=== PATIENT | female | born 1945 | race Caucasian/White ===

== ENCOUNTER 2016-07-14 14:19 | Inpatient (IN) | END 2016-07-23 19:15 | DRG 481 | DX: S72.142A Displaced intertrochanteric fracture of left femur, initial encounter for closed fracture (principal); E87.1 Hypo-osmolality and hyponatremia; E11.9 Type 2 diabetes mellitus without complications; D64.9 Anemia, unspecified; I10 Essential (primary) hypertension; Z85.3 Personal history of malignant neoplasm of breast; Y92.018 Other place in single-family (private) house as the place of occurrence of the external cause; W18.39XA Other fall on same level, initial encounter; Z79.4 Long term (current) use of insulin ==

== ENCOUNTER 2016-07-23 14:08 | Inpatient (IN) | payer MEDICARE, OTHER ==
[~2016-07-23] VITALS: Ht 157.5 cm; Wt 47.1 kg
[~2016-07-23 14:08] MED LIST: ASPI-664 PO; HYDR-3498 PO; LISI-313 PO; METF-382 PO; URE25 PO
[2016-07-23] MEDS ORDERED: GLUCOSE GEL 15 GRAM TUBE PO PRN ×2 (20:29)
[2016-07-23] MEDS ORDERED: GLUCOSE GEL 15 GRAM TUBE BUCCAL PRN (20:29)
[2016-07-23] MEDS ORDERED: GLUCAGON 1 MG INJ IM PRN (20:29)
[2016-07-23] MEDS ORDERED: NALOXONE (0.4 MG/ML) INJ IV PRN (20:29)
[2016-07-23] MEDS ORDERED: morphine 2 MG INJ IV PRN (20:29)
[2016-07-23] MEDS ORDERED: HYDROCODONE/APAP (5/325) TAB PO PRN (20:29)
[2016-07-23] MEDS ORDERED: DEXTROSE 50% 50 ML SYRINGE IV PRN ×2 (20:29)
[2016-07-23] MEDS ORDERED: NALBUPHINE HCL (10 MG/1 ML) INJ IV PRN (20:29)
[2016-07-23] MEDS ORDERED: ACETAMINOPHEN 325 MG TAB PO PRN (20:29)
[2016-07-23] MEDS ORDERED: ONDANSETRON 4 MG INJ IV PRN (20:29)
[2016-07-23] MEDS: INSULIN ASPART [NOVOLOG] 3 ML PEN SC SCH (21:00)
[2016-07-23] MEDS ORDERED: LISINOPRIL 10 MG TAB PO SCH (21:00)
[2016-07-23] MEDS: FERROUS SULFATE (EC) 325 MG TAB PO SCH (21:48)
[2016-07-23] MEDS: METOPROLOL 25 MG TAB PO SCH (21:49)
[2016-07-23] MEDS: BETHANECHOL 25 MG TAB PO SCH (21:49)
[2016-07-23 21:50] VITALS: BP 157/78; PULSE 64; RESP 18
[2016-07-24 01:41] VITALS: Ht 157.5 cm; Wt 47.1 kg
[2016-07-24] MEDS: ACCU-CHEK XX SCH (02:00)
[2016-07-24 06:49] LABS: ADD SCAN DIFF NO
[2016-07-24 06:55] LABS: BASOPHILS % 0.7 % (0.0-2.0); EOSINOPHILS # 0.1 10^3/ul (0.0-0.5); EOSINOPHILS % 3.1 % (0.0-7.0); HEMATOCRIT 26.7 % (37.0-47.0); HEMOGLOBIN 8.9 g/dl (12.0-16.0); LYMPHOCYTES # 0.6 10^3/ul (0.8-2.9); LYMPHOCYTES % 14.7 % (15.0-51.0); MEAN CORPUSCULAR HEMOGLOBIN 31.8 pg (29.0-33.0); MEAN CORPUSCULAR HGB CONC 33.3 g/dl (32.0-37.0); MEAN CORPUSCULAR VOLUME 95.4 fl (82.0-101.0); MEAN PLATELET VOLUME 8.8 fl (7.4-10.4); MONOCYTE # 0.4 10^3/ul (0.3-0.9); NEUTROPHILS % 71.8 % (39.0-77.0); PLATELET COUNT 393 10^3/UL (140-415); RED CELL DISTRIBUTION WIDTH 13.2 % (11.5-14.5); WHITE BLOOD COUNT 4.2 10^3/ul (4.8-10.8)
[2016-07-24 07:07] LABS: ALBUMIN 2.6 g/dl (3.3-4.9)
[2016-07-24 07:08] LABS: POTASSIUM 3.9 mmol/L (3.5-5.1)
[2016-07-24 07:10] LABS: ALBUMIN/GLOBULIN RATIO 0.83; BILIRUBIN,INDIRECT 0.1 mg/dl (0-1.1); BILIRUBIN,TOTAL 0.1 mg/dl (0.2-1.3); CALCIUM 8.4 mg/dl (8.4-10.2); CREATININE 0.64 mg/dl (0.44-1.00); TOTAL PROTEIN 5.7 g/dl (6.1-8.1)
[2016-07-24] MEDS: INSULIN ASPART [NOVOLOG] 3 ML PEN SC SCH ×4 (07:35→20:43)
[2016-07-24 07:39] VITALS: BP 187/84; RESP 18
[2016-07-24] MEDS: FERROUS SULFATE (EC) 325 MG TAB PO SCH ×3 (08:51→20:42)
[2016-07-24] MEDS: FAMOTIDINE 20 MG TAB PO SCH (08:51)
[2016-07-24] MEDS: ASPIRIN (EC) 81 MG TAB PO SCH (08:51)
[2016-07-24] MEDS: METOPROLOL 25 MG TAB PO SCH (08:52)
[2016-07-24] MEDS: metFORMIN 500 MG TAB PO SCH ×3 (08:52→17:36)
[2016-07-24] MEDS: BETHANECHOL 25 MG TAB PO SCH ×3 (08:52→20:42)
[2016-07-24] MEDS ORDERED: LISINOPRIL 5 MG TAB PO SCH (09:00)
[2016-07-24 11:35] VITALS: BP 196/95; PULSE 83; RESP 16
[2016-07-24] MEDS: HYDROCODONE/APAP (5/325) TAB PO PRN (12:15)
--- NOTE | 2016-07-24 12:16 | CONS ---
DATE OF ADMISSION: 07/23/2016 DATE OF CONSULTATION: 07/24/2016 TYPE OF CONSULTATION: Rehabilitation post-admission physician evaluation REHABILITATION IMPAIRMENT CATEGORY: Left intertrochanteric hip fracture status post ORIF. ACTIVE COMORBIDITIES: 1. Acute pain syndrome. 2. Hypertension. 3. Uncontrolled diabetes. 4. Left breast carcinoma with history of mastectomy and chemotherapy. 5. Impairments in self-care and mobility. HISTORY OF PRESENT ILLNESS: The patient is a pleasant 71-year-old female with a history of hyperten sunitha, breast CA and diabetes mellitus, who was admitted after a mechanical fall with resultant left intertrochanteric hip fracture. The patient underwent left hip ORIF on 07/18/2016. [place] [facility] [place]. The patient has now been cleared to transfer to the rehabilitation unit for comprehensive interdisciplinary rehab care. FUNCTIONAL HISTORY: Prior to recent events, she was independent in self-care tasks and mobility. C urrently, she requires maximal assist for self-care and maximal assist for mobility tasks. SOCIAL HISTORY: The patient reports living at home with family and hopes to return there upon disch arge. PAST MEDICAL HISTORY: 1. Breast CA, status post mastectomy and chemotherapy. 2. Hypertension. 3. Diabetes mellitus. CURRENT MEDICATIONS: 1. Aspirin 81 mg p.o. daily. 2. Urecholine 25 mg p.o. t.i.d. 3. Insulin sliding scale. 4. Pepcid 20 mg p.o. daily. 5. Ferrous sulfate 325 p.o. t.i.d. 6. [place] p.r.n. 7. Zestril 5 mg p.o. b.i.d. 8. Glucophage 500 mg with meals. 9. Metoprolol 12.5 mg p.o. b.i.d. 10. Hydralazine 25 mg p.o. q.8h. p.r.n. ALLERGIES: THE PATIENT WITH NO KNOWN DRUG ALLERGIES. PHYSICAL EXAMINATION: VITAL SIGNS: The patient is currently afebrile, elevated blood pressure 180/90. HEENT: Extraocular motion intact. Oropharynx clear. NECK: Supple. LUNGS: Clear anteriorly. CARDIAC: S1, S2. ABDOMEN: Soft, nontender, positive bowel sounds. NEUROLOGIC: She is awake and alert and oriented x3. She will follow simple 1-step commands. Crani al nerves appear grossly intact. She has good strength in bilateral upper extremities and the right lower extremity. Dorsiflexion and plantar flexion intact on the left. PLAN: The patient has been admitted for comprehensive interdisciplinary acute rehab and is anticipa elly to tolerate 3 hours of daily therapy in divided doses for at least 5/7 days a week. The treatme nt plan will include: 1. Physical therapy to focus on bed mobility, transfers, and household ambulation with the goal of having the patient reach a standby assist level. 2. Occupational therapy to focus on hygiene, grooming, dressing, bathing, and toileting activities with goal of having patient reach standby assist level. 3. Rehabilitation nursing for carryover of therapeutic interventions, the goal of [place] and bladder, and the goal of pain adequately managed on oral medications. REHABILITATION BARRIER: Pain. INTERVENTION FOR BARRIER: Comprehensive interdisciplinary approach. ESTIMATED LENGTH OF STAY: 14 days. DISPOSITION GOAL: Home. I acknowledge that I performed a full physical examination on this patient within 24 hours of admiss ion to the rehabilitation unit. I believe the patient is a good candidate for comprehensive interdi sciplinary rehab care and is anticipated to make reasonable goals in a reasonable period of time as outlined above. Dictated By: NEENA WILDE/ALTAGRACIA Conf#: [id number] DID#: [id number]
--- NOTE | 2016-07-24 12:40 | PN ---
Date/Time of Note Date/Time of Note DATE: 07/24/16 TIME: 12:35 Assessment/Plan VTE Prophylaxis VTE Prophylaxis Intervention: SCD's Assessment/Plan Chief Complaint/Hosp Course Assessment/Plan - Intertrochanteric fracture of the left hip. S/p ORIF of the left hip 07/[address] Anderson, orthopedic surgery. Continue PT. continue pain management. - Breast cancer, status post left breast mastectomy and chemotherapy - Diabetes mellitus type 2, continue metformin and NovoLog from mild algorithm sliding scale - Hypertension, continue lisinopril and hydralazine as needed. Dr. Hunt is following in cardiology consultation. Continue to optimize blood pressure medication per cardiology. Further recommendations based on clinical course. Plan of care discussed with Dr. Hinds. Problems: Subjective 24 Hr Interval Summary Free Text/Dictation Patient's continues to have elevated blood pressure, will give extra dose of 10 mg of lisinopril, continue hydralazine IV as needed for systolic blood pressure above 170. Patient also complains of the left hip pain requiring morphine. Patient remains afebrile denies nausea vomiting. Exam/Review of Systems Vital Signs Vitals Vital Signs Date Time Temp Pulse Resp B/P Pulse Ox O2 Delivery O2 Flow Rate FiO2 07/24/16 11:35 83 16 196/95 95 Room Air 07/24/16 07:39 98.4 Intake and Output 07/23/16 07/23/16 07/24/16 15:00 23:00 07:00 Intake Total 300 ml Balance 300 ml Exam Constitutional: alert, oriented, well developed Psych: nl mood/affect, no complaints Head: atraumatic, normocephalic Eyes: nl conjunctiva ENMT: nl external ears & nose, nl lips & teeth Neck: non-tender, supple Respiratory: clear to auscultation, normal air movement Cardiovascular: nl pulses, regular rate and rhythm Gastrointestinal: non-tender, soft Musculoskeletal: nl extremities to inspection, other (Status post left hip ORIF ) Extremities: normal pulses 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10 Glucose Level 108 Hematocrit 26.7 L Hemoglobin 8.9 L Indirect Bilirubin 0.1 Lymphocytes # 0.6 L Lymphocytes % 14.7 L Mean Corpuscular Hemoglobin 31.8 Mean Corpuscular Hemoglobin Concent 33.3 Mean Corpuscular Volume 95.4 Mean Platelet Volume 8.8 Monocytes # 0.4 Monocytes % 9.0 Neutrophils # 3.0 Neutrophils % 71.8 Nucleated Red Blood Cells # 0.0 Nucleated Red Blood Cells % 0.0 Platelet Count 393 Potassium Level 3.9 Red Blood Count 2.80 L Red Cell Distribution Width 13.2 Sodium Level 136 Total Bilirubin 0.1 L Total Protein 5.7 L White Blood Count 4.2 L Medications Medications Current Medications Acetaminophen (Tylenol Tab) 650 mg Q6H PRN PO PAIN LEVEL 1-3 OR FEVER; Start at 20:29 Aspirin (Halfprin) 81 mg DAILY PO Last administered on 07/24/16t 08:51; Admin Dose 81 MG; Start 07/23/16 at 20:29 Miscellaneous Information 1 ea NOTE XX ; Start 07/23/16 at 20:29 Glucose (Glutose) 15 gm Q15M PRN PO DECREASED GLUCOSE; Start 07/23/16 at 20:29 Glucose (Glutose) 22.5 gm Q15M PRN PO DECREASED GLUCOSE; Start 07/23/16 at 20: 29 Dextrose (D50w Syringe) 25 ml Q15M PRN IV DECREASED GLUCOSE; Start 07/23/16 at 20:29 Dextrose (D50w Syringe) 50 ml Q15M PRN IV DECREASED GLUCOSE; Start 07/23/16 at 20:29 Glucagon (Glucagen) 1 mg Q15M PRN IM DECREASED GLUCOSE; Start 07/23/16 at 20:29 Glucose (Glutose) 15 gm Q15M PRN BUCCAL DECREASED GLUCOSE; Start 07/23/16 at 20 :29 Nalbuphine HCl (Nubain) 2.5 mg Q4H PRN IV PRURITUS; Start 07/23/16 at 20:29 Ondansetron HCl (Zofran Inj) 4 mg Q6H PRN IV NAUSEA AND/OR VOMITING; Start at 20:29 Naloxone HCl (Narcan) 0.2 mg Q2M PRN IV FOR RESP RATE 8 OR LESS; Start at 20:29 Morphine Sulfate (morphine) 2 mg Q3H PRN IV PAIN Last administered on 10:09; Admin Dose 2 MG; Start 07/23/16 at 20:29 Diagnostic Test (Pha) (Accucheck) 1 ea 02 XX ; Start 07/23/16 at 20:29 Famotidine (Pepcid) 20 mg DAILY PO Last administered on 07/24/16 08:51; Admin Dose 20 MG; Start 07/23/16 at 20:29 Bethanechol Chloride (Urecholine) 25 mg TID PO Last administered on 07/24/16 12:14; Admin Dose 25 MG; Start 07/23/16 at 20:29 Ferrous Sulfate (Ferrous Sulfate (Ec)) 325 mg TID PO Last administered on 12:14; Admin Dose 325 MG; Start 07/23/16 at 20:29 Acetaminophen/ Hydrocodone Bitart ([place] (5/325)) 1 tab Q4H PRN PO PAIN Last administered on 07/24/16 12:15; Admin Dose 1 TAB; Start 07/23/16 at 21:00 Lisinopril (Zestril) 10 mg BID PO ; Start 07/24/16 at 21:00; Status UNV Hydralazine HCl (Apresoline) 10 mg Q6 PRN IV SBP>170; Start 07/24/16 at 12:30; Status UNV ERICK PRICE Jul 24, 2016 12:40
[2016-07-24] MEDS ORDERED: LISINOPRIL 10 MG TAB PO ONE (13:00)
[2016-07-24] MEDS: LISINOPRIL 5 MG TAB PO SCH ×2 (13:05→20:43)
[2016-07-24] MEDS: AMLODIPINE 5 MG TAB PO SCH (15:23)
--- NOTE | 2016-07-24 15:45 | CONS ---
Date/Time of Note Date/Time of Note DATE: 07/24/16 TIME: 15:44 Assessment/Plan Assessment/Plan Additional Assessment/Plan Hip fracture status post surgical repair Preserved ejection fraction Hypertension Diabetes Breast cancer -Blood pressure trend remains elevated, will start Norvasc and low-dose hydrochlorothiazide. Pain control. Consultation Date/Type/Reason Admit Date/Time Jul 23, 2016 at 19:40 Initial Consult Date Type of Consultation: cv 24 HR Interval Summary Free Text/Dictation Denies shortness of breath, chest pain or palpitations Exam/Review of Systems Vital Signs Vitals Vital Signs Date Time Temp Pulse Resp B/P Pulse Ox O2 Delivery O2 Flow Rate FiO2 07/24/16 11:35 83 16 196/95 95 Room Air 07/24/16 07:39 98.4 Intake and Output 07/23/16 07/23/16 07/24/16 14:59 22:59 06:59 Intake Total 300 ml Balance 300 ml Exam No apparent distress Constitutional: alert, oriented Head: normocephalic Neck: supple Respiratory: clear to auscultation, normal air movement Cardiovascular: other (S1-S2 heard), regular rate and rhythm Gastrointestinal: bowel sounds, non-tender, other (No guarding), soft Extremities: other (No edema or cyanosis) Results Result Diagram: 07/24/16 0615 07/24/16 0615 Results 24 hrs Laboratory Tests Test 07/23/16 21:18 07/24/16 06:15 07/24/16 07:34 07/24/16 11:29 Bedside Glucose 126 117 113 Alanine Aminotransferase (ALT/SGPT) 35 Albumin 2.6 L Albumin/Globulin Ratio 0.83 Alkaline Phosphatase 103 Anion Gap 13 Aspartate Amino Transf (AST/SGOT) 37 Basophils # 0.0 Basophils % 0.7 Blood Urea Nitrogen 14 Calcium Level 8.4 Carbon Dioxide Level 23 Chloride Level 104 Creatinine 0.64 Direct Bilirubin 0.00 Eosinophils # 0.1 Eosinophils % 3.1 Globulin 3.10 Glucose Level 108 Hematocrit 26.7 L Hemoglobin 8.9 L Indirect Bilirubin 0.1 Lymphocytes # 0.6 L Lymphocytes % 14.7 L Mean Corpuscular Hemoglobin 31.8 Mean Corpuscular Hemoglobin Concent 33.3 Mean Corpuscular Volume 95.4 Mean Platelet Volume 8.8 Monocytes # 0.4 Monocytes % 9.0 Neutrophils # 3.0 Neutrophils % 71.8 Nucleated Red Blood Cells # 0.0 Nucleated Red Blood Cells % 0.0 Platelet Count 393 Potassium Level 3.9 Red Blood Count 2.80 L Red Cell Distribution Width 13.2 Sodium Level 136 Total Bilirubin 0.1 L Total Protein 5.7 L White Blood Count 4.2 L Medications Medications Current Medications Acetaminophen (Tylenol Tab) 650 mg Q6H PRN PO PAIN LEVEL 1-3 OR FEVER; Start at 20:29 Aspirin (Halfprin) 81 mg DAILY PO Last administered on 07/24/16 08:51; Admin Dose 81 MG; Start 07/23/16 at 20:29 Miscellaneous Information 1 ea NOTE XX ; Start 07/23/16 at 20:29 Glucose (Glutose) 15 gm Q15M PRN PO DECREASED GLUCOSE; Start 07/23/16 at 20:29 Glucose (Glutose) 22.5 gm Q15M PRN PO DECREASED GLUCOSE; Start 07/23/16 at 20: 29 Dextrose (D50w Syringe) 25 ml Q15M PRN IV DECREASED GLUCOSE; Start 07/23/16 at 20:29 Dextrose (D50w Syringe) 50 ml Q15M PRN IV DECREASED GLUCOSE; Start 07/23/16 at 20:29 Glucagon (Glucagen) 1 mg Q15M PRN IM DECREASED GLUCOSE; Start 07/23/16 at 20:29 Glucose (Glutose) 15 gm Q15M PRN BUCCAL DECREASED GLUCOSE; Start 07/23/16 at 20 :29 Nalbuphine HCl (Nubain) 2.5 mg Q4H PRN IV PRURITUS; Start 07/23/16 at 20:29 Ondansetron HCl (Zofran Inj) 4 mg Q6H PRN IV NAUSEA AND/OR VOMITING; Start at 20:29 Naloxone HCl (Narcan) 0.2 mg Q2M PRN IV FOR RESP RATE 8 OR LESS; Start at 20:29 Morphine Sulfate (morphine) 2 mg Q3H PRN IV PAIN Last administered on 10:09; Admin Dose 2 MG; Start 07/23/16 at 20:29 Diagnostic Test (Pha) (Accucheck) 1 ea 02 XX ; Start 07/23/16 at 20:29 Famotidine (Pepcid) 20 mg DAILY PO Last administered on 07/24/16 08:51; Admin Dose 20 MG; Start 07/23/16 at 20:29 Bethanechol Chloride (Urecholine) 25 mg TID PO Last administered on 07/24/16 12:14; Admin Dose 25 MG; Start 07/23/16 at 20:29 Ferrous Sulfate (Ferrous Sulfate (Ec)) 325 mg TID PO Last administered on 12:14; Admin Dose 325 MG; Start 07/23/16 at 20:29 Acetaminophen/ Hydrocodone Bitart ([place] (5/325)) 1 tab Q4H PRN PO PAIN Last administered on 07/24/16 12:15; Admin Dose 1 TAB; Start 07/23/16 at 21:00 Lisinopril (Zestril) 10 mg BID PO Last administered on 07/24/16 13:05; Admin Dose 10 MG; Start 07/24/16 at 13:00 Hydralazine HCl (Apresoline) 10 mg Q6 PRN IV SBP>170; Start 07/24/16 at 12:30 Amlodipine Besylate (Norvasc) 5 mg DAILY PO Last administered on 07/24/16 15: 23; Admin Dose 5 MG; Start 07/24/16 at 15:00 Jose Hunt DO Jul 24, 2016 15:45
[2016-07-24] MEDS ORDERED: HYDROCHLOROTHIAZIDE 12.5 MG CAP PO SCH (16:00)
[2016-07-24] MEDS ORDERED: HYDROCHLOROTHIAZIDE 25 MG TAB PO SCH (16:00)
[2016-07-24] MEDS: HYDROCHLOROTHIAZIDE 25 MG TAB PO SCH (17:37)
[2016-07-24 19:36] VITALS: BP 158/74; RESP 19
[2016-07-25 00:47] LABS: ADD UMIC YES; URINE BILIRUBIN (Dip) NEGATIVE (NEGATIVE); URINE BLOOD (Dip) TRACE (NEGATIVE); URINE COLOR LT. YELLOW (YELLOW); URINE GLUCOSE (Dip) NEGATIVE (NEGATIVE); URINE KETONES (Dip) NEGATIVE (NEGATIVE); URINE LEUKOCYTE ESTERASE (Dip) NEGATIVE (NEGATIVE); URINE NITRITE (Dip) NEGATIVE (NEGATIVE); URINE TOTAL PROTEIN (Dip) 2+ (NEGATIVE); URINE UROBILINOGEN (Dip) 0.2 E.U./dL (0.1-1.0)
[2016-07-25 00:56] LABS: MUCUS,URINE MODERATE
[2016-07-25 00:57] LABS: SQUAMOUS EPITHELIAL CELL,UR MODERATE
[2016-07-25] MEDS: ACCU-CHEK XX SCH (02:00)
[2016-07-25] MEDS: INSULIN ASPART [NOVOLOG] 3 ML PEN SC SCH ×4 (07:35→20:23)
[2016-07-25 08:08] VITALS: BP 189/88; RESP 18
[2016-07-25] MEDS: ASPIRIN (EC) 81 MG TAB PO SCH (08:49)
[2016-07-25] MEDS: metFORMIN 500 MG TAB PO SCH ×3 (08:49→17:42)
[2016-07-25] MEDS: HYDROCHLOROTHIAZIDE 25 MG TAB PO SCH (08:49)
[2016-07-25] MEDS: FERROUS SULFATE (EC) 325 MG TAB PO SCH ×3 (08:49→20:22)
[2016-07-25] MEDS: BETHANECHOL 25 MG TAB PO SCH ×3 (08:50→20:23)
[2016-07-25] MEDS: LISINOPRIL 5 MG TAB PO SCH ×2 (08:50→20:23)
[2016-07-25] MEDS: AMLODIPINE 5 MG TAB PO SCH ×2 (08:50→20:23)
[2016-07-25] MEDS: FAMOTIDINE 20 MG TAB PO SCH (08:50)
[2016-07-25] MEDS: HYDROCODONE/APAP (5/325) TAB PO PRN (09:48)
[2016-07-25 09:50] VITALS: BP 176/82; PULSE 91; RESP 20
[2016-07-25] MEDS: hydrALAzine 20 MG INJ IV PRN (10:52)
[2016-07-25 11:40] VITALS: BP 145/68; PULSE 88; RESP 20
--- NOTE | 2016-07-25 11:49 | PN ---
Date/Time of Note Date/Time of Note DATE: 07/25/16 TIME: 11:48 Assessment/Plan VTE Prophylaxis VTE Prophylaxis Intervention: SCD's Lines/Catheters IV Catheter Type (from Nrs): [place] Urinary Cath still in place: No Assessment/Plan Chief Complaint/Hosp Course Assessment/Plan - Intertrochanteric fracture of the left hip. S/p ORIF of the left hip 07/[address] Anderson, orthopedic surgery. Continue PT. continue pain management. - Breast cancer, status post left breast mastectomy and chemotherapy - Diabetes mellitus type 2, continue metformin and NovoLog from mild algorithm sliding scale - Hypertension, continue lisinopril, Norvasc, and hydralazine as needed. Dr. Hunt is following in cardiology consultation. Continue to optimize blood pressure medication per cardiology. Further recommendations based on clinical course. Plan of care discussed with Dr. Hinds. Problems: Exam/Review of Systems Vital Signs Vitals Vital Signs Date Time Temp Pulse Resp B/P Pulse Ox O2 Delivery O2 Flow Rate FiO2 07/25/16 09:50 91 20 176/82 07/25/16 08:08 98.5 97 07/24/16 11:35 Room Air Intake and Output 07/24/16 07/24/16 07/25/16 14:59 22:59 06:59 Intake Total 1370 ml 360 ml 240 ml Balance 1370 ml 360 ml 240 ml Exam Constitutional: alert, oriented, well developed Psych: nl mood/affect, no complaints Head: atraumatic, normocephalic Eyes: nl conjunctiva ENMT: nl external ears & nose, nl lips & teeth Neck: non-tender, supple Respiratory: clear to auscultation, normal air movement Cardiovascular: nl pulses, regular rate and rhythm Gastrointestinal: non-tender, soft Musculoskeletal: nl extremities to inspection, other (Status post left hip ORIF ) Extremities: normal pulses Neurological: SLURRY CONTROL OPERATOR HELPER II-XII 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 Skin: other (Status post left mastectomy) Results Result Diagram: 07/24/1615 07/24/1615 Results 24 hrs Laboratory Tests Test 07/24/16 17:11 07/24/16 20:40 07/25/16 07:51 07/25/16 11:41 Bedside Glucose 108 125 119 111 Medications Medications Current Medications Acetaminophen (Tylenol Tab) 650 mg Q6H PRN PO PAIN LEVEL 1-3 OR FEVER; Start 3 /13/17 at 20:29 Aspirin (Halfprin) 81 mg DAILY PO Last administered on 07/25/16 08:49; Admin Dose 81 MG; Start 07/23/16 at 20:29 Miscellaneous Information 1 ea NOTE XX ; Start 07/23/16 at 20:29 Glucose (Glutose) 15 gm Q15M PRN PO DECREASED GLUCOSE; Start 07/23/16 at 20:29 Glucose (Glutose) 22.5 gm Q15M PRN PO DECREASED GLUCOSE; Start 07/23/16 at 20: 29 Dextrose (D50w Syringe) 25 ml Q15M PRN IV DECREASED GLUCOSE; Start 07/23/16 at 20:29 Dextrose (D50w Syringe) 50 ml Q15M PRN IV DECREASED GLUCOSE; Start 07/23/16 at 20:29 Glucagon (Glucagen) 1 mg Q15M PRN IM DECREASED GLUCOSE; Start 07/23/16 at 20:29 Glucose (Glutose) 15 gm Q15M PRN BUCCAL DECREASED GLUCOSE; Start 07/23/16 at 20 :29 Nalbuphine HCl (Nubain) 2.5 mg Q4H PRN IV PRURITUS; Start 07/23/16 at 20:29 Ondansetron HCl (Zofran Inj) 4 mg Q6H PRN IV NAUSEA AND/OR VOMITING; Start at 20:29 Naloxone HCl (Narcan) 0.2 mg Q2M PRN IV FOR RESP RATE 8 OR LESS; Start at 20:29 Morphine Sulfate (morphine) 2 mg Q3H PRN IV PAIN Last administered on 10:09; Admin Dose 2 MG; Start 07/23/16 at 20:29 Diagnostic Test (Pha) (Accucheck) 1 ea 02 XX ; Start 07/23/16 at 20:29 Famotidine (Pepcid) 20 mg DAILY PO Last administered on 07/25/16 08:50; Admin Dose 20 MG; Start 07/23/16 at 20:29 Bethanechol Chloride (Urecholine) 25 mg TID PO Last administered on 07/25/16 08:50; Admin Dose 25 MG; Start 07/23/16 at 20:29 Ferrous Sulfate (Ferrous Sulfate (Ec)) 325 mg TID PO Last administered on 08:49; Admin Dose 325 MG; Start 07/23/16 at 20:29 Acetaminophen/ Hydrocodone Bitart ([place] (5/325)) 1 tab Q4H PRN PO PAIN Last administered on 07/25/16 09:48; Admin Dose 1 TAB; Start 07/23/16 at 21:00 Lisinopril (Zestril) 10 mg BID PO Last administered on 07/25/16 08:50; Admin Dose 10 MG; Start 07/24/16 at 13:00 Hydralazine HCl (Apresoline) 10 mg Q6 PRN IV SBP>170 Last administered on 10:52; Admin Dose 10 MG; Start 07/24/16 at 12:30 Hydrochlorothiazide (Hydrochlorothiazide) 6.25 mg DAILY PO Last administered on 07/25/16 08:49; Admin Dose 6.25 MG; Start 07/24/16 at 16:30 Amlodipine Besylate (Norvasc) 5 mg BID PO ; Start 07/25/16 at 21:00 ERICK PRICE Jul 25, 2016 11:49
--- NOTE | 2016-07-25 11:59 | CONS ---
Date/Time of Note Date/Time of Note DATE: 07/25/16 TIME: 11:57 Assessment/Plan Assessment/Plan Additional Assessment/Plan Hip fracture status post surgical repair Preserved ejection fraction Hypertension, uncontrolled Diabetes Breast cancer -Blood pressure trend remains elevated, would increase Norvasc to twice daily. Patient also has hydralazine as needed. Consultation Date/Type/Reason Admit Date/Time Jul 23, 2016 at 19:40 Type of Consultation: cv 24 HR Interval Summary Free Text/Dictation Patient complaining of dizziness during physical therapy. Blood pressure elevated. Feels better now after medication Exam/Review of Systems Vital Signs Vitals Vital Signs Date Time Temp Pulse Resp B/P Pulse Ox O2 Delivery O2 Flow Rate FiO2 07/25/16 09:50 91 20 176/82 07/25/16 08:08 98.5 97 07/24/16 11:35 Room Air Intake and Output 07/24/16 07/24/16 07/25/16 15:00 23:00 07:00 Intake Total 1370 ml 360 ml 240 ml Balance 1370 ml 360 ml 240 ml Exam No apparent distress Constitutional: alert, frail, oriented Head: normocephalic Neck: supple Respiratory: clear to auscultation, normal air movement Cardiovascular: other (S1-S2 heard), regular rate and rhythm Gastrointestinal: bowel sounds, non-tender, other (No guarding), soft Extremities: other (No edema or cyanosis) Results Result Diagram: 07/24/16 0615 07/24/16 0615 Results 24 hrs Laboratory Tests Test 07/24/16 17:11 07/24/16 20:40 07/25/16 07:51 07/25/16 11:41 Bedside Glucose 108 125 119 111 Medications Medications Current Medications Acetaminophen (Tylenol Tab) 650 mg Q6H PRN PO PAIN LEVEL 1-3 OR FEVER; Start at 20:29 Aspirin (Halfprin) 81 mg DAILY PO Last administered on 07/25/16t 08:49; Admin Dose 81 MG; Start 07/23/16 at 20:29 Miscellaneous Information 1 ea NOTE XX ; Start 07/23/16 at 20:29 Glucose (Glutose) 15 gm Q15M PRN PO DECREASED GLUCOSE; Start 07/23/16 at 20:29 Glucose (Glutose) 22.5 gm Q15M PRN PO DECREASED GLUCOSE; Start 07/23/16 at 20: 29 Dextrose (D50w Syringe) 25 ml Q15M PRN IV DECREASED GLUCOSE; Start 07/23/16 at 20:29 Dextrose (D50w Syringe) 50 ml Q15M PRN IV DECREASED GLUCOSE; Start 07/23/16 at 20:29 Glucagon (Glucagen) 1 mg Q15M PRN IM DECREASED GLUCOSE; Start 07/23/16 at 20:29 Glucose (Glutose) 15 gm Q15M PRN BUCCAL DECREASED GLUCOSE; Start 07/23/16 at 20 :29 Nalbuphine HCl (Nubain) 2.5 mg Q4H PRN IV PRURITUS; Start 07/23/16 at 20:29 Ondansetron HCl (Zofran Inj) 4 mg Q6H PRN IV NAUSEA AND/OR VOMITING; Start at 20:29 Naloxone HCl (Narcan) 0.2 mg Q2M PRN IV FOR RESP RATE 8 OR LESS; Start at 20:29 Morphine Sulfate (morphine) 2 mg Q3H PRN IV PAIN Last administered on 10:09; Admin Dose 2 MG; Start 07/23/16 at 20:29 Diagnostic Test (Pha) (Accucheck) 1 ea 02 XX ; Start 07/23/16 at 20:29 Famotidine (Pepcid) 20 mg DAILY PO Last administered on 07/25/16 08:50; Admin Dose 20 MG; Start 07/23/16 at 20:29 Bethanechol Chloride (Urecholine) 25 mg TID PO Last administered on 07/25/16 08:50; Admin Dose 25 MG; Start 07/23/16 at 20:29 Ferrous Sulfate (Ferrous Sulfate (Ec)) 325 mg TID PO Last administered on 08:49; Admin Dose 325 MG; Start 07/23/16 at 20:29 Acetaminophen/ Hydrocodone Bitart ([place] (5/325)) 1 tab Q4H PRN PO PAIN Last administered on 07/25/16 09:48; Admin Dose 1 TAB; Start 07/23/16 at 21:00 Lisinopril (Zestril) 10 mg BID PO Last administered on 07/25/16 08:50; Admin Dose 10 MG; Start 07/24/16 at 13:00 Hydralazine HCl (Apresoline) 10 mg Q6 PRN IV SBP>170 Last administered on 10:52; Admin Dose 10 MG; Start 07/24/16 at 12:30 Hydrochlorothiazide (Hydrochlorothiazide) 6.25 mg DAILY PO Last administered on 07/25/16 08:49; Admin Dose 6.25 MG; Start 07/24/16 at 16:30 Amlodipine Besylate (Norvasc) 5 mg BID PO ; Start 07/25/16 at 21:00 Jose Hunt DO Jul 25, 2016 11:58
--- NOTE | 2016-07-25 13:07 | PN ---
Date/Time of Note Date/Time of Note DATE: 07/25/16 TIME: 13:03 Assessment/Plan VTE Prophylaxis VTE Prophylaxis Intervention: LMWH Lines/Catheters IV Catheter Type (from Nrsg): Saline Lock Urinary Cath still in place: No Assessment/Plan Assessment/Plan 1. Left intertrochanteric hip fracture status post ORIF. With impaired mobility/ gait/ADLs. Continue PT/OT. Max assistance for transfers. 2. Acute postoperative pain syndrome. Continue current pain regimen including prn norco. May need to adjust further if pain contributing to increased BP. 3. Hypertension. BP elevated. Cardiology adjusting regimen. 4. Diabetes. Continue to monitor blood sugars, blood sugars controlled. Continue regimen including metformin and insulin sliding scale per internal medicine. 5. History of left breast carcinoma s/p mastectomy and chemotherapy. 6. Anemia. Monitor hemoglobin/hematocrit. Subjective 24 Hr Interval Summary Free Text/Dictation Rehab progress note Subjective: Reports moderate pain in left hip currently. ROS: Denies headache, no chills, no abdominal pain, no nausea, no chest pain, no palpitations, no shortness of breath. Exam/Review of Systems Vital Signs Vitals Vital Signs Date Time Temp Pulse Resp B/P Pulse Ox O2 Delivery O2 Flow Rate FiO2 07/25/16 11:40 88 20 145/68 07/25/16 08:08 98.5 97 07/24/16 11:35 Room Air Intake and Output 07/24/16 07/24/16 07/25/16 15:00 23:00 07:00 Intake Total 1370 ml 360 ml 240 ml Balance 1370 ml 360 ml 240 ml Exam General: Awake, alert, no acute distress CV: Regular rate, s1s2 Lungs: No wheezing, no crackles, respirations nonlabored Abdomen soft, nontender Extremities without cyanosis, calves nontender Neuro: Follows simple commands. L DF/PF intact. Results Result Diagram: 07/24/16 0615 07/24/16 0615 Results 24 hrs Laboratory Tests Test 07/24/16 17:11 07/24/16 20:40 07/25/16 07:51 07/25/16 11:41 Bedside Glucose 108 125 119 111 Medications Medications Current Medications Acetaminophen (Tylenol Tab) 650 mg Q6H PRN PO PAIN LEVEL 1-3 OR FEVER; Start at 20:29 Aspirin (Halfprin) 81 mg DAILY PO Last administered on 07/25/16 08:49; Admin Dose 81 MG; Start 07/23/16 at 20:29 Miscellaneous Information 1 ea NOTE XX ; Start 07/23/16 at 20:29 Glucose (Glutose) 15 gm Q15M PRN PO DECREASED GLUCOSE; Start 07/23/16 at 20:29 Glucose (Glutose) 22.5 gm Q15M PRN PO DECREASED GLUCOSE; Start 07/23/16 at 20: 29 Dextrose (D50w Syringe) 25 ml Q15M PRN IV DECREASED GLUCOSE; Start 07/23/16 at 20:29 Dextrose (D50w Syringe) 50 ml Q15M PRN IV DECREASED GLUCOSE; Start 07/23/16 at 20:29 Glucagon (Glucagen) 1 mg Q15M PRN IM DECREASED GLUCOSE; Start 07/23/16 at 20:29 Glucose (Glutose) 15 gm Q15M PRN BUCCAL DECREASED GLUCOSE; Start 07/23/16 at 20 :29 Nalbuphine HCl (Nubain) 2.5 mg Q4H PRN IV PRURITUS; Start 07/23/16 at 20:29 Ondansetron HCl (Zofran Inj) 4 mg Q6H PRN IV NAUSEA AND/OR VOMITING; Start at 20:29 Naloxone HCl (Narcan) 0.2 mg Q2M PRN IV FOR RESP RATE 8 OR LESS; Start at 20:29 Morphine Sulfate (morphine) 2 mg Q3H PRN IV PAIN Last administered on 10:09; Admin Dose 2 MG; Start 07/23/16 at 20:29 Diagnostic Test (Pha) (Accucheck) 1 ea 02 XX ; Start 07/23/16 at 20:29 Famotidine (Pepcid) 20 mg DAILY PO Last administered on 07/25/16 08:50; Admin Dose 20 MG; Start 07/23/16 at 20:29 Bethanechol Chloride (Urecholine) 25 mg TID PO Last administered on 07/25/16 12:19; Admin Dose 25 MG; Start 07/23/16 at 20:29 Ferrous Sulfate (Ferrous Sulfate (Ec)) 325 mg TID PO Last administered on 12:19; Admin Dose 325 MG; Start 07/23/16 at 20:29 Acetaminophen/ Hydrocodone Bitart ([place] (5/325)) 1 tab Q4H PRN PO PAIN Last administered on 07/25/16 09:48; Admin Dose 1 TAB; Start 07/23/16 at 21:00 Lisinopril (Zestril) 10 mg BID PO Last administered on 07/25/16 08:50; Admin Dose 10 MG; Start 07/24/16 at 13:00 Hydralazine HCl (Apresoline) 10 mg Q6 PRN IV SBP>170 Last administered on 10:52; Admin Dose 10 MG; Start 07/24/16 at 12:30 Hydrochlorothiazide (Hydrochlorothiazide) 6.25 mg DAILY PO Last administered on 07/25/16 08:49; Admin Dose 6.25 MG; Start 07/24/16 at 16:30 Amlodipine Besylate (Norvasc) 5 mg BID PO ; Start 07/25/16 at 21:00 NANCIE GALAN Jul 25, 2016 13:07
[2016-07-25 17:20] VITALS: BP 148/65; PULSE 91; RESP 20
[2016-07-25 20:39] VITALS: BP_SYST 153; BP_SYST 159; BP_DIAS 70; BP_DIAS 73; RESP 18
[2016-07-26] MEDS: ACCU-CHEK XX SCH (02:00)
[2016-07-26] MEDS: INSULIN ASPART [NOVOLOG] 3 ML PEN SC SCH ×4 (07:35→20:38)
[2016-07-26 08:00] VITALS: BP 155/67; PULSE 92; RESP 18
[2016-07-26] MEDS: LISINOPRIL 5 MG TAB PO SCH ×2 (08:41→20:38)
[2016-07-26] MEDS: FERROUS SULFATE (EC) 325 MG TAB PO SCH ×3 (08:41→20:37)
[2016-07-26] MEDS: BETHANECHOL 25 MG TAB PO SCH ×3 (08:41→20:37)
[2016-07-26] MEDS: metFORMIN 500 MG TAB PO SCH ×3 (08:41→17:48)
[2016-07-26] MEDS: FAMOTIDINE 20 MG TAB PO SCH (08:42)
[2016-07-26] MEDS: ASPIRIN (EC) 81 MG TAB PO SCH (08:42)
[2016-07-26] MEDS: AMLODIPINE 5 MG TAB PO SCH (08:44)
[2016-07-26] MEDS: HYDROCHLOROTHIAZIDE 25 MG TAB PO SCH (08:44)
[2016-07-26] MEDS: HYDROCODONE/APAP (5/325) TAB PO PRN (09:40)
--- NOTE | 2016-07-26 11:55 | CONS ---
Date/Time of Note Date/Time of Note DATE: 07/26/16 TIME: 11:55 Consult Date/Type/Reason Admit Date/Time Jul 23, 2016 at 19:40 Initial Consult Date Type of Consultation: cv Subjective comfortable Objective pulm-cta max assist Vital Signs Date Time Temp Pulse Resp B/P Pulse Ox O2 Delivery O2 Flow Rate FiO2 07/26/16 08:00 98.4 92 18 155/67 95 Room Air Intake and Output 07/25/16 07/25/16 07/26/16 15:00 23:00 07:00 Intake Total 720 ml 360 ml Balance 720 ml 360 ml Results/Medications Result Diagram: 07/24/16 0615 07/24/16 0615 Results 24 hrs Laboratory Tests Test 07/25/16 17:19 07/25/16 20:21 07/26/16 07:51 Bedside Glucose 116 133 110 Medications Current Medications Acetaminophen (Tylenol Tab) 650 mg Q6H PRN PO PAIN LEVEL 1-3 OR FEVER; Start at 20:29 Aspirin (Halfprin) 81 mg DAILY PO Last administered on 07/26/16t 08:42; Admin Dose 81 MG; Start 07/23/16 at 20:29 Miscellaneous Information 1 ea NOTE XX ; Start 07/23/16 at 20:29 Glucose (Glutose) 15 gm Q15M PRN PO DECREASED GLUCOSE; Start 07/23/16 at 20:29 Glucose (Glutose) 22.5 gm Q15M PRN PO DECREASED GLUCOSE; Start 07/23/16 at 20: 29 Dextrose (D50w Syringe) 25 ml Q15M PRN IV DECREASED GLUCOSE; Start 07/23/16 at 20:29 Dextrose (D50w Syringe) 50 ml Q15M PRN IV DECREASED GLUCOSE; Start 07/23/16 at 20:29 Glucagon (Glucagen) 1 mg Q15M PRN IM DECREASED GLUCOSE; Start 07/23/16 at 20:29 Glucose (Glutose) 15 gm Q15M PRN BUCCAL DECREASED GLUCOSE; Start 07/23/16 at 20 :29 Nalbuphine HCl (Nubain) 2.5 mg Q4H PRN IV PRURITUS; Start 07/23/16 at 20:29 Ondansetron HCl (Zofran Inj) 4 mg Q6H PRN IV NAUSEA AND/OR VOMITING; Start at 20:29 Naloxone HCl (Narcan) 0.2 mg Q2M PRN IV FOR RESP RATE 8 OR LESS; Start at 20:29 Morphine Sulfate (morphine) 2 mg Q3H PRN IV PAIN Last administered on 10:09; Admin Dose 2 MG; Start 07/23/16 at 20:29 Diagnostic Test (Pha) (Accucheck) 1 ea 02 XX ; Start 07/23/16 at 20:29 Famotidine (Pepcid) 20 mg DAILY PO Last administered on 07/26/16 08:42; Admin Dose 20 MG; Start 07/23/16 at 20:29 Bethanechol Chloride (Urecholine) 25 mg TID PO Last administered on 07/26/16 08:41; Admin Dose 25 MG; Start 07/23/16 at 20:29 Ferrous Sulfate (Ferrous Sulfate (Ec)) 325 mg TID PO Last administered on 08:41; Admin Dose 325 MG; Start 07/23/16 at 20:29 Acetaminophen/ Hydrocodone Bitart ([place] (5/325)) 1 tab Q4H PRN PO PAIN Last administered on 07/26/16 09:40; Admin Dose 1 TAB; Start 07/23/16 at 21:00 Lisinopril (Zestril) 10 mg BID PO Last administered on 07/26/16 08:41; Admin Dose 10 MG; Start 07/24/16 at 13:00 Hydralazine HCl (Apresoline) 10 mg Q6 PRN IV SBP>170 Last administered on 10:52; Admin Dose 10 MG; Start 07/24/16 at 12:30 Hydrochlorothiazide (Hydrochlorothiazide) 6.25 mg DAILY PO Last administered on 07/26/16 08:44; Admin Dose 6.25 MG; Start 07/24/16 at 16:30 Amlodipine Besylate (Norvasc) 5 mg BID PO Last administered on 07/26/16 08:44 ; Admin Dose 5 MG; Start 07/25/16 at 21:00 Assessment/Plan Additional Assessment/Plan Rehab- Left intertrochanteric hip fracture status post ORIF. Continue rehab therapies Acute pain syndrome. Hypertension. Uncontrolled diabetes. Left breast carcinoma with history of mastectomy and chemotherapy. NEENA BOYLE MD Jul 26, 2016 11:55
--- NOTE | 2016-07-26 14:46 | PN ---
Date/Time of Note Date/Time of Note DATE: 07/26/16 TIME: 14:44 Assessment/Plan VTE Prophylaxis VTE Prophylaxis Intervention: SCD's Lines/Catheters IV Catheter Type (from Nrs): Saline Lock Urinary Cath still in place: No Assessment/Plan Assessment/Plan Hip fracture status post surgical repair Preserved ejection fraction Hypertension, uncontrolled Diabetes Breast cancer -Blood pressure stable physcial therapy Subjective 24 Hr Interval Summary Free Text/Dictation The jazlyndorian gonzalez at this time Exam/Review of Systems Vital Signs Vitals Vital Signs Date Time Temp Pulse Resp B/P Pulse Ox O2 Delivery O2 Flow Rate FiO2 07/26/16 08:00 98.4 92 18 155/67 95 Room Air Intake and Output 07/25/16 07/25/16 07/26/16 15:00 23:00 07:00 Intake Total 720 ml 360 ml Balance 720 ml 360 ml Results Result Diagram: 07/24/16 0615 07/24/16 0615 Results 24 hrs Laboratory Tests Test 07/25/16 17:19 07/25/16 20:21 07/26/16 07:51 07/26/16 12:10 Bedside Glucose 116 133 110 109 Medications Medications Current Medications Acetaminophen (Tylenol Tab) 650 mg Q6H PRN PO PAIN LEVEL 1-3 OR FEVER; Start at 20:29 Aspirin (Halfprin) 81 mg DAILY PO Last administered on 07/26/16t 08:42; Admin Dose 81 MG; Start 07/23/16 at 20:29 Miscellaneous Information 1 ea NOTE XX ; Start 07/23/16 at 20:29 Glucose (Glutose) 15 gm Q15M PRN PO DECREASED GLUCOSE; Start 07/23/16 at 20:29 Glucose (Glutose) 22.5 gm Q15M PRN PO DECREASED GLUCOSE; Start 07/23/16 at 20: 29 Dextrose (D50w Syringe) 25 ml Q15M PRN IV DECREASED GLUCOSE; Start 07/23/16 at 20:29 Dextrose (D50w Syringe) 50 ml Q15M PRN IV DECREASED GLUCOSE; Start 07/23/16 at 20:29 Glucagon (Glucagen) 1 mg Q15M PRN IM DECREASED GLUCOSE; Start 07/23/16 at 20:29 Glucose (Glutose) 15 gm Q15M PRN BUCCAL DECREASED GLUCOSE; Start 07/23/16 at 20 :29 Nalbuphine HCl (Nubain) 2.5 mg Q4H PRN IV PRURITUS; Start 07/23/16 at 20:29 Ondansetron HCl (Zofran Inj) 4 mg Q6H PRN IV NAUSEA AND/OR VOMITING; Start at 20:29 Naloxone HCl (Narcan) 0.2 mg Q2M PRN IV FOR RESP RATE 8 OR LESS; Start at 20:29 Morphine Sulfate (morphine) 2 mg Q3H PRN IV PAIN Last administered on 10:09; Admin Dose 2 MG; Start 07/23/16 at 20:29 Diagnostic Test (Pha) (Accucheck) 1 ea 02 XX ; Start 07/23/16 at 20:29 Famotidine (Pepcid) 20 mg DAILY PO Last administered on 07/26/16 08:42; Admin Dose 20 MG; Start 07/23/16 at 20:29 Bethanechol Chloride (Urecholine) 25 mg TID PO Last administered on 07/26/16 12:44; Admin Dose 25 MG; Start 07/23/16 at 20:29 Ferrous Sulfate (Ferrous Sulfate (Ec)) 325 mg TID PO Last administered on 12:44; Admin Dose 325 MG; Start 07/23/16 at 20:29 Acetaminophen/ Hydrocodone Bitart ([place] (5/325)) 1 tab Q4H PRN PO PAIN Last administered on 07/26/16 09:40; Admin Dose 1 TAB; Start 07/23/16 at 21:00 Lisinopril (Zestril) 10 mg BID PO Last administered on 07/26/16 08:41; Admin Dose 10 MG; Start 07/24/16 at 13:00 Hydralazine HCl (Apresoline) 10 mg Q6 PRN IV SBP>170 Last administered on 10:52; Admin Dose 10 MG; Start 07/24/16 at 12:30 Hydrochlorothiazide (Hydrochlorothiazide) 6.25 mg DAILY PO Last administered on 07/26/16 08:44; Admin Dose 6.25 MG; Start 07/24/16 at 16:30 Amlodipine Besylate (Norvasc) 5 mg BID PO Last administered on 07/26/16 08:44 ; Admin Dose 5 MG; Start 07/25/16 at 21:00 JUAN C PANDYA MD Jul 26, 2016 14:45
--- NOTE | 2016-07-26 15:27 | PN ---
Date/Time of Note Date/Time of Note DATE: 07/26/16 TIME: 15:26 Assessment/Plan VTE Prophylaxis VTE Prophylaxis Intervention: heparin, other Lines/Catheters IV Catheter Type (from Nrsg): Saline Lock Urinary Cath still in place: No Assessment/Plan Assessment/Plan - Intertrochanteric fracture of the left hip. S/p ORIF of the left hip 07/[address] Anderson, orthopedic surgery. Continue PT. continue pain management. - Breast cancer, status post left breast mastectomy and chemotherapy - Diabetes mellitus type 2, continue metformin and NovoLog from mild algorithm sliding scale - Hypertension, continue lisinopril, Norvasc, and hydralazine as needed. Dr. Hunt is following in cardiology consultation. Continue to optimize blood pressure medication per cardiology. Further recommendations based on clinical course. Plan of care discussed with Dr. Hinds. Subjective 24 Hr Interval Summary Constitutional: improved Eyes: no complaints ENT: no complaints Respiratory: no complaints Cardiovascular: no complaints Gastrointestinal: no complaints Genitourinary: no complaints Musculoskeletal: bone/joint pain Skin: no complaints Neurologic: no complaints Endocrine: no complaints Lymphatic: no complaints Psychological: no complaints Immunologic: no complaints Exam/Review of Systems Vital Signs Vitals Vital Signs Date Time Temp Pulse Resp B/P Pulse Ox O2 Delivery O2 Flow Rate FiO2 07/26/16 08:00 98.4 92 18 155/67 95 Room Air Intake and Output 07/25/16 07/25/16 07/26/16 15:00 23:00 07:00 Intake Total 720 ml 360 ml Balance 720 ml 360 ml Exam Constitutional: alert, oriented, well developed Psych: nl mood/affect Head: atraumatic Eyes: EOMI ENMT: nl external ears & nose Neck: non-tender Respiratory: normal air movement Cardiovascular: nl pulses, regular rate and rhythm Gastrointestinal: nl liver, spleen, non-tender, soft Musculoskeletal: nl extremities to inspection Extremities: normal pulses Neurological: nl mental status, nl speech Skin: nl turgor Lymph: nontender Results Result Diagram: 07/24/16 0615 07/24/1615 Results 24 hrs Laboratory Tests Test 07/25/16 17:19 07/25/16 20:21 07/26/16 07:51 07/26/16 12:10 Bedside Glucose 116 133 110 109 Medications Medications Current Medications Acetaminophen (Tylenol Tab) 650 mg Q6H PRN PO PAIN LEVEL 1-3 OR FEVER; Start at 20:29 Aspirin (Halfprin) 81 mg DAILY PO Last administered on 07/26/16 08:42; Admin Dose 81 MG; Start 07/23/16 at 20:29 Miscellaneous Information 1 ea NOTE XX ; Start 07/23/16 at 20:29 Glucose (Glutose) 15 gm Q15M PRN PO DECREASED GLUCOSE; Start 07/23/16 at 20:29 Glucose (Glutose) 22.5 gm Q15M PRN PO DECREASED GLUCOSE; Start 07/23/16 at 20: 29 Dextrose (D50w Syringe) 25 ml Q15M PRN IV DECREASED GLUCOSE; Start 07/23/16 at 20:29 Dextrose (D50w Syringe) 50 ml Q15M PRN IV DECREASED GLUCOSE; Start 07/23/16 at 20:29 Glucagon (Glucagen) 1 mg Q15M PRN IM DECREASED GLUCOSE; Start 07/23/16 at 20:29 Glucose (Glutose) 15 gm Q15M PRN BUCCAL DECREASED GLUCOSE; Start 07/23/16 at 20 :29 Nalbuphine HCl (Nubain) 2.5 mg Q4H PRN IV PRURITUS; Start 07/23/16 at 20:29 Ondansetron HCl (Zofran Inj) 4 mg Q6H PRN IV NAUSEA AND/OR VOMITING; Start at 20:29 Naloxone HCl (Narcan) 0.2 mg Q2M PRN IV FOR RESP RATE 8 OR LESS; Start at 20:29 Morphine Sulfate (morphine) 2 mg Q3H PRN IV PAIN Last administered on 10:09; Admin Dose 2 MG; Start 07/23/16 at 20:29 Diagnostic Test (Pha) (Accucheck) 1 ea 02 XX ; Start 07/23/16 at 20:29 Famotidine (Pepcid) 20 mg DAILY PO Last administered on 07/26/16 08:42; Admin Dose 20 MG; Start 07/23/16 at 20:29 Bethanechol Chloride (Urecholine) 25 mg TID PO Last administered on 07/26/16 12:44; Admin Dose 25 MG; Start 07/23/16 at 20:29 Ferrous Sulfate (Ferrous Sulfate (Ec)) 325 mg TID PO Last administered on 12:44; Admin Dose 325 MG; Start 07/23/16 at 20:29 Acetaminophen/ Hydrocodone Bitart ([place] (5/325)) 1 tab Q4H PRN PO PAIN Last administered on 07/26/16 09:40; Admin Dose 1 TAB; Start 07/23/16 at 21:00 Lisinopril (Zestril) 10 mg BID PO Last administered on 07/26/16 08:41; Admin Dose 10 MG; Start 07/24/16 at 13:00 Hydralazine HCl (Apresoline) 10 mg Q6 PRN IV SBP>170 Last administered on 10:52; Admin Dose 10 MG; Start 07/24/16 at 12:30 Hydrochlorothiazide (Hydrochlorothiazide) 6.25 mg DAILY PO Last administered on 07/26/16 08:44; Admin Dose 6.25 MG; Start 07/24/16 at 16:30 Amlodipine Besylate (Norvasc) 5 mg BID PO Last administered on 07/26/16 08:44 ; Admin Dose 5 MG; Start 07/25/16 at 21:00 ARUNA ANTHONY Jul 26, 2016 15:27
[2016-07-26 19:32] VITALS: BP 144/68; RESP 18
--- NOTE | 2016-07-26 20:47 | RADRPT ---
PROCEDURE: US Lower extremity Venous. CLINICAL INDICATION: Bilateral lower extremity swelling TECHNIQUE: Multiple sonographic images of the bilateral lower extremity deep venous system was obt ained utilizing grayscale, color-flow, compressive sonography and doppler imaging with augmentation. COMPARISON: None. FINDINGS: There is normal compressibility / flow within the bilateral common femoral, femoral and popliteal ve ins. The visualized deep veins of the calf are unremarkable. RPTAT:HJJR IMPRESSION: No sonographic evidence for deep venous thrombosis of either lower extremity. Physician Soo Date Time Electronically viewed and signed by Physician Soo on 07/26/2016 20:46 /
[2016-07-26] MEDS: ENOXAPARIN 40 MG/0.4 ML SYG SC SCH (20:52)
[2016-07-27] MEDS: ACCU-CHEK XX SCH (02:00)
[2016-07-27] MEDS: INSULIN ASPART [NOVOLOG] 3 ML PEN SC SCH ×4 (07:35→20:38)
[2016-07-27 08:00] VITALS: BP 188/88; PULSE 95; RESP 18
[2016-07-27] MEDS: FERROUS SULFATE (EC) 325 MG TAB PO SCH ×3 (08:47→20:31)
[2016-07-27] MEDS: FAMOTIDINE 20 MG TAB PO SCH (08:48)
[2016-07-27] MEDS: HYDROCODONE/APAP (5/325) TAB PO PRN (08:48)
[2016-07-27] MEDS: FUROSEMIDE 40 MG TAB PO SCH (08:48)
[2016-07-27] MEDS: metFORMIN 500 MG TAB PO SCH ×4 (08:48→17:35)
[2016-07-27] MEDS: ASPIRIN (EC) 81 MG TAB PO SCH (08:48)
[2016-07-27] MEDS: LISINOPRIL 5 MG TAB PO SCH (08:48)
[2016-07-27] MEDS: BETHANECHOL 25 MG TAB PO SCH ×3 (08:49→20:31)
[2016-07-27] MEDS: ENOXAPARIN 40 MG/0.4 ML SYG SC SCH (08:52)
--- NOTE | 2016-07-27 12:31 | CONS ---
Date/Time of Note Date/Time of Note DATE: 07/27/16 TIME: 12:25 Assessment/Plan Assessment/Plan Additional Assessment/Plan Hip fracture status post surgical repair Preserved ejection fraction Hypertension, uncontrolled Diabetes Breast cancer Lower extremity edema -Patient's Norvasc has been stopped by primary team, patient with lower extremity edema. Agree with initiation of Lasix and stopping hydrochlorothiazide. Blood pressure elevated today. Would increase dose of lisinopril and add hydralazine standing order if still not well controlled Consultation Date/Type/Reason Admit Date/Time Jul 23, 2016 at 19:40 Type of Consultation: cv 24 HR Interval Summary Free Text/Dictation Patient denies headache or dizziness. Complaining of lower extremity edema Exam/Review of Systems Vital Signs Vitals Vital Signs Date Time Temp Pulse Resp B/P Pulse Ox O2 Delivery O2 Flow Rate FiO2 07/27/16 08:00 100.0 95 18 188/88 97 Room Air Intake and Output 07/26/16 07/26/16 07/27/16 14:59 22:59 06:59 Intake Total 480 ml 440 ml Balance 480 ml 440 ml Exam No apparent distress, sitting in wheelchair Constitutional: alert, oriented Head: normocephalic Neck: supple Respiratory: other (Coarse breath sounds bilaterally, no wheezing) Cardiovascular: other (S1-S2 heard), regular rate and rhythm Gastrointestinal: bowel sounds, non-tender, other (No guarding), soft Extremities: edema (+1), other (No cyanosis) Results Result Diagram: 07/24/16 0615 07/24/16 0615 Results 24 hrs Laboratory Tests Test 07/26/16 17:09 07/26/16 20:36 07/27/16 08:12 Bedside Glucose 109 125 118 Medications Medications Current Medications Acetaminophen (Tylenol Tab) 650 mg Q6H PRN PO PAIN LEVEL 1-3 OR FEVER; Start at 20:29 Aspirin (Halfprin) 81 mg DAILY PO Last administered on 07/27/16t 08:48; Admin Dose 81 MG; Start 07/23/16 at 20:29 Miscellaneous Information 1 ea NOTE XX ; Start 07/23/16 at 20:29 Glucose (Glutose) 15 gm Q15M PRN PO DECREASED GLUCOSE; Start 07/23/16 at 20:29 Glucose (Glutose) 22.5 gm Q15M PRN PO DECREASED GLUCOSE; Start 07/23/16 at 20: 29 Dextrose (D50w Syringe) 25 ml Q15M PRN IV DECREASED GLUCOSE; Start 07/23/16 at 20:29 Dextrose (D50w Syringe) 50 ml Q15M PRN IV DECREASED GLUCOSE; Start 07/23/16 at 20:29 Glucagon (Glucagen) 1 mg Q15M PRN IM DECREASED GLUCOSE; Start 07/23/16 at 20:29 Glucose (Glutose) 15 gm Q15M PRN BUCCAL DECREASED GLUCOSE; Start 07/23/16 at 20 :29 Nalbuphine HCl (Nubain) 2.5 mg Q4H PRN IV PRURITUS; Start 07/23/16 at 20:29 Ondansetron HCl (Zofran Inj) 4 mg Q6H PRN IV NAUSEA AND/OR VOMITING; Start at 20:29 Naloxone HCl (Narcan) 0.2 mg Q2M PRN IV FOR RESP RATE 8 OR LESS; Start at 20:29 Morphine Sulfate (morphine) 2 mg Q3H PRN IV PAIN Last administered on 10:09; Admin Dose 2 MG; Start 07/23/16 at 20:29 Diagnostic Test (Pha) (Accucheck) 1 ea 02 XX ; Start 07/23/16 at 20:29 Famotidine (Pepcid) 20 mg DAILY PO Last administered on 07/27/16 08:48; Admin Dose 20 MG; Start 07/23/16 at 20:29 Bethanechol Chloride (Urecholine) 25 mg TID PO Last administered on 07/27/16 08:49; Admin Dose 25 MG; Start 07/23/16 at 20:29 Ferrous Sulfate (Ferrous Sulfate (Ec)) 325 mg TID PO Last administered on 08:47; Admin Dose 325 MG; Start 07/23/16 at 20:29 Acetaminophen/ Hydrocodone Bitart ([place] (5/325)) 1 tab Q4H PRN PO PAIN Last administered on 07/27/16 08:48; Admin Dose 1 TAB; Start 07/23/16 at 21:00 Lisinopril (Zestril) 10 mg BID PO Last administered on 07/27/16 08:48; Admin Dose 10 MG; Start 07/24/16 at 13:00 Hydralazine HCl (Apresoline) 10 mg Q6 PRN IV SBP>170 Last administered on 10:52; Admin Dose 10 MG; Start 07/24/16 at 12:30 Enoxaparin Sodium (Lovenox) 40 mg DAILY SC Last administered on 07/27/16 08:52 ; Admin Dose 40 MG; Start 07/26/16 at 20:00 Furosemide (Lasix) 40 mg DAILY PO Last administered on 07/27/16 08:48; Admin Dose 40 MG; Start 07/27/16 at 09:00 Jose Hunt DO Jul 27, 2016 12:30
[2016-07-27 12:54] VITALS: BP 166/74; PULSE 90
--- NOTE | 2016-07-27 13:01 | CONS ---
Date/Time of Note Date/Time of Note DATE: 07/27/16 TIME: 13:00 Consult Date/Type/Reason Admit Date/Time Jul 23, 2016 at 19:40 Type of Consultation: cv Subjective comfortable Objective pulm-cta mod assist Vital Signs Date Time Temp Pulse Resp B/P Pulse Ox O2 Delivery O2 Flow Rate FiO2 07/27/16 12:54 90 166/74 07/27/16 08:00 100.0 18 97 Room Air Intake and Output 07/26/16 07/26/16 07/27/16 14:59 22:59 06:59 Intake Total 480 ml 440 ml Balance 480 ml 440 ml Results/Medications Result Diagram: 07/24/1615 07/24/1615 Results 24 hrs Laboratory Tests Test 07/26/16 17:09 07/26/16 20:36 07/27/16 08:12 07/27/16 12:25 Bedside Glucose 109 125 118 128 Medications Current Medications Acetaminophen (Tylenol Tab) 650 mg Q6H PRN PO PAIN LEVEL 1-3 OR FEVER; Start at 20:29 Aspirin (Halfprin) 81 mg DAILY PO Last administered on 07/27/16t 08:48; Admin Dose 81 MG; Start 07/23/16 at 20:29 Miscellaneous Information 1 ea NOTE XX ; Start 07/23/16 at 20:29 Glucose (Glutose) 15 gm Q15M PRN PO DECREASED GLUCOSE; Start 07/23/16 at 20:29 Glucose (Glutose) 22.5 gm Q15M PRN PO DECREASED GLUCOSE; Start 07/23/16 at 20: 29 Dextrose (D50w Syringe) 25 ml Q15M PRN IV DECREASED GLUCOSE; Start 07/23/16 at 20:29 Dextrose (D50w Syringe) 50 ml Q15M PRN IV DECREASED GLUCOSE; Start 07/23/16 at 20:29 Glucagon (Glucagen) 1 mg Q15M PRN IM DECREASED GLUCOSE; Start 07/23/16 at 20:29 Glucose (Glutose) 15 gm Q15M PRN BUCCAL DECREASED GLUCOSE; Start 07/23/16 at 20 :29 Nalbuphine HCl (Nubain) 2.5 mg Q4H PRN IV PRURITUS; Start 07/23/16 at 20:29 Ondansetron HCl (Zofran Inj) 4 mg Q6H PRN IV NAUSEA AND/OR VOMITING; Start at 20:29 Naloxone HCl (Narcan) 0.2 mg Q2M PRN IV FOR RESP RATE 8 OR LESS; Start at 20:29 Morphine Sulfate (morphine) 2 mg Q3H PRN IV PAIN Last administered on 10:09; Admin Dose 2 MG; Start 07/23/16 at 20:29 Diagnostic Test (Pha) (Accucheck) 1 ea 02 XX ; Start 07/23/16 at 20:29 Famotidine (Pepcid) 20 mg DAILY PO Last administered on 07/27/16 08:48; Admin Dose 20 MG; Start 07/23/16 at 20:29 Bethanechol Chloride (Urecholine) 25 mg TID PO Last administered on 07/27/16 12:36; Admin Dose 25 MG; Start 07/23/16 at 20:29 Ferrous Sulfate (Ferrous Sulfate (Ec)) 325 mg TID PO Last administered on 12:36; Admin Dose 325 MG; Start 07/23/16 at 20:29 Acetaminophen/ Hydrocodone Bitart ([place] (5/325)) 1 tab Q4H PRN PO PAIN Last administered on 07/27/16 08:48; Admin Dose 1 TAB; Start 07/23/16 at 21:00 Hydralazine HCl (Apresoline) 10 mg Q6 PRN IV SBP>170 Last administered on 10:52; Admin Dose 10 MG; Start 07/24/16 at 12:30 Enoxaparin Sodium (Lovenox) 40 mg DAILY SC Last administered on 07/27/16 08:52 ; Admin Dose 40 MG; Start 07/26/16 at 20:00 Furosemide (Lasix) 40 mg DAILY PO Last administered on 07/27/16 08:48; Admin Dose 40 MG; Start 07/27/16 at 09:00 Lisinopril (Zestril) 20 mg BID PO ; Start 07/27/16 at 21:00 Hydralazine HCl (Apresoline) 25 mg BID PO Last administered on 07/27/16 12:54 ; Admin Dose 25 MG; Start 07/27/16 at 12:30 Assessment/Plan Additional Assessment/Plan Rehab- Left intertrochanteric hip fracture status post ORIF. Continue rehab program Acute pain syndrome. Hypertension. Uncontrolled diabetes. Left breast carcinoma with history of mastectomy and chemotherapy. NEENA BOYEL MD Jul 27, 2016 13:01
[2016-07-27 17:20] VITALS: BP 188/88; PULSE 90
[2016-07-27] MEDS: hydrALAzine 20 MG INJ IV PRN (17:26)
[2016-07-27 18:30] VITALS: BP 153/70; PULSE 95
[2016-07-27 20:26] VITALS: BP 150/69; RESP 18
--- NOTE | 2016-07-27 20:26 | PN ---
Date/Time of Note Date/Time of Note DATE: 07/27/16 TIME: 20:23 Assessment/Plan VTE Prophylaxis VTE Prophylaxis Intervention: SCD's Lines/Catheters IV Catheter Type (from Nrs): Saline Lock Urinary Cath still in place: No Assessment/Plan Chief Complaint/Hosp Course Assessment/Plan - Intertrochanteric fracture of the left hip. S/p ORIF of the left hip 07/[address] Anderson, orthopedic surgery. Continue PT. continue pain management. - Breast cancer, status post left breast mastectomy and chemotherapy - Diabetes mellitus type 2, continue metformin and NovoLog from mild algorithm sliding scale - Hypertension, continue lisinopril, hydralazine as needed. Dr. Hunt is following in cardiology consultation. Continue to optimize blood pressure medication per cardiology. Further recommendations based on clinical course. Plan of care discussed with Dr. Hinds. Problems: Subjective 24 Hr Interval Summary Free Text/Dictation Patient's continues to be hypertensive, BP medication titrated by cardiology, started on Lasix, monitor electrolytes, continue to monitor blood pressure. Exam/Review of Systems Vital Signs Vitals Vital Signs Date Time Temp Pulse Resp B/P Pulse Ox O2 Delivery O2 Flow Rate FiO2 07/27/16 18:30 95 153/70 07/27/16 08:00 100.0 18 97 Room Air Intake and Output 07/26/16 07/26/16 07/27/16 15:00 23:00 07:00 Intake Total 480 ml 440 ml Balance 480 ml 440 ml Exam Constitutional: alert, oriented, well developed Psych: nl mood/affect, no complaints Head: atraumatic, normocephalic Eyes: nl conjunctiva ENMT: nl external ears & nose, nl lips & teeth Neck: non-tender, supple Respiratory: clear to auscultation, normal air movement Cardiovascular: nl pulses, regular rate and rhythm Gastrointestinal: non-tender, soft Musculoskeletal: nl extremities to inspection, other (Status post left hip ORIF ) Extremities: normal pulses Neurological: [employer] II-XII intact Skin: other (Status post left mastectomy) Results Result Diagram: 07/24/16 0615 07/24/16 0615 Results 24 hrs Laboratory Tests Test 07/26/16 20:36 07/27/16 08:12 07/27/16 12:25 07/27/16 17:18 Bedside Glucose 125 118 128 113 Medications Medications Current Medications Acetaminophen (Tylenol Tab) 650 mg Q6H PRN PO PAIN LEVEL 1-3 OR FEVER; Start at 20:29 Aspirin (Halfprin) 81 mg DAILY PO Last administered on 07/27/16 08:48; Admin Dose 81 MG; Start 07/23/16 at 20:29 Miscellaneous Information 1 ea NOTE XX ; Start 07/23/16 at 20:29 Glucose (Glutose) 15 gm Q15M PRN PO DECREASED GLUCOSE; Start 07/23/16 at 20:29 Glucose (Glutose) 22.5 gm Q15M PRN PO DECREASED GLUCOSE; Start 07/23/16 at 20: 29 Dextrose (D50w Syringe) 25 ml Q15M PRN IV DECREASED GLUCOSE; Start 07/23/16 at 20:29 Dextrose (D50w Syringe) 50 ml Q15M PRN IV DECREASED GLUCOSE; Start 07/23/16 at 20:29 Glucagon (Glucagen) 1 mg Q15M PRN IM DECREASED GLUCOSE; Start 07/23/16 at 20:29 Glucose (Glutose) 15 gm Q15M PRN BUCCAL DECREASED GLUCOSE; Start 07/23/16 at 20 :29 Nalbuphine HCl (Nubain) 2.5 mg Q4H PRN IV PRURITUS; Start 07/23/16 at 20:29 Ondansetron HCl (Zofran Inj) 4 mg Q6H PRN IV NAUSEA AND/OR VOMITING Last administered on 07/27/16 14:57; Admin Dose 4 MG; Start 07/23/16 at 20:29 Naloxone HCl (Narcan) 0.2 mg Q2M PRN IV FOR RESP RATE 8 OR LESS; Start at 20:29 Morphine Sulfate (morphine) 2 mg Q3H PRN IV PAIN Last administered on 10:09; Admin Dose 2 MG; Start 07/23/16 at 20:29 Diagnostic Test (Pha) (Accucheck) 1 ea 02 XX ; Start 07/23/16 at 20:29 Famotidine (Pepcid) 20 mg DAILY PO Last administered on 07/27/16 08:48; Admin Dose 20 MG; Start 07/23/16 at 20:29 Bethanechol Chloride (Urecholine) 25 mg TID PO Last administered on 07/27/16 12:36; Admin Dose 25 MG; Start 07/23/16 at 20:29 Ferrous Sulfate (Ferrous Sulfate (Ec)) 325 mg TID PO Last administered on 12:36; Admin Dose 325 MG; Start 07/23/16 at 20:29 Acetaminophen/ Hydrocodone Bitart ([place] (5/325)) 1 tab Q4H PRN PO PAIN Last administered on 07/27/16 08:48; Admin Dose 1 TAB; Start 07/23/16 at 21:00 Hydralazine HCl (Apresoline) 10 mg Q6 PRN IV SBP>170 Last administered on 17:26; Admin Dose 10 MG; Start 07/24/16 at 12:30 Enoxaparin Sodium (Lovenox) 40 mg DAILY SC Last administered on 07/27/16 08:52 ; Admin Dose 40 MG; Start 07/26/16 at 20:00 Furosemide (Lasix) 40 mg DAILY PO Last administered on 07/27/16 08:48; Admin Dose 40 MG; Start 07/27/16 at 09:00 Lisinopril (Zestril) 20 mg BID PO ; Start 07/27/16 at 21:00 Hydralazine HCl (Apresoline) 25 mg BID PO Last administered on 07/27/16 12:54 ; Admin Dose 25 MG; Start 07/27/16 at 12:30 ERICK PRICE Jul 27, 2016 20:26
[2016-07-27] MEDS: LISINOPRIL 20 MG TAB PO SCH (20:31)
[2016-07-28] MEDS: ACCU-CHEK XX SCH (02:00)
[2016-07-28] MEDS: INSULIN ASPART [NOVOLOG] 3 ML PEN SC SCH ×4 (07:35→20:58)
[2016-07-28 07:53] LABS: POTASSIUM 3.8 mmol/L (3.5-5.1)
[2016-07-28 07:56] LABS: CALCIUM 8.5 mg/dl (8.4-10.2); CREATININE 0.64 mg/dl (0.44-1.00)
--- NOTE | 2016-07-28 08:25 | CONS ---
Date/Time of Note Date/Time of Note DATE: 07/28/16 TIME: 08:25 Consult Date/Type/Reason Admit Date/Time Jul 23, 2016 at 19:40 Type of Consultation: cv Subjective No new complaints Objective pulm-cta max assist Vital Signs Date Time Temp Pulse Resp B/P Pulse Ox O2 Delivery O2 Flow Rate FiO2 07/27/16 20:26 98.7 92 18 150/69 94 07/27/16 08:00 Room Air Intake and Output 07/27/16 07/27/16 07/28/16 15:00 23:00 07:00 Intake Total 920 ml Balance 920 ml Results/Medications Result Diagram: 07/24/16 0615 07/28/16 0655 Results 24 hrs Laboratory Tests Test 07/27/16 12:25 07/27/16 17:18 07/27/16 20:29 07/28/16 06:55 Bedside Glucose 128 113 109 Anion Gap 12 Blood Urea Nitrogen 15 Calcium Level 8.5 Carbon Dioxide Level 31 Chloride Level 97 Creatinine 0.64 Glucose Level 100 Magnesium Level 1.6 L Potassium Level 3.8 Sodium Level 136 Test 07/28/16 07:56 Bedside Glucose 114 Medications Current Medications Acetaminophen (Tylenol Tab) 650 mg Q6H PRN PO PAIN LEVEL 1-3 OR FEVER; Start at 20:29 Aspirin (Halfprin) 81 mg DAILY PO Last administered on 07/27/16t 08:48; Admin Dose 81 MG; Start 07/23/16 at 20:29 Miscellaneous Information 1 ea NOTE XX ; Start 07/23/16 at 20:29 Glucose (Glutose) 15 gm Q15M PRN PO DECREASED GLUCOSE; Start 07/23/16 at 20:29 Glucose (Glutose) 22.5 gm Q15M PRN PO DECREASED GLUCOSE; Start 07/23/16 at 20: 29 Dextrose (D50w Syringe) 25 ml Q15M PRN IV DECREASED GLUCOSE; Start 07/23/16 at 20:29 Dextrose (D50w Syringe) 50 ml Q15M PRN IV DECREASED GLUCOSE; Start 07/23/16 at 20:29 Glucagon (Glucagen) 1 mg Q15M PRN IM DECREASED GLUCOSE; Start 07/23/16 at 20:29 Glucose (Glutose) 15 gm Q15M PRN BUCCAL DECREASED GLUCOSE; Start 07/23/16 at 20 :29 Nalbuphine HCl (Nubain) 2.5 mg Q4H PRN IV PRURITUS; Start 07/23/16 at 20:29 Ondansetron HCl (Zofran Inj) 4 mg Q6H PRN IV NAUSEA AND/OR VOMITING Last administered on 07/27/16 14:57; Admin Dose 4 MG; Start 07/23/16 at 20:29 Naloxone HCl (Narcan) 0.2 mg Q2M PRN IV FOR RESP RATE 8 OR LESS; Start at 20:29 Morphine Sulfate (morphine) 2 mg Q3H PRN IV PAIN Last administered on 10:09; Admin Dose 2 MG; Start 07/23/16 at 20:29 Diagnostic Test (Pha) (Accucheck) 1 ea 02 XX ; Start 07/23/16 at 20:29 Famotidine (Pepcid) 20 mg DAILY PO Last administered on 07/27/16 08:48; Admin Dose 20 MG; Start 07/23/16 at 20:29 Bethanechol Chloride (Urecholine) 25 mg TID PO Last administered on 07/27/16 20:31; Admin Dose 25 MG; Start 07/23/16 at 20:29 Ferrous Sulfate (Ferrous Sulfate (Ec)) 325 mg TID PO Last administered on 20:31; Admin Dose 325 MG; Start 07/23/16 at 20:29 Acetaminophen/ Hydrocodone Bitart ([place] (5/325)) 1 tab Q4H PRN PO PAIN Last administered on 07/27/16 08:48; Admin Dose 1 TAB; Start 07/23/16 at 21:00 Hydralazine HCl (Apresoline) 10 mg Q6 PRN IV SBP>170 Last administered on 17:26; Admin Dose 10 MG; Start 07/24/16 at 12:30 Enoxaparin Sodium (Lovenox) 40 mg DAILY SC Last administered on 07/27/16 08:52 ; Admin Dose 40 MG; Start 07/26/16 at 20:00 Furosemide (Lasix) 40 mg DAILY PO Last administered on 07/27/16 08:48; Admin Dose 40 MG; Start 07/27/16 at 09:00 Lisinopril (Zestril) 20 mg BID PO Last administered on 07/27/16 20:31; Admin Dose 20 MG; Start 07/27/16 at 21:00 Hydralazine HCl (Apresoline) 25 mg BID PO Last administered on 07/27/16 20:31 ; Admin Dose 25 MG; Start 07/27/16 at 12:30 Assessment/Plan Additional Assessment/Plan Rehab- Left intertrochanteric hip fracture status post ORIF. Continue rehab treatment plan Acute pain syndrome- reports patient with less pain complaints Hypertension. Uncontrolled diabetes. Left breast carcinoma with history of mastectomy and chemotherapy. NEENA BOYLE MD Jul 28, 2016 08:25
[2016-07-28 08:50] VITALS: BP 168/75; PULSE 94; RESP 18
[2016-07-28] MEDS: FUROSEMIDE 40 MG TAB PO SCH (08:52)
[2016-07-28] MEDS: metFORMIN 500 MG TAB PO SCH ×3 (08:52→17:36)
[2016-07-28] MEDS: BETHANECHOL 25 MG TAB PO SCH ×3 (08:53→20:58)
[2016-07-28] MEDS: ASPIRIN (EC) 81 MG TAB PO SCH (08:53)
[2016-07-28] MEDS: FERROUS SULFATE (EC) 325 MG TAB PO SCH ×3 (08:53→20:57)
[2016-07-28] MEDS: FAMOTIDINE 20 MG TAB PO SCH (08:53)
[2016-07-28] MEDS: LISINOPRIL 20 MG TAB PO SCH ×2 (08:53→20:58)
[2016-07-28] MEDS: ENOXAPARIN 40 MG/0.4 ML SYG SC SCH (08:55)
--- NOTE | 2016-07-28 13:09 | PN ---
Date/Time of Note Date/Time of Note DATE: 07/28/16 TIME: 13:08 Assessment/Plan VTE Prophylaxis VTE Prophylaxis Intervention: other Lines/Catheters IV Catheter Type (from Nrsg): Saline Lock Urinary Cath still in place: No Assessment/Plan Chief Complaint/Hosp Course - Intertrochanteric fracture of the left hip. S/p ORIF of the left hip 07/[address] Anderson, orthopedic surgery. Continue PT. continue pain management. - Breast cancer, status post left breast mastectomy and chemotherapy - Diabetes mellitus type 2, continue metformin and NovoLog from mild algorithm sliding scale - Hypertension, continue lisinopril, hydralazine as needed. Dr. Hunt is following in cardiology consultation. Continue to optimize blood pressure medication per cardiology. Problems: Subjective 24 Hr Interval Summary Free Text/Dictation Patient not in room, most likely having therapy Exam/Review of Systems Vital Signs Vitals Vital Signs Date Time Temp Pulse Resp B/P Pulse Ox O2 Delivery O2 Flow Rate FiO2 07/28/16 08:50 94 18 168/75 97 Room Air 07/27/16 20:26 98.7 Intake and Output 07/27/16 07/27/16 07/28/16 15:00 23:00 07:00 Intake Total 920 ml Balance 920 ml Exam Unable to examine patient as she is not in room Results Result Diagram: 07/24/16 0615 07/28/16 0655 Results 24 hrs Laboratory Tests Test 07/27/16 17:18 07/27/16 20:29 07/28/16 06:55 07/28/16 07:56 Bedside Glucose 113 109 114 Anion Gap 12 Blood Urea Nitrogen 15 Calcium Level 8.5 Carbon Dioxide Level 31 Chloride Level 97 Creatinine 0.64 Glucose Level 100 Magnesium Level 1.6 L Potassium Level 3.8 Sodium Level 136 Test 07/28/16 11:52 Bedside Glucose 119 Medications Medications Current Medications Acetaminophen (Tylenol Tab) 650 mg Q6H PRN PO PAIN LEVEL 1-3 OR FEVER; Start at 20:29 Aspirin (Halfprin) 81 mg DAILY PO Last administered on 07/28/16t 08:53; Admin Dose 81 MG; Start 07/23/16 at 20:29 Miscellaneous Information 1 ea NOTE XX ; Start 07/23/16 at 20:29 Glucose (Glutose) 15 gm Q15M PRN PO DECREASED GLUCOSE; Start 07/23/16 at 20:29 Glucose (Glutose) 22.5 gm Q15M PRN PO DECREASED GLUCOSE; Start 07/23/16 at 20: 29 Dextrose (D50w Syringe) 25 ml Q15M PRN IV DECREASED GLUCOSE; Start 07/23/16 at 20:29 Dextrose (D50w Syringe) 50 ml Q15M PRN IV DECREASED GLUCOSE; Start 07/23/16 at 20:29 Glucagon (Glucagen) 1 mg Q15M PRN IM DECREASED GLUCOSE; Start 07/23/16 at 20:29 Glucose (Glutose) 15 gm Q15M PRN BUCCAL DECREASED GLUCOSE; Start 07/23/16 at 20 :29 Nalbuphine HCl (Nubain) 2.5 mg Q4H PRN IV PRURITUS; Start 07/23/16 at 20:29 Ondansetron HCl (Zofran Inj) 4 mg Q6H PRN IV NAUSEA AND/OR VOMITING Last administered on 07/27/16 14:57; Admin Dose 4 MG; Start 07/23/16 at 20:29 Naloxone HCl (Narcan) 0.2 mg Q2M PRN IV FOR RESP RATE 8 OR LESS; Start at 20:29 Morphine Sulfate (morphine) 2 mg Q3H PRN IV PAIN Last administered on 10:09; Admin Dose 2 MG; Start 07/23/16 at 20:29 Diagnostic Test (Pha) (Accucheck) 1 ea 02 XX ; Start 07/23/16 at 20:29 Famotidine (Pepcid) 20 mg DAILY PO Last administered on 07/28/16 08:53; Admin Dose 20 MG; Start 07/23/16 at 20:29 Bethanechol Chloride (Urecholine) 25 mg TID PO Last administered on 07/28/16 13:03; Admin Dose 25 MG; Start 07/23/16 at 20:29 Ferrous Sulfate (Ferrous Sulfate (Ec)) 325 mg TID PO Last administered on 13:03; Admin Dose 325 MG; Start 07/23/16 at 20:29 Acetaminophen/ Hydrocodone Bitart ([place] (5/325)) 1 tab Q4H PRN PO PAIN Last administered on 07/27/16 08:48; Admin Dose 1 TAB; Start 07/23/16 at 21:00 Hydralazine HCl (Apresoline) 10 mg Q6 PRN IV SBP>170 Last administered on 17:26; Admin Dose 10 MG; Start 07/24/16 at 12:30 Enoxaparin Sodium (Lovenox) 40 mg DAILY SC Last administered on 07/28/16 08:55 ; Admin Dose 40 MG; Start 07/26/16 at 20:00 Furosemide (Lasix) 40 mg DAILY PO Last administered on 07/28/16 08:52; Admin Dose 40 MG; Start 07/27/16 at 09:00 Lisinopril (Zestril) 20 mg BID PO Last administered on 07/28/16 08:53; Admin Dose 20 MG; Start 07/27/16 at 21:00 Hydralazine HCl (Apresoline) 25 mg BID PO Last administered on 07/28/16 08:53 ; Admin Dose 25 MG; Start 07/27/16 at 12:30 PHUC HUNTER 18, 2017 13:08
[2016-07-28 13:15] VITALS: BP 191/86; PULSE 89; RESP 18
[2016-07-28] MEDS: HYDROCODONE/APAP (5/325) TAB PO PRN (13:18)
[2016-07-28 13:56] VITALS: BP 190/85; PULSE 75; RESP 18
[2016-07-28] MEDS: hydrALAzine 20 MG INJ IV PRN (13:59)
[2016-07-28 14:17] VITALS: BP 174/82; PULSE 89; RESP 18
[2016-07-28 14:22] VITALS: BP 153/72; PULSE 88; RESP 18
[2016-07-28 20:25] VITALS: BP 157/72; RESP 18
[2016-07-29] MEDS: ACCU-CHEK XX SCH (02:00)
[2016-07-29] MEDS: INSULIN ASPART [NOVOLOG] 3 ML PEN SC SCH ×4 (07:35→21:00)
[2016-07-29] MEDS: metFORMIN 500 MG TAB PO SCH ×3 (08:08→18:15)
[2016-07-29] MEDS: FERROUS SULFATE (EC) 325 MG TAB PO SCH ×3 (08:08→21:04)
[2016-07-29] MEDS: LISINOPRIL 20 MG TAB PO SCH ×2 (08:09→21:05)
[2016-07-29] MEDS: FAMOTIDINE 20 MG TAB PO SCH (08:09)
[2016-07-29] MEDS: FUROSEMIDE 40 MG TAB PO SCH (08:09)
[2016-07-29] MEDS: ASPIRIN (EC) 81 MG TAB PO SCH (08:09)
[2016-07-29] MEDS: BETHANECHOL 25 MG TAB PO SCH ×3 (08:09→21:04)
[2016-07-29 08:13] VITALS: BP 196/89; PULSE 89; RESP 20
[2016-07-29] MEDS: ENOXAPARIN 40 MG/0.4 ML SYG SC SCH (08:15)
[2016-07-29 10:17] VITALS: BP 188/82; PULSE 88; RESP 20
--- NOTE | 2016-07-29 12:37 | PN ---
Date/Time of Note Date/Time of Note DATE: 07/29/16 TIME: 12:36 Assessment/Plan VTE Prophylaxis VTE Prophylaxis Intervention: other Lines/Catheters IV Catheter Type (from Nrsg): Saline Lock Urinary Cath still in place: No Assessment/Plan Chief Complaint/Hosp Course - Intertrochanteric fracture of the left hip. S/p ORIF of the left hip 07/[address] Anderson, orthopedic surgery. Continue PT. continue pain management. - Breast cancer, status post left breast mastectomy and chemotherapy - Diabetes mellitus type 2, continue metformin and NovoLog from mild algorithm sliding scale - Hypertension, continue lisinopril, hydralazine as needed. Dr. Hunt is following in cardiology consultation. Continue to optimize blood pressure medication per cardiology. Problems: Subjective 24 Hr Interval Summary Free Text/Dictation Patient doing well, denies any complaints Exam/Review of Systems Vital Signs Vitals Vital Signs Date Time Temp Pulse Resp B/P Pulse Ox O2 Delivery O2 Flow Rate FiO2 07/29/16 10:17 88 20 188/82 95 Room Air 07/29/16 08:13 99.2 Exam Constitutional: well developed Head: atraumatic, normocephalic Neck: supple Respiratory: diminished breath sounds Cardiovascular: regular rate and rhythm Gastrointestinal: non-tender, soft Extremities: normal pulses Results Result Diagram: 07/28/16 0655 Results 24 hrs Laboratory Tests Test 07/28/16 16:56 07/28/16 20:35 07/29/16 07:41 07/29/16 12:12 Bedside Glucose 111 136 105 113 Medications Medications Current Medications Acetaminophen (Tylenol Tab) 650 mg Q6H PRN PO PAIN LEVEL 1-3 OR FEVER; Start at 20:29 Aspirin (Halfprin) 81 mg DAILY PO Last administered on 07/29/16t 08:09; Admin Dose 81 MG; Start 07/23/16 at 20:29 Miscellaneous Information 1 ea NOTE XX ; Start 07/23/16 at 20:29 Glucose (Glutose) 15 gm Q15M PRN PO DECREASED GLUCOSE; Start 07/23/16 at 20:29 Glucose (Glutose) 22.5 gm Q15M PRN PO DECREASED GLUCOSE; Start 07/23/16 at 20: 29 Dextrose (D50w Syringe) 25 ml Q15M PRN IV DECREASED GLUCOSE; Start 07/23/16 at 20:29 Dextrose (D50w Syringe) 50 ml Q15M PRN IV DECREASED GLUCOSE; Start 07/23/16 at 20:29 Glucagon (Glucagen) 1 mg Q15M PRN IM DECREASED GLUCOSE; Start 07/23/16 at 20:29 Glucose (Glutose) 15 gm Q15M PRN BUCCAL DECREASED GLUCOSE; Start 07/23/16 at 20 :29 Nalbuphine HCl (Nubain) 2.5 mg Q4H PRN IV PRURITUS; Start 07/23/16 at 20:29 Ondansetron HCl (Zofran Inj) 4 mg Q6H PRN IV NAUSEA AND/OR VOMITING Last administered on 07/27/16 14:57; Admin Dose 4 MG; Start 07/23/16 at 20:29 Naloxone HCl (Narcan) 0.2 mg Q2M PRN IV FOR RESP RATE 8 OR LESS; Start at 20:29 Morphine Sulfate (morphine) 2 mg Q3H PRN IV PAIN Last administered on 10:09; Admin Dose 2 MG; Start 07/23/16 at 20:29 Diagnostic Test (Pha) (Accucheck) 1 ea 02 XX ; Start 07/23/16 at 20:29 Famotidine (Pepcid) 20 mg DAILY PO Last administered on 07/29/16 08:09; Admin Dose 20 MG; Start 07/23/16 at 20:29 Bethanechol Chloride (Urecholine) 25 mg TID PO Last administered on 07/29/16 08:09; Admin Dose 25 MG; Start 07/23/16 at 20:29 Ferrous Sulfate (Ferrous Sulfate (Ec)) 325 mg TID PO Last administered on 08:08; Admin Dose 325 MG; Start 07/23/16 at 20:29 Acetaminophen/ Hydrocodone Bitart ([place] (5/325)) 1 tab Q4H PRN PO PAIN Last administered on 07/28/16 13:18; Admin Dose 1 TAB; Start 07/23/16 at 21:00 Hydralazine HCl (Apresoline) 10 mg Q6 PRN IV SBP>170 Last administered on 13:59; Admin Dose 10 MG; Start 07/24/16 at 12:30 Enoxaparin Sodium (Lovenox) 40 mg DAILY SC Last administered on 07/29/16 08:15 ; Admin Dose 40 MG; Start 07/26/16 at 20:00 Furosemide (Lasix) 40 mg DAILY PO Last administered on 07/29/16 08:09; Admin Dose 40 MG; Start 07/27/16 at 09:00 Lisinopril (Zestril) 20 mg BID PO Last administered on 07/29/16 08:09; Admin Dose 20 MG; Start 07/27/16 at 21:00 Hydralazine HCl (Apresoline) 25 mg BID PO Last administered on 07/29/16 08:09 ; Admin Dose 25 MG; Start 07/27/16 at 12:30 PHUC HUNTER Jul 29, 2016 12:36
[2016-07-29] MEDS: HYDROCODONE/APAP (5/325) TAB PO PRN (13:33)
[2016-07-29 15:29] VITALS: BP 141/72; PULSE 80; RESP 18
[2016-07-29 19:43] VITALS: BP 179/84; RESP 18
[2016-07-30] MEDS: ACCU-CHEK XX SCH (02:00)
--- NOTE | 2016-07-30 03:42 | HP ---
DATE OF ADMISSION: 07/23/2016 HISTORY OF PRESENT ILLNESS: The patient is a 71-year-old female with past medical history of breast cancer status post breast mastectomy and chemotherapy, diabetes mellitus, and hypertension . The patient sustained a mechanical fall at home and was found to have left hip fracture. The pat ient was evaluated by Dr. Anderson in orthopedic surgery consultation. The patient underwent open reduct ion internal fixation of the left hip on 07/18/2016. The patient was also evaluated by Dr. Gilbert garcia cardiology consult for cardiology clearance prior to procedure. The patient also had hypertension , and blood pressure medications were titrated. The patient's condition improved, and the patient s till had some pain and required further physical therapy and rehabilitation, and the patient was adm itted to acute rehabilitation. PAST MEDICAL HISTORY: Per HPI. PAST SURGICAL HISTORY: Status post left mastectomy, status post PermCath placement for chemotherapy , status post ORIF of the left hip on 07/18/2016. FAMILY HISTORY: Noncontributory. SOCIAL HISTORY: The patient lives at home with her . The patient denies any tobacco use, de nies any illicit drug use, and denies any alcohol use. ALLERGIES: NO KNOWN ALLERGIES. MEDICATIONS ON ADMISSION: 1. Tylenol. 2. Aspirin. 3. Hydralazine. 4. Pepcid. 5. Ferrous sulfate. 6. [place]. 7. NovoLog moderate algorithm sliding scale. 8. Lisinopril. 9. Metformin. 10. Morphine p.r.n. for severe pain. 11. Zofran 12. Metoprolol. REVIEW OF SYSTEMS: A 12-point review of systems is negative unless mentioned in the HPI. PHYSICAL ASSESSMENT: GENERAL: Well-developed, well-nourished female in no acute distress. VITAL SIGNS: Temperature 98.8, blood pressure 158/74, respiratory rate 19, pulse 86, respiratory ra te 97% on room air. HEENT: Head is atraumatic, normocephalic. Pupils equal, round, reactive to light and accommodation . Oral mucosa is pink and moist. NECK: Supple, no cervical lymphadenopathy, no thyromegaly. CHEST: Lungs clear bilaterally. There were no rhonchi, wheezes, or rales. The patient is status p ost left mastectomy. CARDIOVASCULAR: Normal S1, S2. No murmurs, gallops, clicks, or rubs noted. ABDOMEN: Flat, soft, nondistended, nontender. Bowel sounds present. No guarding, no rebound tende rness. EXTREMITIES: There is no edema, clubbing, cyanosis. Pulses equal bilaterally 2+. The patient has a left hip surgical incision that is dry, clean, and intact. SKIN: There is no rash, petechiae noted. NEUROLOGIC: The patient is awake, alert, and oriented x4. No focal deficits noted. LABORATORY DATA: On admission, CBC: White blood cells 4.2, hemoglobin 8.9, hematocrit 26.7, platel ets 393. Chemistry: Sodium is 136, potassium 3.9, chloride 104, carbon dioxide 23, anion gap 15, B UN 14, creatinine 0.62, glucose 108. ASSESSMENT AND PLAN: 1. Intertrochanteric fracture of the left hip, status post open reduction internal fixation of the left hip. Continue physical therapy, continue pain management. 2. Hypertension. Continue lisinopril and hydralazine. Dr. Hunt is asked to follow the patient i n cardiology consultation and optimize blood pressure medication. 3. Diabetes mellitus type 2. Continue metformin and NovoLog per mild algorithm sliding scale. Con tinue 1800 ADA diet. 4. Breast cancer status post left mastectomy. 5. Iron deficiency anemia. Continue iron supplement. 6. Continue Pepcid for peptic ulcer disease prophylaxis. Further recommendations based on clinical course. Plan of care discussed with Dr. Henriquez. Dictated By: ERICK PRICE NEUROPSYCHOLOGY SERVICE DIRECTOR for GENNA HENRIQUEZ MD SR/NTS Conf#: [id number] DID#: [id number]
[2016-07-30] MEDS: hydrALAzine 20 MG INJ IV PRN (06:58)
[2016-07-30 07:30] VITALS: BP 153/70; RESP 18
[2016-07-30] MEDS: INSULIN ASPART [NOVOLOG] 3 ML PEN SC SCH ×4 (07:35→21:00)
[2016-07-30] MEDS: FERROUS SULFATE (EC) 325 MG TAB PO SCH ×3 (09:04→20:58)
[2016-07-30] MEDS: metFORMIN 500 MG TAB PO SCH ×3 (09:04→17:56)
[2016-07-30] MEDS: BETHANECHOL 25 MG TAB PO SCH ×3 (09:04→20:58)
[2016-07-30] MEDS: FAMOTIDINE 20 MG TAB PO SCH (09:04)
[2016-07-30] MEDS: ASPIRIN (EC) 81 MG TAB PO SCH (09:05)
[2016-07-30] MEDS: LISINOPRIL 20 MG TAB PO SCH ×2 (09:05→20:58)
[2016-07-30] MEDS: FUROSEMIDE 40 MG TAB PO SCH (09:05)
[2016-07-30] MEDS: ENOXAPARIN 40 MG/0.4 ML SYG SC SCH (09:06)
[2016-07-30] MEDS: HYDROCODONE/APAP (5/325) TAB PO PRN ×2 (09:16→16:00)
--- NOTE | 2016-07-30 12:02 | CONS ---
Date/Time of Note Date/Time of Note DATE: 07/30/16 TIME: 12:02 Consult Date/Type/Reason Admit Date/Time Jul 23, 2016 at 19:40 Type of Consultation: cv Objective Vital Signs Date Time Temp Pulse Resp B/P Pulse Ox O2 Delivery O2 Flow Rate FiO2 07/29/16 19:43 98.4 88 18 179/84 98 07/29/16 15:29 Room Air Intake and Output 07/29/16 07/29/16 07/30/16 14:59 22:59 06:59 Intake Total 1100 ml 240 ml 240 ml Balance 1100 ml 240 ml 240 ml INTERDISCIPLINARY TEAM CONFERENCE BOWEL- Cont BLADDER-Cont SKIN- intact OT- DRESSING-mod BATHING-mod TOILETING-mod PT- BED MOBILITY-max TRANSFERS-max AMBULATION-max W.C. MOBILITY-min A/P- Interdisciplinary team conference held today. Please see interdisciplinary sheet. Working toward d.c. on 08/07 with post discharge follow up of physical therapy, occupational therapy. Results/Medications Result Diagram: 07/28/16 0655 Results 24 hrs Laboratory Tests Test 07/29/16 12:12 07/29/16 17:12 07/29/16 20:40 07/30/16 07:37 Bedside Glucose 113 149 89 122 Medications Current Medications Acetaminophen (Tylenol Tab) 650 mg Q6H PRN PO PAIN LEVEL 1-3 OR FEVER; Start at 20:29 Aspirin (Halfprin) 81 mg DAILY PO Last administered on 07/30/16t 09:05; Admin Dose 81 MG; Start 07/23/16 at 20:29 Miscellaneous Information 1 ea NOTE XX ; Start 07/23/16 at 20:29 Glucose (Glutose) 15 gm Q15M PRN PO DECREASED GLUCOSE; Start 07/23/16 at 20:29 Glucose (Glutose) 22.5 gm Q15M PRN PO DECREASED GLUCOSE; Start 07/23/16 at 20: 29 Dextrose (D50w Syringe) 25 ml Q15M PRN IV DECREASED GLUCOSE; Start 07/23/16 at 20:29 Dextrose (D50w Syringe) 50 ml Q15M PRN IV DECREASED GLUCOSE; Start 07/23/16 at 20:29 Glucagon (Glucagen) 1 mg Q15M PRN IM DECREASED GLUCOSE; Start 07/23/16 at 20:29 Glucose (Glutose) 15 gm Q15M PRN BUCCAL DECREASED GLUCOSE; Start 07/23/16 at 20 :29 Nalbuphine HCl (Nubain) 2.5 mg Q4H PRN IV PRURITUS; Start 07/23/16 at 20:29 Ondansetron HCl (Zofran Inj) 4 mg Q6H PRN IV NAUSEA AND/OR VOMITING Last administered on 07/27/16 14:57; Admin Dose 4 MG; Start 07/23/16 at 20:29 Naloxone HCl (Narcan) 0.2 mg Q2M PRN IV FOR RESP RATE 8 OR LESS; Start at 20:29 Morphine Sulfate (morphine) 2 mg Q3H PRN IV PAIN Last administered on 10:09; Admin Dose 2 MG; Start 07/23/16 at 20:29 Diagnostic Test (Pha) (Accucheck) 1 ea 02 XX ; Start 07/23/16 at 20:29 Famotidine (Pepcid) 20 mg DAILY PO Last administered on 07/30/16 09:04; Admin Dose 20 MG; Start 07/23/16 at 20:29 Bethanechol Chloride (Urecholine) 25 mg TID PO Last administered on 07/30/16 09:04; Admin Dose 25 MG; Start 07/23/16 at 20:29 Ferrous Sulfate (Ferrous Sulfate (Ec)) 325 mg TID PO Last administered on 09:04; Admin Dose 325 MG; Start 07/23/16 at 20:29 Acetaminophen/ Hydrocodone Bitart ([place] (5/325)) 1 tab Q4H PRN PO PAIN Last administered on 07/30/16 09:16; Admin Dose 1 TAB; Start 07/23/16 at 21:00 Hydralazine HCl (Apresoline) 10 mg Q6 PRN IV SBP>170 Last administered on 06:58; Admin Dose 10 MG; Start 07/24/16 at 12:30 Enoxaparin Sodium (Lovenox) 40 mg DAILY SC Last administered on 07/30/16 09:06 ; Admin Dose 40 MG; Start 07/26/16 at 20:00 Furosemide (Lasix) 40 mg DAILY PO Last administered on 07/30/16 09:05; Admin Dose 40 MG; Start 07/27/16 at 09:00 Lisinopril (Zestril) 20 mg BID PO Last administered on 07/30/16 09:05; Admin Dose 20 MG; Start 07/27/16 at 21:00 Hydralazine HCl (Apresoline) 25 mg BID PO Last administered on 07/30/16 09:04 ; Admin Dose 25 MG; Start 07/27/16 at 12:30 NEENA BOYLE MD Jul 30, 2016 12:02 NEENA BOYLE MD Jul 30, 2016 12:02
--- NOTE | 2016-07-30 13:51 | PN ---
Date/Time of Note Date/Time of Note DATE: 07/30/16 TIME: 13:49 Assessment/Plan VTE Prophylaxis VTE Prophylaxis Intervention: SCD's Lines/Catheters IV Catheter Type (from Nrsg): Saline Lock Urinary Cath still in place: No Assessment/Plan Chief Complaint/Hosp Course Assessment/Plan - Intertrochanteric fracture of the left hip. S/p ORIF of the left hip 07/[address] Anderson, orthopedic surgery. Continue PT. continue pain management. - Breast cancer, status post left breast mastectomy and chemotherapy - Diabetes mellitus type 2, continue metformin and NovoLog from mild algorithm sliding scale - Hypertension, continue lisinopril, hydralazine as needed. Dr. Hunt is following in cardiology consultation. Continue to optimize blood pressure medication per cardiology. Further recommendations based on clinical course. Plan of care discussed with Dr. Hinds. Problems: Subjective 24 Hr Interval Summary Free Text/Dictation Patient's pain is well controlled with [place], patient works with physical therapy, continue current antihypertensive medication, will check BMP and magnesium. Exam/Review of Systems Vital Signs Vitals Vital Signs Date Time Temp Pulse Resp B/P Pulse Ox O2 Delivery O2 Flow Rate FiO2 07/29/16 19:43 98.4 88 18 179/84 98 07/29/16 15:29 Room Air Intake and Output 07/29/16 07/29/16 07/30/16 15:00 23:00 07:00 Intake Total 1100 ml 240 ml 240 ml Balance 1100 ml 240 ml 240 ml Exam Constitutional: alert, oriented, well developed Psych: nl mood/affect, no complaints Head: atraumatic, normocephalic Eyes: nl conjunctiva ENMT: nl external ears & nose, nl lips & teeth Neck: non-tender, supple Respiratory: clear to auscultation, normal air movement Cardiovascular: nl pulses, regular rate and rhythm Gastrointestinal: non-tender, soft Musculoskeletal: nl extremities to inspection, other (Status post left hip ORIF ) Extremities: normal pulses 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 Skin: other (Status post left mastectomy) Results Result Diagram: 07/28/16 0655 Results 24 hrs Laboratory Tests Test 07/29/16 17:12 07/29/16 20:40 07/30/16 07:37 07/30/16 12:01 Bedside Glucose 149 89 122 159 Medications Medications Current Medications Acetaminophen (Tylenol Tab) 650 mg Q6H PRN PO PAIN LEVEL 1-3 OR FEVER; Start at 20:29 Aspirin (Halfprin) 81 mg DAILY PO Last administered on 07/30/16 09:05; Admin Dose 81 MG; Start 07/23/16 at 20:29 Miscellaneous Information 1 ea NOTE XX ; Start 07/23/16 at 20:29 Glucose (Glutose) 15 gm Q15M PRN PO DECREASED GLUCOSE; Start 07/23/16 at 20:29 Glucose (Glutose) 22.5 gm Q15M PRN PO DECREASED GLUCOSE; Start 07/23/16 at 20: 29 Dextrose (D50w Syringe) 25 ml Q15M PRN IV DECREASED GLUCOSE; Start 07/23/16 at 20:29 Dextrose (D50w Syringe) 50 ml Q15M PRN IV DECREASED GLUCOSE; Start 07/23/16 at 20:29 Glucagon (Glucagen) 1 mg Q15M PRN IM DECREASED GLUCOSE; Start 07/23/16 at 20:29 Glucose (Glutose) 15 gm Q15M PRN BUCCAL DECREASED GLUCOSE; Start 07/23/16 at 20 :29 Nalbuphine HCl (Nubain) 2.5 mg Q4H PRN IV PRURITUS; Start 07/23/16 at 20:29 Ondansetron HCl (Zofran Inj) 4 mg Q6H PRN IV NAUSEA AND/OR VOMITING Last administered on 07/27/16 14:57; Admin Dose 4 MG; Start 07/23/16 at 20:29 Naloxone HCl (Narcan) 0.2 mg Q2M PRN IV FOR RESP RATE 8 OR LESS; Start at 20:29 Morphine Sulfate (morphine) 2 mg Q3H PRN IV PAIN Last administered on 10:09; Admin Dose 2 MG; Start 07/23/16 at 20:29 Diagnostic Test (Pha) (Accucheck) 1 ea 02 XX ; Start 07/23/16 at 20:29 Famotidine (Pepcid) 20 mg DAILY PO Last administered on 07/30/16 09:04; Admin Dose 20 MG; Start 07/23/16 at 20:29 Bethanechol Chloride (Urecholine) 25 mg TID PO Last administered on 07/30/16 12:34; Admin Dose 25 MG; Start 07/23/16 at 20:29 Ferrous Sulfate (Ferrous Sulfate (Ec)) 325 mg TID PO Last administered on 12:34; Admin Dose 325 MG; Start 07/23/16 at 20:29 Acetaminophen/ Hydrocodone Bitart ([place] (5/325)) 1 tab Q4H PRN PO PAIN Last administered on 07/30/16 09:16; Admin Dose 1 TAB; Start 07/23/16 at 21:00 Hydralazine HCl (Apresoline) 10 mg Q6 PRN IV SBP>170 Last administered on 06:58; Admin Dose 10 MG; Start 07/24/16 at 12:30 Enoxaparin Sodium (Lovenox) 40 mg DAILY SC Last administered on 07/30/16 09:06 ; Admin Dose 40 MG; Start 07/26/16 at 20:00 Furosemide (Lasix) 40 mg DAILY PO Last administered on 07/30/16 09:05; Admin Dose 40 MG; Start 07/27/16 at 09:00 Lisinopril (Zestril) 20 mg BID PO Last administered on 07/30/16 09:05; Admin Dose 20 MG; Start 07/27/16 at 21:00 Hydralazine HCl (Apresoline) 25 mg BID PO Last administered on 07/30/16 09:04 ; Admin Dose 25 MG; Start 07/27/16 at 12:30 ERICK PRICE Jul 30, 2016 13:51
--- NOTE | 2016-07-30 19:30 | CONS ---
Date/Time of Note Date/Time of Note DATE: 07/30/16 TIME: 19:29 Assessment/Plan Assessment/Plan Additional Assessment/Plan Hip fracture status post surgical repair Preserved ejection fraction Hypertension, uncontrolled Diabetes Breast cancer Lower extremity edema -Blood pressure improved but still elevated, would increase dose of hydralazine. Continue diuretics as blood pressure and renal function permits. Consultation Date/Type/Reason Admit Date/Time Jul 23, 2016 at 19:40 Type of Consultation: cv 24 HR Interval Summary Free Text/Dictation Denies shortness of breath, headache, dizziness or chest pain Exam/Review of Systems Vital Signs Vitals Vital Signs Date Time Temp Pulse Resp B/P Pulse Ox O2 Delivery O2 Flow Rate FiO2 07/30/16 07:30 98.3 95 18 153/70 97 07/29/16 15:29 Room Air Intake and Output 07/29/16 07/29/16 07/30/16 15:00 23:00 07:00 Intake Total 1100 ml 240 ml 240 ml Balance 1100 ml 240 ml 240 ml Exam No apparent distress Constitutional: alert, oriented Head: normocephalic Neck: supple Respiratory: other (Coarse breath sounds bilaterally, no wheezing) Cardiovascular: other (S1-S2 heard), regular rate and rhythm Gastrointestinal: bowel sounds, non-tender, other (No guarding), soft Extremities: edema, other (No cyanosis) Results Result Diagram: 07/28/16 0655 Results 24 hrs Laboratory Tests Test 07/29/16 20:40 07/30/16 07:37 07/30/16 12:01 07/30/16 17:16 Bedside Glucose 89 122 159 137 Medications Medications Current Medications Acetaminophen (Tylenol Tab) 650 mg Q6H PRN PO PAIN LEVEL 1-3 OR FEVER; Start at 20:29 Aspirin (Halfprin) 81 mg DAILY PO Last administered on 07/30/16t 09:05; Admin Dose 81 MG; Start 07/23/16 at 20:29 Miscellaneous Information 1 ea NOTE XX ; Start 07/23/16 at 20:29 Glucose (Glutose) 15 gm Q15M PRN PO DECREASED GLUCOSE; Start 07/23/16 at 20:29 Glucose (Glutose) 22.5 gm Q15M PRN PO DECREASED GLUCOSE; Start 07/23/16 at 20: 29 Dextrose (D50w Syringe) 25 ml Q15M PRN IV DECREASED GLUCOSE; Start 07/23/16 at 20:29 Dextrose (D50w Syringe) 50 ml Q15M PRN IV DECREASED GLUCOSE; Start 07/23/16 at 20:29 Glucagon (Glucagen) 1 mg Q15M PRN IM DECREASED GLUCOSE; Start 07/23/16 at 20:29 Glucose (Glutose) 15 gm Q15M PRN BUCCAL DECREASED GLUCOSE; Start 07/23/16 at 20 :29 Nalbuphine HCl (Nubain) 2.5 mg Q4H PRN IV PRURITUS; Start 07/23/16 at 20:29 Ondansetron HCl (Zofran Inj) 4 mg Q6H PRN IV NAUSEA AND/OR VOMITING Last administered on 07/27/16 14:57; Admin Dose 4 MG; Start 07/23/16 at 20:29 Naloxone HCl (Narcan) 0.2 mg Q2M PRN IV FOR RESP RATE 8 OR LESS; Start at 20:29 Morphine Sulfate (morphine) 2 mg Q3H PRN IV PAIN Last administered on 10:09; Admin Dose 2 MG; Start 07/23/16 at 20:29 Diagnostic Test (Pha) (Accucheck) 1 ea 02 XX ; Start 07/23/16 at 20:29 Famotidine (Pepcid) 20 mg DAILY PO Last administered on 07/30/16 09:04; Admin Dose 20 MG; Start 07/23/16 at 20:29 Bethanechol Chloride (Urecholine) 25 mg TID PO Last administered on 07/30/16 12:34; Admin Dose 25 MG; Start 07/23/16 at 20:29 Ferrous Sulfate (Ferrous Sulfate (Ec)) 325 mg TID PO Last administered on 12:34; Admin Dose 325 MG; Start 07/23/16 at 20:29 Acetaminophen/ Hydrocodone Bitart ([place] (5/325)) 1 tab Q4H PRN PO PAIN Last administered on 07/30/16 16:00; Admin Dose 1 TAB; Start 07/23/16 at 21:00 Hydralazine HCl (Apresoline) 10 mg Q6 PRN IV SBP>170 Last administered on 06:58; Admin Dose 10 MG; Start 07/24/16 at 12:30 Enoxaparin Sodium (Lovenox) 40 mg DAILY SC Last administered on 07/30/16 09:06 ; Admin Dose 40 MG; Start 07/26/16 at 20:00 Furosemide (Lasix) 40 mg DAILY PO Last administered on 07/30/16 09:05; Admin Dose 40 MG; Start 07/27/16 at 09:00 Lisinopril (Zestril) 20 mg BID PO Last administered on 07/30/16 09:05; Admin Dose 20 MG; Start 07/27/16 at 21:00 Hydralazine HCl (Apresoline) 25 mg BID PO Last administered on 07/30/16 09:04 ; Admin Dose 25 MG; Start 07/27/16 at 12:30 Jose Hunt DO Jul 30, 2016 19:30
[2016-07-30 19:49] VITALS: BP 163/77; RESP 20
[2016-07-31] MEDS: ACCU-CHEK XX SCH ×2 (02:00→02:12)
[2016-07-31 07:00] VITALS: BP 198/96; RESP 18
[2016-07-31 07:14] LABS: POTASSIUM 3.7 mmol/L (3.5-5.1)
[2016-07-31 07:16] LABS: CREATININE 0.69 mg/dl (0.44-1.00)
[2016-07-31 07:17] LABS: CALCIUM 8.8 mg/dl (8.4-10.2); MAGNESIUM 1.6 mg/dl (1.7-2.5)
[2016-07-31] MEDS: INSULIN ASPART [NOVOLOG] 3 ML PEN SC SCH ×4 (07:35→21:00)
[2016-07-31] MEDS: HYDROCODONE/APAP (5/325) TAB PO PRN ×3 (08:02→20:11)
[2016-07-31] MEDS: FUROSEMIDE 40 MG TAB PO SCH (08:58)
[2016-07-31] MEDS: FAMOTIDINE 20 MG TAB PO SCH (08:59)
[2016-07-31] MEDS: metFORMIN 500 MG TAB PO SCH ×3 (08:59→17:54)
[2016-07-31] MEDS: FERROUS SULFATE (EC) 325 MG TAB PO SCH ×3 (08:59→20:07)
[2016-07-31] MEDS: ENOXAPARIN 40 MG/0.4 ML SYG SC SCH (08:59)
[2016-07-31] MEDS: BETHANECHOL 25 MG TAB PO SCH ×3 (08:59→20:07)
[2016-07-31] MEDS: ASPIRIN (EC) 81 MG TAB PO SCH (08:59)
[2016-07-31] MEDS: LISINOPRIL 20 MG TAB PO SCH ×2 (09:01→20:08)
[2016-07-31 10:07] VITALS: BP 112/54; PULSE 92
--- NOTE | 2016-07-31 12:10 | PN ---
Date/Time of Note Date/Time of Note DATE: 07/31/16 TIME: 12:08 Assessment/Plan VTE Prophylaxis VTE Prophylaxis Intervention: SCD's Lines/Catheters IV Catheter Type (from Nrs): Saline Lock Urinary Cath still in place: No Assessment/Plan Chief Complaint/Hosp Course Assessment/Plan - Intertrochanteric fracture of the left hip. S/p ORIF of the left hip 07/[address] Anderson, orthopedic surgery. Continue PT. continue pain management. - Breast cancer, status post left breast mastectomy and chemotherapy - Diabetes mellitus type 2, continue metformin and NovoLog from mild algorithm sliding scale - Hypertension, continue lisinopril, hydralazine as needed. Dr. Hunt is following in cardiology consultation. Continue to optimize blood pressure medication per cardiology. Further recommendations based on clinical course. Plan of care discussed with Dr. Hinds. Problems: Subjective 24 Hr Interval Summary Free Text/Dictation Patient works with PT, continues to have pain, premedicated for PT, remains afebrile. Mag replaced. Exam/Review of Systems Vital Signs Vitals Vital Signs Date Time Temp Pulse Resp B/P Pulse Ox O2 Delivery O2 Flow Rate FiO2 07/31/16 10:07 92 112/54 07/31/16 07:00 98.3 18 96 07/29/16 15:29 Room Air Intake and Output 07/30/16 07/30/16 07/31/16 15:00 23:00 07:00 Intake Total 420 ml Output Total 1 ml Balance 419 ml Exam Constitutional: alert, oriented, well developed Psych: nl mood/affect, no complaints Head: atraumatic, normocephalic Eyes: nl conjunctiva ENMT: nl external ears & nose, nl lips & teeth Neck: non-tender, supple Respiratory: clear to auscultation, normal air movement Cardiovascular: nl pulses, regular rate and rhythm Gastrointestinal: non-tender, soft Musculoskeletal: nl extremities to inspection, other (Status post left hip ORIF ) Extremities: normal pulses 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 Skin: other (Status post left mastectomy) Results Result Diagram: 07/31/16 0613 Results 24 hrs Laboratory Tests Test 07/30/16 17:16 07/30/16 20:46 07/31/16 06:13 07/31/16 07:32 Bedside Glucose 137 121 120 Anion Gap 14 Blood Urea Nitrogen 23 H Calcium Level 8.8 Carbon Dioxide Level 33 H Chloride Level 95 L Creatinine 0.69 Glucose Level 107 Magnesium Level 1.6 L Potassium Level 3.7 Sodium Level 138 Test 07/31/16 11:49 Bedside Glucose 96 Medications Medications Current Medications Acetaminophen (Tylenol Tab) 650 mg Q6H PRN PO PAIN LEVEL 1-3 OR FEVER Last administered on 07/31/16 09:30; Admin Dose 650 MG; Start 07/23/16 at 20:29 Aspirin (Halfprin) 81 mg DAILY PO Last administered on 07/31/16 08:59; Admin Dose 81 MG; Start 07/23/16 at 20:29 Miscellaneous Information 1 ea NOTE XX ; Start 07/23/16 at 20:29 Glucose (Glutose) 15 gm Q15M PRN PO DECREASED GLUCOSE; Start 07/23/16 at 20:29 Glucose (Glutose) 22.5 gm Q15M PRN PO DECREASED GLUCOSE; Start 07/23/16 at 20: 29 Dextrose (D50w Syringe) 25 ml Q15M PRN IV DECREASED GLUCOSE; Start 07/23/16 at 20:29 Dextrose (D50w Syringe) 50 ml Q15M PRN IV DECREASED GLUCOSE; Start 07/23/16 at 20:29 Glucagon (Glucagen) 1 mg Q15M PRN IM DECREASED GLUCOSE; Start 07/23/16 at 20:29 Glucose (Glutose) 15 gm Q15M PRN BUCCAL DECREASED GLUCOSE; Start 07/23/16 at 20 :29 Nalbuphine HCl (Nubain) 2.5 mg Q4H PRN IV PRURITUS; Start 07/23/16 at 20:29 Ondansetron HCl (Zofran Inj) 4 mg Q6H PRN IV NAUSEA AND/OR VOMITING Last administered on 07/27/16 14:57; Admin Dose 4 MG; Start 07/23/16 at 20:29 Naloxone HCl (Narcan) 0.2 mg Q2M PRN IV FOR RESP RATE 8 OR LESS; Start at 20:29 Morphine Sulfate (morphine) 2 mg Q3H PRN IV PAIN Last administered on 10:09; Admin Dose 2 MG; Start 07/23/16 at 20:29 Diagnostic Test (Pha) (Accucheck) 1 ea 02 XX ; Start 07/23/16 at 20:29 Famotidine (Pepcid) 20 mg DAILY PO Last administered on 07/31/16 08:59; Admin Dose 20 MG; Start 07/23/16 at 20:29 Bethanechol Chloride (Urecholine) 25 mg TID PO Last administered on 07/31/16 08:59; Admin Dose 25 MG; Start 07/23/16 at 20:29 Ferrous Sulfate (Ferrous Sulfate (Ec)) 325 mg TID PO Last administered on 08:59; Admin Dose 325 MG; Start 07/23/16 at 20:29 Acetaminophen/ Hydrocodone Bitart ([place] (5/325)) 1 tab Q4H PRN PO PAIN Last administered on 07/31/16 11:22; Admin Dose 1 TAB; Start 07/23/16 at 21:00 Hydralazine HCl (Apresoline) 10 mg Q6 PRN IV SBP>170 Last administered on 06:58; Admin Dose 10 MG; Start 07/24/16 at 12:30 Enoxaparin Sodium (Lovenox) 40 mg DAILY SC Last administered on 07/31/16 08:59 ; Admin Dose 40 MG; Start 07/26/16 at 20:00 Furosemide (Lasix) 40 mg DAILY PO Last administered on 07/31/16 08:58; Admin Dose 40 MG; Start 07/27/16 at 09:00 Lisinopril (Zestril) 20 mg BID PO Last administered on 07/31/16 09:01; Admin Dose 20 MG; Start 07/27/16 at 21:00 Hydralazine HCl (Apresoline) 50 mg BID PO Last administered on 07/31/16 08:02 ; Admin Dose 50 MG; Start 07/30/16 at 21:00 ERICK PRICE Jul 31, 2016 12:09
--- NOTE | 2016-07-31 12:18 | CONS ---
Date/Time of Note Date/Time of Note DATE: 07/31/16 TIME: 12:17 Consult Date/Type/Reason Admit Date/Time Jul 23, 2016 at 19:40 Type of Consultation: cv Subjective doing well Objective pulm-cta max assist transfer Vital Signs Date Time Temp Pulse Resp B/P Pulse Ox O2 Delivery O2 Flow Rate FiO2 07/31/16 10:07 92 112/54 07/31/16 07:00 98.3 18 96 07/29/16 15:29 Room Air Intake and Output 07/30/16 07/30/16 07/31/16 15:00 23:00 07:00 Intake Total 420 ml Output Total 1 ml Balance 419 ml Results/Medications Result Diagram: 07/31/16612 Results 24 hrs Laboratory Tests Test 07/30/16 17:16 07/30/16 20:46 07/31/16 06:13 07/31/16 07:32 Bedside Glucose 137 121 120 Anion Gap 14 Blood Urea Nitrogen 23 H Calcium Level 8.8 Carbon Dioxide Level 33 H Chloride Level 95 L Creatinine 0.69 Glucose Level 107 Magnesium Level 1.6 L Potassium Level 3.7 Sodium Level 138 Test 07/31/16 11:49 Bedside Glucose 96 Medications Current Medications Acetaminophen (Tylenol Tab) 650 mg Q6H PRN PO PAIN LEVEL 1-3 OR FEVER Last administered on 07/31/16 09:30; Admin Dose 650 MG; Start 07/23/16 at 20:29 Aspirin (Halfprin) 81 mg DAILY PO Last administered on 07/31/16 08:59; Admin Dose 81 MG; Start 07/23/16 at 20:29 Miscellaneous Information 1 ea NOTE XX ; Start 07/23/16 at 20:29 Glucose (Glutose) 15 gm Q15M PRN PO DECREASED GLUCOSE; Start 07/23/16 at 20:29 Glucose (Glutose) 22.5 gm Q15M PRN PO DECREASED GLUCOSE; Start 07/23/16 at 20: 29 Dextrose (D50w Syringe) 25 ml Q15M PRN IV DECREASED GLUCOSE; Start 07/23/16 at 20:29 Dextrose (D50w Syringe) 50 ml Q15M PRN IV DECREASED GLUCOSE; Start 07/23/16 at 20:29 Glucagon (Glucagen) 1 mg Q15M PRN IM DECREASED GLUCOSE; Start 07/23/16 at 20:29 Glucose (Glutose) 15 gm Q15M PRN BUCCAL DECREASED GLUCOSE; Start 07/23/16 at 20 :29 Nalbuphine HCl (Nubain) 2.5 mg Q4H PRN IV PRURITUS; Start 07/23/16 at 20:29 Ondansetron HCl (Zofran Inj) 4 mg Q6H PRN IV NAUSEA AND/OR VOMITING Last administered on 07/27/16 14:57; Admin Dose 4 MG; Start 07/23/16 at 20:29 Naloxone HCl (Narcan) 0.2 mg Q2M PRN IV FOR RESP RATE 8 OR LESS; Start at 20:29 Morphine Sulfate (morphine) 2 mg Q3H PRN IV PAIN Last administered on 10:09; Admin Dose 2 MG; Start 07/23/16 at 20:29 Diagnostic Test (Pha) (Accucheck) 1 ea 02 XX ; Start 07/23/16 at 20:29 Famotidine (Pepcid) 20 mg DAILY PO Last administered on 07/31/16 08:59; Admin Dose 20 MG; Start 07/23/16 at 20:29 Bethanechol Chloride (Urecholine) 25 mg TID PO Last administered on 07/31/16 08:59; Admin Dose 25 MG; Start 07/23/16 at 20:29 Ferrous Sulfate (Ferrous Sulfate (Ec)) 325 mg TID PO Last administered on 08:59; Admin Dose 325 MG; Start 07/23/16 at 20:29 Acetaminophen/ Hydrocodone Bitart ([place] (5/325)) 1 tab Q4H PRN PO PAIN Last administered on 07/31/16 11:22; Admin Dose 1 TAB; Start 07/23/16 at 21:00 Hydralazine HCl (Apresoline) 10 mg Q6 PRN IV SBP>170 Last administered on 06:58; Admin Dose 10 MG; Start 07/24/16 at 12:30 Enoxaparin Sodium (Lovenox) 40 mg DAILY SC Last administered on 07/31/16 08:59 ; Admin Dose 40 MG; Start 07/26/16 at 20:00 Furosemide (Lasix) 40 mg DAILY PO Last administered on 07/31/16 08:58; Admin Dose 40 MG; Start 07/27/16 at 09:00 Lisinopril (Zestril) 20 mg BID PO Last administered on 07/31/16 09:01; Admin Dose 20 MG; Start 07/27/16 at 21:00 Hydralazine HCl 50 mg 50 mg BID PO Last administered on 07/31/16 08:02; Admin Dose 50 MG; Start 07/30/16 at 21:00 Magnesium Sulfate (Magnesium Sulfate 2 Gm/50 ml) 50 ml @ 25 mls/hr ONCE ONCE IVPB ; Start 07/31/16 at 13:30; Stop 07/31/16 at 15:29 Assessment/Plan Additional Assessment/Plan Rehab- Left intertrochanteric hip fracture status post ORIF. Continue rehab program Acute pain syndrome-improving , with improving activity tolerance Hypertension. Uncontrolled diabetes. Left breast carcinoma with history of mastectomy and chemotherapy. NEENA BOYLE MD Jul 31, 2016 12:18
[2016-07-31] MEDS ORDERED: MAGNESIUM SULFATE 2 GM/50 ML 50 ML IVPB ONE (13:30)
--- NOTE | 2016-07-31 17:56 | CONS ---
Date/Time of Note Date/Time of Note DATE: 07/31/16 TIME: 17:54 Assessment/Plan Assessment/Plan Additional Assessment/Plan Hip fracture status post surgical repair Preserved ejection fraction Hypertension, improved Diabetes Breast cancer Lower extremity edema -Blood pressure trend overall improved with episode of hypertension this morning. Would continue to follow trend and continue current CV medication regimen. Magnesium supplementation has already been ordered. Consultation Date/Type/Reason Admit Date/Time Jul 23, 2016 at 19:40 Type of Consultation: cv 24 HR Interval Summary Free Text/Dictation Denies shortness of breath, chest pain, headache or palpitation Exam/Review of Systems Vital Signs Vitals Vital Signs Date Time Temp Pulse Resp B/P Pulse Ox O2 Delivery O2 Flow Rate FiO2 07/31/16 10:07 92 112/54 07/31/16 07:00 98.3 18 96 07/29/16 15:29 Room Air Intake and Output 07/30/16 07/30/16 07/31/16 15:00 23:00 07:00 Intake Total 420 ml Output Total 1 ml Balance 419 ml Exam No apparent distress Constitutional: alert, oriented Head: normocephalic Neck: supple Respiratory: other (Coarse breath sounds bilaterally, no wheezing) Cardiovascular: other (S1-S2 heard), regular rate and rhythm Gastrointestinal: bowel sounds, non-tender, other (No guarding), soft Extremities: edema (Trace), other (No cyanosis) Results Result Diagram: 07/31/16 0613 Results 24 hrs Laboratory Tests Test 07/30/16 20:46 07/31/16 06:13 07/31/16 07:32 07/31/16 11:49 Bedside Glucose 121 120 96 Anion Gap 14 Blood Urea Nitrogen 23 H Calcium Level 8.8 Carbon Dioxide Level 33 H Chloride Level 95 L Creatinine 0.69 Glucose Level 107 Magnesium Level 1.6 L Potassium Level 3.7 Sodium Level 138 Test 07/31/16 17:11 Bedside Glucose 101 Medications Medications Current Medications Acetaminophen (Tylenol Tab) 650 mg Q6H PRN PO PAIN LEVEL 1-3 OR FEVER Last administered on 07/31/16 09:30; Admin Dose 650 MG; Start 07/23/16 at 20:29 Aspirin (Halfprin) 81 mg DAILY PO Last administered on 07/31/16 08:59; Admin Dose 81 MG; Start 07/23/16 at 20:29 Miscellaneous Information 1 ea NOTE XX ; Start 07/23/16 at 20:29 Glucose (Glutose) 15 gm Q15M PRN PO DECREASED GLUCOSE; Start 07/23/16 at 20:29 Glucose (Glutose) 22.5 gm Q15M PRN PO DECREASED GLUCOSE; Start 07/23/16 at 20: 29 Dextrose (D50w Syringe) 25 ml Q15M PRN IV DECREASED GLUCOSE; Start 07/23/16 at 20:29 Dextrose (D50w Syringe) 50 ml Q15M PRN IV DECREASED GLUCOSE; Start 07/23/16 at 20:29 Glucagon (Glucagen) 1 mg Q15M PRN IM DECREASED GLUCOSE; Start 07/23/16 at 20:29 Glucose (Glutose) 15 gm Q15M PRN BUCCAL DECREASED GLUCOSE; Start 07/23/16 at 20 :29 Nalbuphine HCl (Nubain) 2.5 mg Q4H PRN IV PRURITUS; Start 07/23/16 at 20:29 Ondansetron HCl (Zofran Inj) 4 mg Q6H PRN IV NAUSEA AND/OR VOMITING Last administered on 07/27/16 14:57; Admin Dose 4 MG; Start 07/23/16 at 20:29 Naloxone HCl (Narcan) 0.2 mg Q2M PRN IV FOR RESP RATE 8 OR LESS; Start at 20:29 Morphine Sulfate (morphine) 2 mg Q3H PRN IV PAIN Last administered on 10:09; Admin Dose 2 MG; Start 07/23/16 at 20:29 Diagnostic Test (Pha) (Accucheck) 1 ea 02 XX ; Start 07/23/16 at 20:29 Famotidine (Pepcid) 20 mg DAILY PO Last administered on 07/31/16 08:59; Admin Dose 20 MG; Start 07/23/16 at 20:29 Bethanechol Chloride (Urecholine) 25 mg TID PO Last administered on 07/31/16 14:19; Admin Dose 25 MG; Start 07/23/16 at 20:29 Ferrous Sulfate (Ferrous Sulfate (Ec)) 325 mg TID PO Last administered on 14:19; Admin Dose 325 MG; Start 07/23/16 at 20:29 Acetaminophen/ Hydrocodone Bitart ([place] (5/325)) 1 tab Q4H PRN PO PAIN Last administered on 07/31/16 11:22; Admin Dose 1 TAB; Start 07/23/16 at 21:00 Hydralazine HCl (Apresoline) 10 mg Q6 PRN IV SBP>170 Last administered on 06:58; Admin Dose 10 MG; Start 07/24/16 at 12:30 Enoxaparin Sodium (Lovenox) 40 mg DAILY SC Last administered on 07/31/16 08:59 ; Admin Dose 40 MG; Start 07/26/16 at 20:00 Furosemide (Lasix) 40 mg DAILY PO Last administered on 07/31/16 08:58; Admin Dose 40 MG; Start 07/27/16 at 09:00 Lisinopril (Zestril) 20 mg BID PO Last administered on 07/31/16 09:01; Admin Dose 20 MG; Start 07/27/16 at 21:00 Hydralazine HCl (Apresoline) 50 mg BID PO Last administered on 07/31/16 08:02 ; Admin Dose 50 MG; Start 07/30/16 at 21:00 Jose Hunt DO Jul 31, 2016 17:56
[2016-07-31 20:00] VITALS: BP 172/81; RESP 18
[2016-07-31 23:50] VITALS: BP 148/67; PULSE 82
[2016-08-01] MEDS: ACCU-CHEK XX SCH (02:00)
[2016-08-01 07:30] VITALS: BP 174/74; RESP 18
[2016-08-01] MEDS: INSULIN ASPART [NOVOLOG] 3 ML PEN SC SCH ×4 (07:35→20:50)
[2016-08-01] MEDS: metFORMIN 500 MG TAB PO SCH ×3 (08:24→17:55)
[2016-08-01] MEDS: BETHANECHOL 25 MG TAB PO SCH ×3 (08:25→20:50)
[2016-08-01] MEDS: HYDROCODONE/APAP (5/325) TAB PO PRN ×2 (08:25→17:26)
[2016-08-01] MEDS: FAMOTIDINE 20 MG TAB PO SCH (08:25)
[2016-08-01] MEDS: ASPIRIN (EC) 81 MG TAB PO SCH (08:25)
[2016-08-01] MEDS: FERROUS SULFATE (EC) 325 MG TAB PO SCH ×3 (08:26→20:50)
[2016-08-01] MEDS: LISINOPRIL 20 MG TAB PO SCH ×2 (08:26→20:50)
[2016-08-01] MEDS: FUROSEMIDE 40 MG TAB PO SCH (08:26)
[2016-08-01] MEDS: ENOXAPARIN 40 MG/0.4 ML SYG SC SCH (08:27)
--- NOTE | 2016-08-01 12:20 | CONS ---
Date/Time of Note Date/Time of Note DATE: 08/01/16 TIME: 12:20 Consult Date/Type/Reason Admit Date/Time Jul 23, 2016 at 19:40 Type of Consultation: cv Subjective No new complaints Objective pulm- cta abd- soft cga wheelchair mobility Vital Signs Date Time Temp Pulse Resp B/P Pulse Ox O2 Delivery O2 Flow Rate FiO2 07/31/16 23:50 82 148/67 07/31/16 20:00 98.4 18 99 07/29/16 15:29 Room Air Intake and Output 07/31/16 07/31/16 08/01/16 15:00 23:00 07:00 Intake Total 630 ml 290 ml 200 ml Output Total 200 ml 200 ml Balance 430 ml 90 ml 200 ml Results/Medications Result Diagram: 07/31/16612 Results 24 hrs Laboratory Tests Test 07/31/16 17:11 07/31/16 20:22 08/01/16 07:37 08/01/16 11:53 Bedside Glucose 101 122 107 107 Medications Current Medications Acetaminophen (Tylenol Tab) 650 mg Q6H PRN PO PAIN LEVEL 1-3 OR FEVER Last administered on 07/31/16 09:30; Admin Dose 650 MG; Start 07/23/16 at 20:29 Aspirin (Halfprin) 81 mg DAILY PO Last administered on 08/01/16 08:25; Admin Dose 81 MG; Start 07/23/16 at 20:29 Miscellaneous Information 1 ea NOTE XX ; Start 07/23/16 at 20:29 Glucose (Glutose) 15 gm Q15M PRN PO DECREASED GLUCOSE; Start 07/23/16 at 20:29 Glucose (Glutose) 22.5 gm Q15M PRN PO DECREASED GLUCOSE; Start 07/23/16 at 20: 29 Dextrose (D50w Syringe) 25 ml Q15M PRN IV DECREASED GLUCOSE; Start 07/23/16 at 20:29 Dextrose (D50w Syringe) 50 ml Q15M PRN IV DECREASED GLUCOSE; Start 07/23/16 at 20:29 Glucagon (Glucagen) 1 mg Q15M PRN IM DECREASED GLUCOSE; Start 07/23/16 at 20:29 Glucose (Glutose) 15 gm Q15M PRN BUCCAL DECREASED GLUCOSE; Start 07/23/16 at 20 :29 Nalbuphine HCl (Nubain) 2.5 mg Q4H PRN IV PRURITUS; Start 07/23/16 at 20:29 Ondansetron HCl (Zofran Inj) 4 mg Q6H PRN IV NAUSEA AND/OR VOMITING Last administered on 07/27/16 14:57; Admin Dose 4 MG; Start 07/23/16 at 20:29 Naloxone HCl (Narcan) 0.2 mg Q2M PRN IV FOR RESP RATE 8 OR LESS; Start at 20:29 Morphine Sulfate (morphine) 2 mg Q3H PRN IV PAIN Last administered on 10:09; Admin Dose 2 MG; Start 07/23/16 at 20:29 Diagnostic Test (Pha) (Accucheck) 1 ea 02 XX ; Start 07/23/16 at 20:29 Famotidine (Pepcid) 20 mg DAILY PO Last administered on 08/01/16 08:25; Admin Dose 20 MG; Start 07/23/16 at 20:29 Bethanechol Chloride (Urecholine) 25 mg TID PO Last administered on 08/01/16 08:25; Admin Dose 25 MG; Start 07/23/16 at 20:29 Ferrous Sulfate (Ferrous Sulfate (Ec)) 325 mg TID PO Last administered on 08:26; Admin Dose 325 MG; Start 07/23/16 at 20:29 Acetaminophen/ Hydrocodone Bitart ([place] (5/325)) 1 tab Q4H PRN PO PAIN Last administered on 08/01/16 08:25; Admin Dose 1 TAB; Start 07/23/16 at 21:00 Hydralazine HCl (Apresoline) 10 mg Q6 PRN IV SBP>170 Last administered on 06:58; Admin Dose 10 MG; Start 07/24/16 at 12:30 Enoxaparin Sodium (Lovenox) 40 mg DAILY SC Last administered on 08/01/16 08:27 ; Admin Dose 40 MG; Start 07/26/16 at 20:00 Furosemide (Lasix) 40 mg DAILY PO Last administered on 08/01/16 08:26; Admin Dose 40 MG; Start 07/27/16 at 09:00 Lisinopril (Zestril) 20 mg BID PO Last administered on 08/01/16 08:26; Admin Dose 20 MG; Start 07/27/16 at 21:00 Hydralazine HCl (Apresoline) 50 mg BID PO Last administered on 08/01/16t 08:26 ; Admin Dose 50 MG; Start 07/30/16 at 21:00 Assessment/Plan Additional Assessment/Plan Rehab- Left intertrochanteric hip fracture status post ORIF. Increase activities as tolerated Acute pain syndrome-better Hypertension. diabetes. Left breast carcinoma with history of mastectomy and chemotherapy NEENA BOYLE MD Aug 01, 2016 12:20
--- NOTE | 2016-08-01 19:03 | PN ---
ERICK PRICE 08/01/16 1903: Date/Time of Note Date/Time of Note DATE: 08/01/16 TIME: 19:02 Assessment/Plan VTE Prophylaxis VTE Prophylaxis Intervention: SCD's Lines/Catheters IV C[facility]from [facility] [facility] Urinary Cath still in place: No Assessment/Plan Chief Complaint/Hosp Course Assessment/Plan - Intertrochanteric fracture of the left hip. S/p ORIF of the left hip 07/[address] Anderson, orthopedic surgery. Continue PT. continue pain management. - Breast cancer, status post left breast mastectomy and chemotherapy - Diabetes mellitus type 2, continue metformin and NovoLog from mild algorithm sliding scale - Hypertension, continue lisinopril, hydralazine as needed. Dr. Hunt is following in cardiology consultation. Continue to optimize blood pressure medication per cardiology. Further recommendations based on clinical course. Plan of care discussed with Dr. Hinds. Problems: Subjective 24 Hr Interval Summary Free Text/Dictation Patient's continues to work with physical therapy, complains of intermittent pain, controlled with medication, darlyn removed by nursing. Exam/Review of Systems Vital Signs Vitals Vital Signs Date Time Temp Pulse Resp B/P Pulse Ox O2 Delivery O2 Flow Rate FiO2 08/01/16 07:30 98.4 89 18 174/74 100 07/29/16 15:29 Room Air Intake and Output 07/31/16 07/31/16 08/01/16 15:00 23:00 07:00 Intake Total 630 ml 290 ml 200 ml Output Total 200 ml 200 ml Balance 430 ml 90 ml 200 ml Exam PHYSICAL ASSESSMENT: GENERAL: Well-developed, obese gentleman. Currently, he is awake, alert, in no acute distress. HEENT: Head is atraumatic, normocephalic. PERRLA. NECK: Supple. No cervical lymphadenopathy, no thyromegaly. CHEST: Lungs clear, both slightly diminished at the bases. There are no rhonchi, wheezes noted. CARDIOVASCULAR: Normal S1, S2. No murmurs, gallops, clicks, rubs noted. ABDOMEN: Protuberant, soft, nondistended, nontender. Bowel sounds present. EXTREMITIES: The patient has mild edema, 1+. No clubbing, no cyanosis. Pulses equal bilaterally 2+. SKIN: There is no rash, petechiae noted. NEUROLOGIC: The patient is awake, alert, and oriented x4 Results Result Diagram: 07/31/16 0613 Results 24 hrs Laboratory Tests Test 07/31/16 20:22 08/01/16 07:37 08/01/16 11:53 08/01/16 17:40 Bedside Glucose 122 107 107 116 Medications Medications Current Medications Acetaminophen (Tylenol Tab) 650 mg Q6H PRN PO PAIN LEVEL 1-3 OR FEVER Last administered on 07/31/16 09:30; Admin Dose 650 MG; Start 07/23/16 at 20:29 Aspirin (Halfprin) 81 mg DAILY PO Last administered on 08/01/16 08:25; Admin Dose 81 MG; Start 07/23/16 at 20:29 Miscellaneous Information 1 ea NOTE XX ; Start 07/23/16 at 20:29 Glucose (Glutose) 15 gm Q15M PRN PO DECREASED GLUCOSE; Start 07/23/16 at 20:29 Glucose (Glutose) 22.5 gm Q15M PRN PO DECREASED GLUCOSE; Start 07/23/16 at 20: 29 Dextrose (D50w Syringe) 25 ml Q15M PRN IV DECREASED GLUCOSE; Start 07/23/16 at 20:29 Dextrose (D50w Syringe) 50 ml Q15M PRN IV DECREASED GLUCOSE; Start 07/23/16 at 20:29 Glucagon (Glucagen) 1 mg Q15M PRN IM DECREASED GLUCOSE; Start 07/23/16 at 20:29 Glucose (Glutose) 15 gm Q15M PRN BUCCAL DECREASED GLUCOSE; Start 07/23/16 at 20 :29 Nalbuphine HCl (Nubain) 2.5 mg Q4H PRN IV PRURITUS; Start 07/23/16 at 20:29 Ondansetron HCl (Zofran Inj) 4 mg Q6H PRN IV NAUSEA AND/OR VOMITING Last administered on 07/27/16 14:57; Admin Dose 4 MG; Start 07/23/16 at 20:29 Naloxone HCl (Narcan) 0.2 mg Q2M PRN IV FOR RESP RATE 8 OR LESS; Start at 20:29 Morphine Sulfate (morphine) 2 mg Q3H PRN IV PAIN Last administered on 10:09; Admin Dose 2 MG; Start 07/23/16 at 20:29 Diagnostic Test (Pha) (Accucheck) 1 ea 02 XX ; Start 07/23/16 at 20:29 Famotidine (Pepcid) 20 mg DAILY PO Last administered on 08/01/16 08:25; Admin Dose 20 MG; Start 07/23/16 at 20:29 Bethanechol Chloride (Urecholine) 25 mg TID PO Last administered on 08/01/16 12:34; Admin Dose 25 MG; Start 07/23/16 at 20:29 Ferrous Sulfate (Ferrous Sulfate (Ec)) 325 mg TID PO Last administered on 12:34; Admin Dose 325 MG; Start 07/23/16 at 20:29 Acetaminophen/ Hydrocodone Bitart ([place] (5/325)) 1 tab Q4H PRN PO PAIN Last administered on 08/01/16 17:26; Admin Dose 1 TAB; Start 07/23/16 at 21:00 Hydralazine HCl (Apresoline) 10 mg Q6 PRN IV SBP>170 Last administered on 06:58; Admin Dose 10 MG; Start 07/24/16 at 12:30 Enoxaparin Sodium (Lovenox) 40 mg DAILY SC Last administered on 08/01/16 08:27 ; Admin Dose 40 MG; Start 07/26/16 at 20:00 Furosemide (Lasix) 40 mg DAILY PO Last administered on 08/01/16 08:26; Admin Dose 40 MG; Start 07/27/16 at 09:00 Lisinopril (Zestril) 20 mg BID PO Last administered on 08/01/16 08:26; Admin Dose 20 MG; Start 07/27/16 at 21:00 Hydralazine HCl (Apresoline) 50 mg BID PO Last administered on 08/01/16 08:26 ; Admin Dose 50 MG; Start 07/30/16 at 21:00 ARUNA ANTHONY 08/02/16 6969: Assessment/Plan VTE Prophylaxis VTE Prophylaxis Intervention: other Assessment/Plan Assessment/Plan - Intertrochanteric fracture of the left hip. S/p ORIF of the left hip 07/[address] Anderson, orthopedic surgery. Continue PT. continue pain management. - Breast cancer, status post left breast mastectomy and chemotherapy - Diabetes mellitus type 2, continue metformin and NovoLog from mild algorithm sliding scale - Hypertension, continue lisinopril, hydralazine as needed. Dr. Hunt is following in cardiology consultation. Continue to optimize blood pressure medication per cardiology. Further recommendations based on clinical course. Plan of care discussed with Dr. Hinds. Exam/Review of Systems Exam Constitutional: alert Head: atraumatic Eyes: nl sclera ENMT: nl external ears & nose Neck: non-tender Respiratory: clear to auscultation Cardiovascular: nl pulses Gastrointestinal: non-tender, soft Musculoskeletal: other Extremities: normal pulses Skin: other Lymph: nontender Results Result Diagram: 07/31/16 0613 ERICK PRICE Aug 01, 2016 19:03 ARUNA ANTHONY Aug 02, 2016 21:19
[2016-08-01 19:52] VITALS: BP 156/66; RESP 20
--- NOTE | 2016-08-01 23:21 | CONS ---
DATE OF ADMISSION: 07/23/2016 DATE OF CONSULTATION: 08/01/2016 TYPE OF CONSULTATION: Psychological. REFERRING PHYSICIAN: Akhil Garner MD CONSULTING PSYCHOLOGIST: Aruna Da Silva, PhD REASON FOR CONSULTATION: This consultation was requested by Dr. Nasir Garner, in order to evaluate the cognitive and emotional functioning of this patient related to her present medical condition. HISTORY OF PRESENT ILLNESS: The patient is a 71-year-old female. She has a history of hypertension , breast cancer, and type 2 diabetes. The patient did have a fall at home, and underwent a left hip replacement on 07/18/2016. The patient was cleared medically, and then transferred to the acute re habilitation unit for acute comprehensive rehabilitation care. The patient is motivated to get bett er and does want to return to her previous level of functioning. FAMILY/SOCIAL HISTORY: The patient reports that she lives in a home with her and wants to r eturn there after discharge. The patient reports that she fell at home trying to go to the bathroom about 3:00 in the morning. MEDICATIONS: The patient is not on any psychotropic medications at the present time. SUBSTANCE USE: The patient reports that she does not use alcohol or other drugs. The patient repor ts that she does not smoke. MENTAL STATUS EXAMINATION: APPEARANCE: The patient was seen in her wheelchair. She appeared to be of average height and weigh t. She was wearing glasses and had a net hat on. The patient is right-handed. BEHAVIOR: The patient was cooperative during the consultation. The patient did attempt to answer a ll questions presented to her by the interviewer. MOOD AND AFFECT: The patient's mood appeared to be slightly depressed. Affect did appear to be sli ghtly anxious. The patient did say that she was not anxious, but did say that she does sometimes ge t depressed. PERCEPTION: The patient reports no hallucinations or delusions. The patient was alert to person, p lace, situation, and time. MEMORY AND COGNITION: The patient's memory and cognition were basically intact. She had ability to name the hospital. The patient was able to say the month and the year. The patient was able to sa y who the presidential helicopter crew chief is. The patient could not say who the governor of the stat e is, the mayor of the city, or could not do serial 7s, subtractions from 100, or spell "world" back wards. This, however, may be related to educational issues rather than any cognitive dysfunction. INTELLIGENCE: Appears to fall in the average range when functioning well. INSIGHT: Fair. JUDGMENT: Fair. THOUGHT CONTENT: The patient is concerned about her present medical condition. The patient is brie vated to get better. The patient does want to return home after discharge. The patient is concerne d about her falling, and does want to learn how to be able to better take care of herself. DISCUSSION: The patient can likely benefit from some cognitive/behavioral psychotherapy while she i s on the unit. This psychotherapy would focus on her underlying level of depression, as well as praful ling with her medical problems. 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 Thank you very much, Dr. Nasir Garner, for referring this individual. Please do not hesitate to ca ll if you have any additional questions. Dictated By: ARUNA DA SILVA PHD LD/ALTAGRACIA Conf#: [id number] DID#: [id number]
[2016-08-02] MEDS: ACCU-CHEK XX SCH (02:00)
[2016-08-02 07:30] VITALS: BP 194/90; RESP 18
[2016-08-02] MEDS: INSULIN ASPART [NOVOLOG] 3 ML PEN SC SCH ×4 (07:35→21:00)
[2016-08-02 08:00] VITALS: BP 194/90; PULSE 91; RESP 18
[2016-08-02] MEDS: FAMOTIDINE 20 MG TAB PO SCH (08:05)
[2016-08-02] MEDS: metFORMIN 500 MG TAB PO SCH ×3 (08:05→17:12)
[2016-08-02] MEDS: FERROUS SULFATE (EC) 325 MG TAB PO SCH ×3 (08:06→20:38)
[2016-08-02] MEDS: LISINOPRIL 20 MG TAB PO SCH ×2 (08:06→20:42)
[2016-08-02] MEDS: FUROSEMIDE 40 MG TAB PO SCH (08:06)
[2016-08-02] MEDS: BETHANECHOL 25 MG TAB PO SCH ×3 (08:06→20:42)
[2016-08-02] MEDS: ASPIRIN (EC) 81 MG TAB PO SCH (08:06)
[2016-08-02] MEDS: ENOXAPARIN 40 MG/0.4 ML SYG SC SCH (08:11)
[2016-08-02 10:36] VITALS: BP 151/69; PULSE 85; RESP 18
[2016-08-02] MEDS: HYDROCODONE/APAP (5/325) TAB PO PRN ×3 (11:08→21:38)
--- NOTE | 2016-08-02 13:34 | CONS ---
Date/Time of Note Date/Time of Note DATE: 08/02/16 TIME: 13:32 Consult Date/Type/Reason Admit Date/Time Jul 23, 2016 at 19:40 Type of Consultation: cv Subjective improving activity tolerance Objective pulm-cta abd-soft sba wheelchair mobility Vital Signs Date Time Temp Pulse Resp B/P Pulse Ox O2 Delivery O2 Flow Rate FiO2 08/02/16 10:36 85 18 151/69 96 Room Air 08/02/16 08:00 98.5 Intake and Output 08/01/16 08/01/16 08/02/16 15:00 23:00 07:00 Intake Total 700 ml 820 ml 240 ml Output Total 3 ml Balance 700 ml 820 ml 237 ml Exam Rehab- Left intertrochanteric hip fracture status post ORIF. Continue rehab activities. Overall steady progress Acute pain syndrome-decreasing pain Hypertension. diabetes. Left breast carcinoma with history of mastectomy and chemotherapy Results/Medications Result Diagram: 07/31/16 0613 Results 24 hrs Laboratory Tests Test 08/01/16 17:40 08/01/16 20:20 08/02/16 07:48 08/02/16 12:05 Bedside Glucose 116 127 116 112 Medications Current Medications Acetaminophen (Tylenol Tab) 650 mg Q6H PRN PO PAIN LEVEL 1-3 OR FEVER Last administered on 07/31/16 09:30; Admin Dose 650 MG; Start 07/23/16 at 20:29 Aspirin (Halfprin) 81 mg DAILY PO Last administered on 08/02/16 08:06; Admin Dose 81 MG; Start 07/23/16 at 20:29 Miscellaneous Information 1 ea NOTE XX ; Start 07/23/16 at 20:29 Glucose (Glutose) 15 gm Q15M PRN PO DECREASED GLUCOSE; Start 07/23/16 at 20:29 Glucose (Glutose) 22.5 gm Q15M PRN PO DECREASED GLUCOSE; Start 07/23/16 at 20: 29 Dextrose (D50w Syringe) 25 ml Q15M PRN IV DECREASED GLUCOSE; Start 07/23/16 at 20:29 Dextrose (D50w Syringe) 50 ml Q15M PRN IV DECREASED GLUCOSE; Start 07/23/16 at 20:29 Glucagon (Glucagen) 1 mg Q15M PRN IM DECREASED GLUCOSE; Start 07/23/16 at 20:29 Glucose (Glutose) 15 gm Q15M PRN BUCCAL DECREASED GLUCOSE; Start 07/23/16 at 20 :29 Nalbuphine HCl (Nubain) 2.5 mg Q4H PRN IV PRURITUS; Start 07/23/16 at 20:29 Ondansetron HCl (Zofran Inj) 4 mg Q6H PRN IV NAUSEA AND/OR VOMITING Last administered on 07/27/16 14:57; Admin Dose 4 MG; Start 07/23/16 at 20:29 Naloxone HCl (Narcan) 0.2 mg Q2M PRN IV FOR RESP RATE 8 OR LESS; Start at 20:29 Morphine Sulfate (morphine) 2 mg Q3H PRN IV PAIN Last administered on 10:09; Admin Dose 2 MG; Start 07/23/16 at 20:29 Diagnostic Test (Pha) (Accucheck) 1 ea 02 XX ; Start 07/23/16 at 20:29 Famotidine (Pepcid) 20 mg DAILY PO Last administered on 08/02/16 08:05; Admin Dose 20 MG; Start 07/23/16 at 20:29 Bethanechol Chloride (Urecholine) 25 mg TID PO Last administered on 08/02/16 12:46; Admin Dose 25 MG; Start 07/23/16 at 20:29 Ferrous Sulfate (Ferrous Sulfate (Ec)) 325 mg TID PO Last administered on 12:44; Admin Dose 325 MG; Start 07/23/16 at 20:29 Acetaminophen/ Hydrocodone Bitart ([place] (5/325)) 1 tab Q4H PRN PO PAIN Last administered on 08/02/16 11:08; Admin Dose 1 TAB; Start 07/23/16 at 21:00 Hydralazine HCl (Apresoline) 10 mg Q6 PRN IV SBP>170 Last administered on 06:58; Admin Dose 10 MG; Start 07/24/16 at 12:30 Enoxaparin Sodium (Lovenox) 40 mg DAILY SC Last administered on 08/02/16 08:11 ; Admin Dose 40 MG; Start 07/26/16 at 20:00 Furosemide (Lasix) 40 mg DAILY PO Last administered on 08/02/16 08:06; Admin Dose 40 MG; Start 07/27/16 at 09:00 Lisinopril (Zestril) 20 mg BID PO Last administered on 08/02/16 08:06; Admin Dose 20 MG; Start 07/27/16 at 21:00 Hydralazine HCl (Apresoline) 50 mg BID PO Last administered on 08/02/16 08:06 ; Admin Dose 50 MG; Start 07/30/16 at 21:00 NEEAN BOYLE MD Aug 02, 2016 13:33
--- NOTE | 2016-08-02 14:34 | CONS ---
Date/Time of Note Date/Time of Note DATE: 08/02/16 TIME: 14:33 Assessment/Plan Assessment/Plan Additional Assessment/Plan Hip fracture status post surgical repair Preserved ejection fraction Hypertension, improved Diabetes Breast cancer -Patient still with uncontrolled hypertension. Would add Coreg. Lower extremity edema has improved, decreased dose of Lasix. Check labs Consultation Date/Type/Reason Admit Date/Time Jul 23, 2016 at 19:40 Type of Consultation: cv 24 HR Interval Summary Free Text/Dictation Denies shortness of breath, chest pain or palpitations Exam/Review of Systems Vital Signs Vitals Vital Signs Date Time Temp Pulse Resp B/P Pulse Ox O2 Delivery O2 Flow Rate FiO2 08/02/16 10:36 85 18 151/69 96 Room Air 08/02/16 08:00 98.5 Intake and Output 08/01/16 08/01/16 08/02/16 15:00 23:00 07:00 Intake Total 700 ml 820 ml 240 ml Output Total 3 ml Balance 700 ml 820 ml 237 ml Exam No apparent distress Constitutional: alert, frail, oriented Head: normocephalic Neck: supple Respiratory: other (Coarse breath sounds bilaterally, no wheezing) Cardiovascular: other (S1-S2 heard), regular rate and rhythm Gastrointestinal: bowel sounds, non-tender, other (No guarding), soft Extremities: edema (Trace), other (No cyanosis) Results Result Diagram: 07/31/16 0613 Results 24 hrs Laboratory Tests Test 08/01/16 17:40 08/01/16 20:20 08/02/16 07:48 08/02/16 12:05 Bedside Glucose 116 127 116 112 Medications Medications Current Medications Acetaminophen (Tylenol Tab) 650 mg Q6H PRN PO PAIN LEVEL 1-3 OR FEVER Last administered on 07/31/16 09:30; Admin Dose 650 MG; Start 07/23/16 at 20:29 Aspirin (Halfprin) 81 mg DAILY PO Last administered on 08/02/16 08:06; Admin Dose 81 MG; Start 07/23/16 at 20:29 Miscellaneous Information 1 ea NOTE XX ; Start 07/23/16 at 20:29 Glucose (Glutose) 15 gm Q15M PRN PO DECREASED GLUCOSE; Start 07/23/16 at 20:29 Glucose (Glutose) 22.5 gm Q15M PRN PO DECREASED GLUCOSE; Start 07/23/16 at 20: 29 Dextrose (D50w Syringe) 25 ml Q15M PRN IV DECREASED GLUCOSE; Start 07/23/16 at 20:29 Dextrose (D50w Syringe) 50 ml Q15M PRN IV DECREASED GLUCOSE; Start 07/23/16 at 20:29 Glucagon (Glucagen) 1 mg Q15M PRN IM DECREASED GLUCOSE; Start 07/23/16 at 20:29 Glucose (Glutose) 15 gm Q15M PRN BUCCAL DECREASED GLUCOSE; Start 07/23/16 at 20 :29 Nalbuphine HCl (Nubain) 2.5 mg Q4H PRN IV PRURITUS; Start 07/23/16 at 20:29 Ondansetron HCl (Zofran Inj) 4 mg Q6H PRN IV NAUSEA AND/OR VOMITING Last administered on 07/27/16 14:57; Admin Dose 4 MG; Start 07/23/16 at 20:29 Naloxone HCl (Narcan) 0.2 mg Q2M PRN IV FOR RESP RATE 8 OR LESS; Start at 20:29 Morphine Sulfate (morphine) 2 mg Q3H PRN IV PAIN Last administered on 10:09; Admin Dose 2 MG; Start 07/23/16 at 20:29 Diagnostic Test (Pha) (Accucheck) 1 ea 02 XX ; Start 07/23/16 at 20:29 Famotidine (Pepcid) 20 mg DAILY PO Last administered on 08/02/16 08:05; Admin Dose 20 MG; Start 07/23/16 at 20:29 Bethanechol Chloride (Urecholine) 25 mg TID PO Last administered on 08/02/16 12:46; Admin Dose 25 MG; Start 07/23/16 at 20:29 Ferrous Sulfate (Ferrous Sulfate (Ec)) 325 mg TID PO Last administered on 12:44; Admin Dose 325 MG; Start 07/23/16 at 20:29 Acetaminophen/ Hydrocodone Bitart ([place] (5/325)) 1 tab Q4H PRN PO PAIN Last administered on 08/02/16 11:08; Admin Dose 1 TAB; Start 07/23/16 at 21:00 Hydralazine HCl (Apresoline) 10 mg Q6 PRN IV SBP>170 Last administered on 06:58; Admin Dose 10 MG; Start 07/24/16 at 12:30 Enoxaparin Sodium (Lovenox) 40 mg DAILY SC Last administered on 08/02/16 08:11 ; Admin Dose 40 MG; Start 07/26/16 at 20:00 Furosemide (Lasix) 40 mg DAILY PO Last administered on 08/02/16 08:06; Admin Dose 40 MG; Start 07/27/16 at 09:00 Lisinopril (Zestril) 20 mg BID PO Last administered on 08/02/16 08:06; Admin Dose 20 MG; Start 07/27/16 at 21:00 Hydralazine HCl (Apresoline) 50 mg BID PO Last administered on 08/02/16 08:06 ; Admin Dose 50 MG; Start 07/30/16 at 21:00 Jose Hunt DO Aug 02, 2016 14:34
[2016-08-03] MEDS: ACCU-CHEK XX SCH (02:00)
[2016-08-03 07:09] LABS: ADD SCAN DIFF NO
[2016-08-03 07:14] LABS: BASOPHILS % 0.6 % (0.0-2.0); EOSINOPHILS # 0.3 10^3/ul (0.0-0.5); EOSINOPHILS % 3.7 % (0.0-7.0); HEMATOCRIT 29.3 % (37.0-47.0); HEMOGLOBIN 9.5 g/dl (12.0-16.0); LYMPHOCYTES # 1.1 10^3/ul (0.8-2.9); LYMPHOCYTES % 15.7 % (15.0-51.0); MEAN CORPUSCULAR HGB CONC 32.4 g/dl (32.0-37.0); MEAN CORPUSCULAR VOLUME 95.8 fl (82.0-101.0); MEAN PLATELET VOLUME 8.4 fl (7.4-10.4); MONOCYTE # 0.5 10^3/ul (0.3-0.9); MONOCYTES % 7.4 % (0.0-11.0); NEUTROPHIL # 5.2 10^3/ul (1.6-7.5); NEUTROPHILS % 72.2 % (39.0-77.0); PLATELET COUNT 535 10^3/UL (140-415); RED BLOOD COUNT 3.06 10^6/ul (4.20-5.40); RED CELL DISTRIBUTION WIDTH 13.6 % (11.5-14.5); WHITE BLOOD COUNT 7.3 10^3/ul (4.8-10.8)
[2016-08-03 07:35] LABS: CREATININE 0.74 mg/dl (0.44-1.00)
[2016-08-03] MEDS: INSULIN ASPART [NOVOLOG] 3 ML PEN SC SCH ×4 (07:35→21:00)
[2016-08-03 07:36] LABS: CALCIUM 9.2 mg/dl (8.4-10.2)
[2016-08-03 07:50] VITALS: BP 146/90; RESP 18
[2016-08-03 07:52] VITALS: BP 176/80; RESP 18
[2016-08-03] MEDS: FERROUS SULFATE (EC) 325 MG TAB PO SCH ×3 (08:19→21:09)
[2016-08-03] MEDS: FAMOTIDINE 20 MG TAB PO SCH (08:20)
[2016-08-03] MEDS: ASPIRIN (EC) 81 MG TAB PO SCH (08:20)
[2016-08-03] MEDS: HYDROCODONE/APAP (5/325) TAB PO PRN ×2 (08:20→19:33)
[2016-08-03] MEDS: BETHANECHOL 25 MG TAB PO SCH ×3 (08:20→21:09)
[2016-08-03] MEDS: metFORMIN 500 MG TAB PO SCH ×3 (08:20→17:20)
[2016-08-03] MEDS: FUROSEMIDE 40 MG TAB PO SCH (08:21)
[2016-08-03] MEDS: LISINOPRIL 20 MG TAB PO SCH ×2 (08:21→21:11)
[2016-08-03] MEDS: ENOXAPARIN 40 MG/0.4 ML SYG SC SCH (08:22)
--- NOTE | 2016-08-03 12:09 | CONS ---
Date/Time of Note Date/Time of Note DATE: 08/03/16 TIME: 12:08 Assessment/Plan Assessment/Plan Additional Assessment/Plan Hip fracture status post surgical repair Preserved ejection fraction Hypertension, improved Diabetes Breast cancer -Blood pressure still uncontrolled, would increase dose of Coreg, supplement magnesium, decrease Lasix to 20 mg daily. Consultation Date/Type/Reason Admit Date/Time Jul 23, 2016 at 19:40 Type of Consultation: cv 24 HR Interval Summary Free Text/Dictation Denies shortness of breath, palpitations or chest pain. Undergoing physical therapy Exam/Review of Systems Vital Signs Vitals Vital Signs Date Time Temp Pulse Resp B/P Pulse Ox O2 Delivery O2 Flow Rate FiO2 08/03/16 07:52 98.4 82 18 176/80 96 08/02/16 10:36 Room Air Intake and Output 08/02/16 08/02/16 08/03/16 15:00 23:00 07:00 Intake Total 420 ml 320 ml Output Total 2 ml Balance 418 ml 320 ml Exam Undergoing physical therapy Constitutional: alert, frail, oriented Head: normocephalic Neck: supple Respiratory: clear to auscultation, normal air movement Cardiovascular: other (S1-S2 heard), regular rate and rhythm Gastrointestinal: bowel sounds, non-tender, soft Extremities: edema (Trace), other (No cyanosis) Results Result Diagram: 08/03/16 0602 08/03/16 0602 Results 24 hrs Laboratory Tests Test 08/02/16 16:34 08/02/16 20:14 08/03/16 06:02 08/03/16 07:42 Bedside Glucose 130 121 116 White Blood Count 7.3 # Red Blood Count 3.06 L Hemoglobin 9.5 L Hematocrit 29.3 L Mean Corpuscular Volume 95.8 Mean Corpuscular Hemoglobin 31.0 Mean Corpuscular Hemoglobin Concent 32.4 Red Cell Distribution Width 13.6 Platelet Count 535 #H Mean Platelet Volume 8.4 Neutrophils % 72.2 Lymphocytes % 15.7 Monocytes % 7.4 Eosinophils % 3.7 Basophils % 0.6 Nucleated Red Blood Cells % 0.0 Neutrophils # 5.2 Lymphocytes # 1.1 Monocytes # 0.5 Eosinophils # 0.3 Basophils # 0.0 Nucleated Red Blood Cells # 0.0 Sodium Level 138 Potassium Level 4.0 Chloride Level 96 L Carbon Dioxide Level 34 H Anion Gap 12 Blood Urea Nitrogen 30 H Creatinine 0.74 Glucose Level 132 Calcium Level 9.2 Magnesium Level 1.7 Test 08/03/16 12:00 Bedside Glucose 140 Medications Medications Current Medications Acetaminophen (Tylenol Tab) 650 mg Q6H PRN PO PAIN LEVEL 1-3 OR FEVER Last administered on 07/31/16 09:30; Admin Dose 650 MG; Start 07/23/16 at 20:29 Aspirin (Halfprin) 81 mg DAILY PO Last administered on 08/03/16 08:20; Admin Dose 81 MG; Start 07/23/16 at 20:29 Miscellaneous Information 1 ea NOTE XX ; Start 07/23/16 at 20:29 Glucose (Glutose) 15 gm Q15M PRN PO DECREASED GLUCOSE; Start 07/23/16 at 20:29 Glucose (Glutose) 22.5 gm Q15M PRN PO DECREASED GLUCOSE; Start 07/23/16 at 20: 29 Dextrose (D50w Syringe) 25 ml Q15M PRN IV DECREASED GLUCOSE; Start 07/23/16 at 20:29 Dextrose (D50w Syringe) 50 ml Q15M PRN IV DECREASED GLUCOSE; Start 07/23/16 at 20:29 Glucagon (Glucagen) 1 mg Q15M PRN IM DECREASED GLUCOSE; Start 07/23/16 at 20:29 Glucose (Glutose) 15 gm Q15M PRN BUCCAL DECREASED GLUCOSE; Start 07/23/16 at 20 :29 Nalbuphine HCl (Nubain) 2.5 mg Q4H PRN IV PRURITUS; Start 07/23/16 at 20:29 Ondansetron HCl (Zofran Inj) 4 mg Q6H PRN IV NAUSEA AND/OR VOMITING Last administered on 07/27/16 14:57; Admin Dose 4 MG; Start 07/23/16 at 20:29 Naloxone HCl (Narcan) 0.2 mg Q2M PRN IV FOR RESP RATE 8 OR LESS; Start at 20:29 Morphine Sulfate (morphine) 2 mg Q3H PRN IV PAIN Last administered on 10:09; Admin Dose 2 MG; Start 07/23/16 at 20:29 Diagnostic Test (Pha) (Accucheck) 1 ea 02 XX ; Start 07/23/16 at 20:29 Famotidine (Pepcid) 20 mg DAILY PO Last administered on 08/03/16 08:20; Admin Dose 20 MG; Start 07/23/16 at 20:29 Bethanechol Chloride (Urecholine) 25 mg TID PO Last administered on 08/03/16 08:20; Admin Dose 25 MG; Start 07/23/16 at 20:29 Ferrous Sulfate (Ferrous Sulfate (Ec)) 325 mg TID PO Last administered on 08:19; Admin Dose 325 MG; Start 07/23/16 at 20:29 Acetaminophen/ Hydrocodone Bitart ([place] (5/325)) 1 tab Q4H PRN PO PAIN Last administered on 08/03/16 08:20; Admin Dose 1 TAB; Start 07/23/16 at 21:00 Hydralazine HCl (Apresoline) 10 mg Q6 PRN IV SBP>170 Last administered on 06:58; Admin Dose 10 MG; Start 07/24/16 at 12:30 Enoxaparin Sodium (Lovenox) 40 mg DAILY SC Last administered on 08/03/16 08:22 ; Admin Dose 40 MG; Start 07/26/16 at 20:00 Furosemide (Lasix) 40 mg DAILY PO Last administered on 08/03/16 08:21; Admin Dose 40 MG; Start 07/27/16 at 09:00 Lisinopril (Zestril) 20 mg BID PO Last administered on 08/03/16 08:21; Admin Dose 20 MG; Start 07/27/16 at 21:00 Hydralazine HCl (Apresoline) 50 mg BID PO Last administered on 08/03/16 08:22 ; Admin Dose 50 MG; Start 07/30/16 at 21:00 Carvedilol (Coreg) 6.25 mg BID PO Last administered on 08/03/16 08:21; Admin Dose 6.25 MG; Start 08/02/16 at 15:00 Jose Hunt DO Aug 03, 2016 12:09
--- NOTE | 2016-08-03 12:52 | CONS ---
Date/Time of Note Date/Time of Note DATE: 08/03/16 TIME: 12:51 Consult Date/Type/Reason Admit Date/Time Jul 23, 2016 at 19:40 Type of Consultation: cv Subjective Comfortable Objective pulm-cta mod/max assist Vital Signs Date Time Temp Pulse Resp B/P Pulse Ox O2 Delivery O2 Flow Rate FiO2 08/03/16 07:52 98.4 82 18 176/80 96 08/02/16 10:36 Room Air Intake and Output 08/02/16 08/02/16 08/03/16 15:00 23:00 07:00 Intake Total 420 ml 320 ml Output Total 2 ml Balance 418 ml 320 ml Results/Medications Result Diagram: 08/03/16 0602 08/03/16 0602 Results 24 hrs Laboratory Tests Test 08/02/16 16:34 08/02/16 20:14 08/03/16 06:02 08/03/16 07:42 Bedside Glucose 130 121 116 White Blood Count 7.3 # Red Blood Count 3.06 L Hemoglobin 9.5 L Hematocrit 29.3 L Mean Corpuscular Volume 95.8 Mean Corpuscular Hemoglobin 31.0 Mean Corpuscular Hemoglobin Concent 32.4 Red Cell Distribution Width 13.6 Platelet Count 535 #H Mean Platelet Volume 8.4 Neutrophils % 72.2 Lymphocytes % 15.7 Monocytes % 7.4 Eosinophils % 3.7 Basophils % 0.6 Nucleated Red Blood Cells % 0.0 Neutrophils # 5.2 Lymphocytes # 1.1 Monocytes # 0.5 Eosinophils # 0.3 Basophils # 0.0 Nucleated Red Blood Cells # 0.0 Sodium Level 138 Potassium Level 4.0 Chloride Level 96 L Carbon Dioxide Level 34 H Anion Gap 12 Blood Urea Nitrogen 30 H Creatinine 0.74 Glucose Level 132 Calcium Level 9.2 Magnesium Level 1.7 Test 08/03/16 12:00 Bedside Glucose 140 Medications Current Medications Acetaminophen (Tylenol Tab) 650 mg Q6H PRN PO PAIN LEVEL 1-3 OR FEVER Last administered on 07/31/16 09:30; Admin Dose 650 MG; Start 07/23/16 at 20:29 Aspirin (Halfprin) 81 mg DAILY PO Last administered on 08/03/16 08:20; Admin Dose 81 MG; Start 07/23/16 at 20:29 Miscellaneous Information 1 ea NOTE XX ; Start 07/23/16 at 20:29 Glucose (Glutose) 15 gm Q15M PRN PO DECREASED GLUCOSE; Start 07/23/16 at 20:29 Glucose (Glutose) 22.5 gm Q15M PRN PO DECREASED GLUCOSE; Start 07/23/16 at 20: 29 Dextrose (D50w Syringe) 25 ml Q15M PRN IV DECREASED GLUCOSE; Start 07/23/16 at 20:29 Dextrose (D50w Syringe) 50 ml Q15M PRN IV DECREASED GLUCOSE; Start 07/23/16 at 20:29 Glucagon (Glucagen) 1 mg Q15M PRN IM DECREASED GLUCOSE; Start 07/23/16 at 20:29 Glucose (Glutose) 15 gm Q15M PRN BUCCAL DECREASED GLUCOSE; Start 07/23/16 at 20 :29 Nalbuphine HCl (Nubain) 2.5 mg Q4H PRN IV PRURITUS; Start 07/23/16 at 20:29 Ondansetron HCl (Zofran Inj) 4 mg Q6H PRN IV NAUSEA AND/OR VOMITING Last administered on 07/27/16 14:57; Admin Dose 4 MG; Start 07/23/16 at 20:29 Naloxone HCl (Narcan) 0.2 mg Q2M PRN IV FOR RESP RATE 8 OR LESS; Start at 20:29 Morphine Sulfate (morphine) 2 mg Q3H PRN IV PAIN Last administered on 10:09; Admin Dose 2 MG; Start 07/23/16 at 20:29 Diagnostic Test (Pha) (Accucheck) 1 ea 02 XX ; Start 07/23/16 at 20:29 Famotidine (Pepcid) 20 mg DAILY PO Last administered on 08/03/16 08:20; Admin Dose 20 MG; Start 07/23/16 at 20:29 Bethanechol Chloride (Urecholine) 25 mg TID PO Last administered on 08/03/16 12:42; Admin Dose 25 MG; Start 07/23/16 at 20:29 Ferrous Sulfate (Ferrous Sulfate (Ec)) 325 mg TID PO Last administered on 12:42; Admin Dose 325 MG; Start 07/23/16 at 20:29 Acetaminophen/ Hydrocodone Bitart ([place] (5/325)) 1 tab Q4H PRN PO PAIN Last administered on 08/03/16 08:20; Admin Dose 1 TAB; Start 07/23/16 at 21:00 Hydralazine HCl (Apresoline) 10 mg Q6 PRN IV SBP>170 Last administered on 06:58; Admin Dose 10 MG; Start 07/24/16 at 12:30 Enoxaparin Sodium (Lovenox) 40 mg DAILY SC Last administered on 08/03/16 08:22 ; Admin Dose 40 MG; Start 07/26/16 at 20:00 Lisinopril (Zestril) 20 mg BID PO Last administered on 08/03/16 08:21; Admin Dose 20 MG; Start 07/27/16 at 21:00 Hydralazine HCl (Apresoline) 50 mg BID PO Last administered on 08/03/16 08:22 ; Admin Dose 50 MG; Start 07/30/16 at 21:00 Carvedilol (Coreg) 12.5 mg BID PO ; Start 08/03/16 at 21:00 Furosemide 20 mg 20 mg DAILY PO ; Start 08/04/16 at 09:00 Magnesium Sulfate (Magnesium Sulfate 2 Gm/50 ml) 50 ml @ 25 mls/hr ONCE ONCE IVPB ; Start 08/03/16 at 14:00; Stop 08/03/16 at 15:59 Assessment/Plan Additional Assessment/Plan Rehab- Left intertrochanteric hip fracture status post ORIF. Patient progressing with rehab Acute pain syndrome-decreasing pain Hypertension. diabetes. Left breast carcinoma with history of mastectomy and chemotherapy NEENA BOYLE MD Aug 03, 2016 12:52
[2016-08-03] MEDS ORDERED: MAGNESIUM SULFATE 2 GM/50 ML 50 ML IVPB ONE (14:00)
--- NOTE | 2016-08-03 18:51 | PN ---
Date/Time of Note Date/Time of Note DATE: 08/03/16 TIME: 18:47 Assessment/Plan VTE Prophylaxis VTE Prophylaxis Intervention: SCD's Lines/Catheters IV Catheter Type (from Nrs): Central Line Central line still needed: Yes Urinary Cath still in place: No Reason Cath still needed: urinary retention Assessment/Plan Chief Complaint/Hosp Course Assessment/Plan - Intertrochanteric fracture of the left hip. S/p ORIF of the left hip 07/[address] Anderson, orthopedic surgery. Continue PT. continue pain management. - Breast cancer, status post left breast mastectomy and chemotherapy - Diabetes mellitus type 2, continue metformin and NovoLog from mild algorithm sliding scale - Hypertension, continue lisinopril, Coreg, hydralazine. Dr. Hunt is following in cardiology consultation. Continue to optimize blood pressure medication per cardiology. Further recommendations based on clinical course. Plan of care discussed with Dr. Hinds. Problems: Subjective 24 Hr Interval Summary Free Text/Dictation Patient's continues to participate in physical and occupational therapy, pain is well controlled, patient was episode of elevated blood pressure in a.m.. Exam/Review of Systems Vital Signs Vitals Vital Signs Date Time Temp Pulse Resp B/P Pulse Ox O2 Delivery O2 Flow Rate FiO2 08/03/16 07:52 98.4 82 18 176/80 96 08/02/16 10:36 Room Air Intake and Output 08/02/16 08/02/16 08/03/16 15:00 23:00 07:00 Intake Total 420 ml 320 ml Output Total 2 ml Balance 418 ml 320 ml Exam PHYSICAL ASSESSMENT: GENERAL: Well-developed, obese gentleman. Currently, he is awake, alert, in no acute distress. HEENT: Head is atraumatic, normocephalic. PERRLA. NECK: Supple. No cervical lymphadenopathy, no thyromegaly. CHEST: Lungs clear, both slightly diminished at the bases. There are no rhonchi, wheezes noted. CARDIOVASCULAR: Normal S1, S2. No murmurs, gallops, clicks, rubs noted. ABDOMEN: Protuberant, soft, nondistended, nontender. Bowel sounds present. EXTREMITIES: The patient has mild edema, 1+. No clubbing, no cyanosis. Pulses equal bilaterally 2+. SKIN: There is no rash, petechiae noted. NEUROLOGIC: The patient is awake, alert, and oriented x4 Results Result Diagram: 08/03/16 0602 08/03/16 0602 Results 24 hrs Laboratory Tests Test 08/02/16 20:14 08/03/16 06:02 08/03/16 07:42 08/03/16 12:00 Bedside Glucose 121 116 140 White Blood Count 7.3 # Red Blood Count 3.06 L Hemoglobin 9.5 L Hematocrit 29.3 L Mean Corpuscular Volume 95.8 Mean Corpuscular Hemoglobin 31.0 Mean Corpuscular Hemoglobin Concent 32.4 Red Cell Distribution Width 13.6 Platelet Count 535 #H Mean Platelet Volume 8.4 Neutrophils % 72.2 Lymphocytes % 15.7 Monocytes % 7.4 Eosinophils % 3.7 Basophils % 0.6 Nucleated Red Blood Cells % 0.0 Neutrophils # 5.2 Lymphocytes # 1.1 Monocytes # 0.5 Eosinophils # 0.3 Basophils # 0.0 Nucleated Red Blood Cells # 0.0 Sodium Level 138 Potassium Level 4.0 Chloride Level 96 L Carbon Dioxide Level 34 H Anion Gap 12 Blood Urea Nitrogen 30 H Creatinine 0.74 Glucose Level 132 Calcium Level 9.2 Magnesium Level 1.7 Test 08/03/16 17:08 Bedside Glucose 135 Medications Medications Current Medications Acetaminophen (Tylenol Tab) 650 mg Q6H PRN PO PAIN LEVEL 1-3 OR FEVER Last administered on 07/31/16 09:30; Admin Dose 650 MG; Start 07/23/16 at 20:29 Aspirin (Halfprin) 81 mg DAILY PO Last administered on 08/03/16 08:20; Admin Dose 81 MG; Start 07/23/16 at 20:29 Miscellaneous Information 1 ea NOTE XX ; Start 07/23/16 at 20:29 Glucose (Glutose) 15 gm Q15M PRN PO DECREASED GLUCOSE; Start 07/23/16 at 20:29 Glucose (Glutose) 22.5 gm Q15M PRN PO DECREASED GLUCOSE; Start 07/23/16 at 20: 29 Dextrose (D50w Syringe) 25 ml Q15M PRN IV DECREASED GLUCOSE; Start 07/23/16 at 20:29 Dextrose (D50w Syringe) 50 ml Q15M PRN IV DECREASED GLUCOSE; Start 07/23/16 at 20:29 Glucagon (Glucagen) 1 mg Q15M PRN IM DECREASED GLUCOSE; Start 07/23/16 at 20:29 Glucose (Glutose) 15 gm Q15M PRN BUCCAL DECREASED GLUCOSE; Start 07/23/16 at 20 :29 Nalbuphine HCl (Nubain) 2.5 mg Q4H PRN IV PRURITUS; Start 07/23/16 at 20:29 Ondansetron HCl (Zofran Inj) 4 mg Q6H PRN IV NAUSEA AND/OR VOMITING Last administered on 07/27/16 14:57; Admin Dose 4 MG; Start 07/23/16 at 20:29 Naloxone HCl (Narcan) 0.2 mg Q2M PRN IV FOR RESP RATE 8 OR LESS; Start at 20:29 Morphine Sulfate (morphine) 2 mg Q3H PRN IV PAIN Last administered on 10:09; Admin Dose 2 MG; Start 07/23/16 at 20:29 Diagnostic Test (Pha) (Accucheck) 1 ea 02 XX ; Start 07/23/16 at 20:29 Famotidine (Pepcid) 20 mg DAILY PO Last administered on 08/03/16 08:20; Admin Dose 20 MG; Start 07/23/16 at 20:29 Bethanechol Chloride (Urecholine) 25 mg TID PO Last administered on 08/03/16 12:42; Admin Dose 25 MG; Start 07/23/16 at 20:29 Ferrous Sulfate (Ferrous Sulfate (Ec)) 325 mg TID PO Last administered on 12:42; Admin Dose 325 MG; Start 07/23/16 at 20:29 Acetaminophen/ Hydrocodone Bitart ([place] (5/325)) 1 tab Q4H PRN PO PAIN Last administered on 08/03/16 08:20; Admin Dose 1 TAB; Start 07/23/16 at 21:00 Hydralazine HCl (Apresoline) 10 mg Q6 PRN IV SBP>170 Last administered on 06:58; Admin Dose 10 MG; Start 07/24/16 at 12:30 Enoxaparin Sodium (Lovenox) 40 mg DAILY SC Last administered on 08/03/16 08:22 ; Admin Dose 40 MG; Start 07/26/16 at 20:00 Lisinopril (Zestril) 20 mg BID PO Last administered on 08/03/16 08:21; Admin Dose 20 MG; Start 07/27/16 at 21:00 Hydralazine HCl (Apresoline) 50 mg BID PO Last administered on 08/03/16 08:22 ; Admin Dose 50 MG; Start 07/30/16 at 21:00 Carvedilol (Coreg) 12.5 mg BID PO ; Start 08/03/16 at 21:00 Furosemide (Lasix) 20 mg DAILY PO ; Start 08/04/16 at 09:00 ERICK PRICE Aug 03, 2016 18:51
[2016-08-03 19:59] VITALS: BP 174/79; RESP 21
[2016-08-04] MEDS: ACCU-CHEK XX SCH (02:00)
[2016-08-04] MEDS: INSULIN ASPART [NOVOLOG] 3 ML PEN SC SCH ×4 (07:35→20:36)
[2016-08-04] MEDS: BETHANECHOL 25 MG TAB PO SCH ×3 (08:41→20:25)
[2016-08-04] MEDS: FUROSEMIDE 20 MG TAB PO SCH (08:43)
[2016-08-04] MEDS: metFORMIN 500 MG TAB PO SCH ×3 (08:43→17:26)
[2016-08-04] MEDS: FERROUS SULFATE (EC) 325 MG TAB PO SCH ×3 (08:43→20:25)
[2016-08-04] MEDS: ASPIRIN (EC) 81 MG TAB PO SCH (08:43)
[2016-08-04] MEDS: LISINOPRIL 20 MG TAB PO SCH ×2 (08:44→20:25)
[2016-08-04] MEDS: ENOXAPARIN 40 MG/0.4 ML SYG SC SCH (08:47)
[2016-08-04] MEDS: FAMOTIDINE 20 MG TAB PO SCH (08:48)
[2016-08-04] MEDS: HYDROCODONE/APAP (5/325) TAB PO PRN ×2 (08:51→20:27)
--- NOTE | 2016-08-04 14:03 | PN ---
Date/Time of Note Date/Time of Note DATE: 08/04/16 TIME: 14:01 Assessment/Plan VTE Prophylaxis VTE Prophylaxis Intervention: LMWH Lines/Catheters IV Catheter Type (from Nrs): Saline Lock Urinary Cath still in place: No Assessment/Plan Assessment/Plan 1. Left intertrochanteric hip fracture status post ORIF. With impaired mobility/ gait/ADLs. Continue PT/OT. Mod assist for gait 15ft with FWW. 2. Acute postoperative pain syndrome. Continue to monitor pain levels, continue current pain regimen including prn norco. 3. Hypertension. BP intermittently elevated. Cardiology/internal medicine adjusting medications. 4. Diabetes mellitus. On metformin and insulin sliding scale per internal medicine. Blood sugars controlled. 5. History of left breast carcinoma s/p mastectomy and chemotherapy. 6. Anemia. On iron supplementation. Monitor hemoglobin/hematocrit, improving on last labs. Subjective 24 Hr Interval Summary Free Text/Dictation Rehab progress note Subjective: No acute complaints. No current pain in left hip. ROS: Denies headache, no dizziness, no chills, no chest pain, no shortness of breath, no abdominal pain. Exam/Review of Systems Vital Signs Vitals Vital Signs Date Time Temp Pulse Resp B/P Pulse Ox O2 Delivery O2 Flow Rate FiO2 08/03/16 19:59 98.6 21 174/79 99 08/03/16 07:52 82 08/02/16 10:36 Room Air Intake and Output 08/03/16 08/03/16 08/04/16 15:00 23:00 07:00 Intake Total 480 ml 290 ml 550 ml Output Total 153 ml Balance 327 ml 290 ml 550 ml Exam General: Awake, alert, no acute distress CV: Regular rate, s1s2 Lungs: Respirations nonlabored, No wheezing, no crackles Abdomen soft, nontender Extremities without cyanosis, calves nontender Neuro: No new focal changes. Follows simple commands. Results Result Diagram: 08/03/16 0602 08/03/16 0602 Results 24 hrs Laboratory Tests Test 08/03/16 17:08 08/03/16 21:05 08/04/16 07:47 08/04/16 12:17 Bedside Glucose 135 105 116 101 Medications Medications Current Medications Acetaminophen (Tylenol Tab) 650 mg Q6H PRN PO PAIN LEVEL 1-3 OR FEVER Last administered on 07/31/16t 09:30; Admin Dose 650 MG; Start 07/23/16 at 20:29 Aspirin (Halfprin) 81 mg DAILY PO Last administered on 08/04/16 08:43; Admin Dose 81 MG; Start 07/23/16 at 20:29 Miscellaneous Information 1 ea NOTE XX ; Start 07/23/16 at 20:29 Glucose (Glutose) 15 gm Q15M PRN PO DECREASED GLUCOSE; Start 07/23/16 at 20:29 Glucose (Glutose) 22.5 gm Q15M PRN PO DECREASED GLUCOSE; Start 07/23/16 at 20: 29 Dextrose (D50w Syringe) 25 ml Q15M PRN IV DECREASED GLUCOSE; Start 07/23/16 at 20:29 Dextrose (D50w Syringe) 50 ml Q15M PRN IV DECREASED GLUCOSE; Start 07/23/16 at 20:29 Glucagon (Glucagen) 1 mg Q15M PRN IM DECREASED GLUCOSE; Start 07/23/16 at 20:29 Glucose (Glutose) 15 gm Q15M PRN BUCCAL DECREASED GLUCOSE; Start 07/23/16 at 20 :29 Nalbuphine HCl (Nubain) 2.5 mg Q4H PRN IV PRURITUS; Start 07/23/16 at 20:29 Ondansetron HCl (Zofran Inj) 4 mg Q6H PRN IV NAUSEA AND/OR VOMITING Last administered on 07/27/16 14:57; Admin Dose 4 MG; Start 07/23/16 at 20:29 Naloxone HCl (Narcan) 0.2 mg Q2M PRN IV FOR RESP RATE 8 OR LESS; Start at 20:29 Morphine Sulfate (morphine) 2 mg Q3H PRN IV PAIN Last administered on 10:09; Admin Dose 2 MG; Start 07/23/16 at 20:29 Diagnostic Test (Pha) (Accucheck) 1 ea 02 XX ; Start 07/23/16 at 20:29 Famotidine (Pepcid) 20 mg DAILY PO Last administered on 08/04/16 08:48; Admin Dose 20 MG; Start 07/23/16 at 20:29 Bethanechol Chloride (Urecholine) 25 mg TID PO Last administered on 08/04/16 12:29; Admin Dose 25 MG; Start 07/23/16 at 20:29 Ferrous Sulfate (Ferrous Sulfate (Ec)) 325 mg TID PO Last administered on 12:29; Admin Dose 325 MG; Start 07/23/16 at 20:29 Acetaminophen/ Hydrocodone Bitart ([place] (5/325)) 1 tab Q4H PRN PO PAIN Last administered on 08/04/16 08:51; Admin Dose 1 TAB; Start 07/23/16 at 21:00 Hydralazine HCl (Apresoline) 10 mg Q6 PRN IV SBP>170 Last administered on 06:58; Admin Dose 10 MG; Start 07/24/16 at 12:30 Enoxaparin Sodium (Lovenox) 40 mg DAILY SC Last administered on 08/04/16 08:47 ; Admin Dose 40 MG; Start 07/26/16 at 20:00 Lisinopril (Zestril) 20 mg BID PO Last administered on 08/04/16 08:44; Admin Dose 20 MG; Start 07/27/16 at 21:00 Hydralazine HCl (Apresoline) 50 mg BID PO Last administered on 08/04/16 08:44 ; Admin Dose 50 MG; Start 07/30/16 at 21:00 Carvedilol (Coreg) 12.5 mg BID PO Last administered on 08/04/16 08:44; Admin Dose 12.5 MG; Start 08/03/16 at 21:00 Furosemide (Lasix) 20 mg DAILY PO Last administered on 08/04/16 08:43; Admin Dose 20 MG; Start 08/04/16 at 09:00 NANCIE GALAN Aug 04, 2016 14:03
--- NOTE | 2016-08-04 17:04 | PN ---
Date/Time of Note Date/Time of Note DATE: 08/04/16 TIME: 17:03 Assessment/Plan Lines/Catheters IV Catheter Type (from Nrs): Saline Lock Urinary Cath still in place: No Subjective 24 Hr Interval Summary Eyes: no complaints ENT: no complaints Respiratory: no complaints Cardiovascular: no complaints Gastrointestinal: no complaints Genitourinary: no complaints Musculoskeletal: no complaints Skin: no complaints Neurologic: no complaints Endocrine: no complaints Lymphatic: no complaints Psychological: no complaints Immunologic: no complaints Exam/Review of Systems Vital Signs Vitals Vital Signs Date Time Temp Pulse Resp B/P Pulse Ox O2 Delivery O2 Flow Rate FiO2 08/03/16 19:59 98.6 21 174/79 99 08/03/16 07:52 82 08/02/16 10:36 Room Air Intake and Output 08/03/16 08/03/16 08/04/16 15:00 23:00 07:00 Intake Total 480 ml 290 ml 550 ml Output Total 153 ml Balance 327 ml 290 ml 550 ml Exam NAD. Tolerates PT. no acute issues. DW Constitutional: alert, oriented, well developed Psych: nl mood/affect Head: atraumatic Eyes: EOMI, PERRL, nl sclera ENMT: nl external ears & nose Respiratory: clear to auscultation Cardiovascular: nl pulses Gastrointestinal: non-tender, soft Musculoskeletal: nl extremities to inspection, other Extremities: normal pulses Neurological: nl mental status, nl speech Skin: other Lymph: nontender Results Result Diagram: 08/03/16 0602 08/03/16 0602 Results 24 hrs Laboratory Tests Test 08/03/16 17:08 08/03/16 21:05 08/04/16 07:47 08/04/16 12:17 Bedside Glucose 135 105 116 101 Medications Medications Current Medications Acetaminophen (Tylenol Tab) 650 mg Q6H PRN PO PAIN LEVEL 1-3 OR FEVER Last administered on 07/31/16 09:30; Admin Dose 650 MG; Start 07/23/16 at 20:29 Aspirin (Halfprin) 81 mg DAILY PO Last administered on 08/04/16 08:43; Admin Dose 81 MG; Start 07/23/16 at 20:29 Miscellaneous Information 1 ea NOTE XX ; Start 07/23/16 at 20:29 Glucose (Glutose) 15 gm Q15M PRN PO DECREASED GLUCOSE; Start 07/23/16 at 20:29 Glucose (Glutose) 22.5 gm Q15M PRN PO DECREASED GLUCOSE; Start 07/23/16 at 20: 29 Dextrose (D50w Syringe) 25 ml Q15M PRN IV DECREASED GLUCOSE; Start 07/23/16 at 20:29 Dextrose (D50w Syringe) 50 ml Q15M PRN IV DECREASED GLUCOSE; Start 07/23/16 at 20:29 Glucagon (Glucagen) 1 mg Q15M PRN IM DECREASED GLUCOSE; Start 07/23/16 at 20:29 Glucose (Glutose) 15 gm Q15M PRN BUCCAL DECREASED GLUCOSE; Start 07/23/16 at 20 :29 Nalbuphine HCl (Nubain) 2.5 mg Q4H PRN IV PRURITUS; Start 07/23/16 at 20:29 Ondansetron HCl (Zofran Inj) 4 mg Q6H PRN IV NAUSEA AND/OR VOMITING Last administered on 07/27/16 14:57; Admin Dose 4 MG; Start 07/23/16 at 20:29 Naloxone HCl (Narcan) 0.2 mg Q2M PRN IV FOR RESP RATE 8 OR LESS; Start at 20:29 Morphine Sulfate (morphine) 2 mg Q3H PRN IV PAIN Last administered on 10:09; Admin Dose 2 MG; Start 07/23/16 at 20:29 Diagnostic Test (Pha) (Accucheck) 1 ea 02 XX ; Start 07/23/16 at 20:29 Famotidine (Pepcid) 20 mg DAILY PO Last administered on 08/04/16 08:48; Admin Dose 20 MG; Start 07/23/16 at 20:29 Bethanechol Chloride (Urecholine) 25 mg TID PO Last administered on 08/04/16 12:29; Admin Dose 25 MG; Start 07/23/16 at 20:29 Ferrous Sulfate (Ferrous Sulfate (Ec)) 325 mg TID PO Last administered on 12:29; Admin Dose 325 MG; Start 07/23/16 at 20:29 Acetaminophen/ Hydrocodone Bitart ([place] (5/325)) 1 tab Q4H PRN PO PAIN Last administered on 08/04/16 08:51; Admin Dose 1 TAB; Start 07/23/16 at 21:00 Hydralazine HCl (Apresoline) 10 mg Q6 PRN IV SBP>170 Last administered on 06:58; Admin Dose 10 MG; Start 07/24/16 at 12:30 Enoxaparin Sodium (Lovenox) 40 mg DAILY SC Last administered on 08/04/16 08:47 ; Admin Dose 40 MG; Start 07/26/16 at 20:00 Lisinopril (Zestril) 20 mg BID PO Last administered on 08/04/16 08:44; Admin Dose 20 MG; Start 07/27/16 at 21:00 Hydralazine HCl (Apresoline) 50 mg BID PO Last administered on 08/04/16 08:44 ; Admin Dose 50 MG; Start 07/30/16 at 21:00 Carvedilol (Coreg) 12.5 mg BID PO Last administered on 08/04/16 08:44; Admin Dose 12.5 MG; Start 08/03/16 at 21:00 Furosemide (Lasix) 20 mg DAILY PO Last administered on 08/04/16 08:43; Admin Dose 20 MG; Start 08/04/16 at 09:00 ARUNA ANTHONY Aug 04, 2016 17:04
[2016-08-05] MEDS: ACCU-CHEK XX SCH (02:00)
[2016-08-05] MEDS: HYDROCODONE/APAP (5/325) TAB PO PRN ×4 (07:05→21:05)
[2016-08-05] MEDS: INSULIN ASPART [NOVOLOG] 3 ML PEN SC SCH ×4 (07:35→20:04)
[2016-08-05 07:41] VITALS: BP 197/86; RESP 18
[2016-08-05] MEDS: metFORMIN 500 MG TAB PO SCH ×3 (08:19→16:54)
[2016-08-05] MEDS: ASPIRIN (EC) 81 MG TAB PO SCH (08:20)
[2016-08-05] MEDS: FERROUS SULFATE (EC) 325 MG TAB PO SCH ×3 (08:20→20:02)
[2016-08-05] MEDS: FAMOTIDINE 20 MG TAB PO SCH (08:21)
[2016-08-05] MEDS: BETHANECHOL 25 MG TAB PO SCH ×3 (08:21→20:03)
[2016-08-05] MEDS: FUROSEMIDE 20 MG TAB PO SCH (08:21)
[2016-08-05] MEDS: LISINOPRIL 20 MG TAB PO SCH ×2 (08:22→20:03)
[2016-08-05] MEDS: ENOXAPARIN 40 MG/0.4 ML SYG SC SCH (08:25)
[2016-08-05 09:30] VITALS: BP 159/77; PULSE 80; RESP 18
--- NOTE | 2016-08-05 11:08 | PN ---
Date/Time of Note Date/Time of Note DATE: 08/05/16 TIME: 11:06 Assessment/Plan VTE Prophylaxis VTE Prophylaxis Intervention: LMWH Lines/Catheters IV Catheter Type (from Nrs): [facility] Urinary Cath still in place: No Assessment/Plan Assessment/Plan 1. Left intertrochanteric hip fracture status post ORIF. With impaired mobility/ gait/ADLs. Continue PT/OT. Min assist for bed mobility, mod assist for transfers. 2. Acute postoperative pain syndrome. Continue current pain regimen including prn norco. 3. Hypertension. BP intermittently elevated. Cardiology/internal medicine medically managing. 4. Diabetes. Blood sugars controlled. On metformin and insulin sliding scale per internal medicine. 5. History of left breast carcinoma s/p mastectomy and chemotherapy. 6. Anemia. On iron supplementation. Continue to monitor hemoglobin/hematocrit Subjective 24 Hr Interval Summary Free Text/Dictation Rehab progress note Subjective: No new complaints. Reports some pain in left hip, alleviated with pain medications. ROS: Denies headache, no chest pain, no shortness of breath, no abdominal pain, no vomiting, no chills. Exam/Review of Systems Vital Signs Vitals Vital Signs Date Time Temp Pulse Resp B/P Pulse Ox O2 Delivery O2 Flow Rate FiO2 08/05/16 09:30 80 18 159/77 08/05/16 07:41 98.2 98 08/02/16 10:36 Room Air Intake and Output 08/04/16 08/04/16 08/05/16 15:00 23:00 07:00 Intake Total 600 ml Balance 600 ml Exam General: Awake, alert, no acute distress CV: Regular rate, s1s2 Lungs: Symmetrical air entry bilaterally, no wheezing Abdomen soft, nontender Extremities without cyanosis, no new swelling, left hip surgical site c/d/i with steristrips, no drainage. Neuro: No new focal changes. Wiggles toes on the left. Results Result Diagram: 08/03/16 0602 08/03/16 0602 Results 24 hrs Laboratory Tests Test 08/04/16 12:17 08/04/16 17:21 08/04/16 20:18 08/05/16 07:31 Bedside Glucose 101 100 146 114 Medications Medications Current Medications Acetaminophen (Tylenol Tab) 650 mg Q6H PRN PO PAIN LEVEL 1-3 OR FEVER Last administered on 07/31/16 09:30; Admin Dose 650 MG; Start 07/23/16 at 20:29 Aspirin (Halfprin) 81 mg DAILY PO Last administered on 08/05/16 08:20; Admin Dose 81 MG; Start 07/23/16 at 20:29 Miscellaneous Information 1 ea NOTE XX ; Start 07/23/16 at 20:29 Glucose (Glutose) 15 gm Q15M PRN PO DECREASED GLUCOSE; Start 07/23/16 at 20:29 Glucose (Glutose) 22.5 gm Q15M PRN PO DECREASED GLUCOSE; Start 07/23/16 at 20: 29 Dextrose (D50w Syringe) 25 ml Q15M PRN IV DECREASED GLUCOSE; Start 07/23/16 at 20:29 Dextrose (D50w Syringe) 50 ml Q15M PRN IV DECREASED GLUCOSE; Start 07/23/16 at 20:29 Glucagon (Glucagen) 1 mg Q15M PRN IM DECREASED GLUCOSE; Start 07/23/16 at 20:29 Glucose (Glutose) 15 gm Q15M PRN BUCCAL DECREASED GLUCOSE; Start 07/23/16 at 20 :29 Nalbuphine HCl (Nubain) 2.5 mg Q4H PRN IV PRURITUS; Start 07/23/16 at 20:29 Ondansetron HCl (Zofran Inj) 4 mg Q6H PRN IV NAUSEA AND/OR VOMITING Last administered on 07/27/16 14:57; Admin Dose 4 MG; Start 07/23/16 at 20:29 Naloxone HCl (Narcan) 0.2 mg Q2M PRN IV FOR RESP RATE 8 OR LESS; Start at 20:29 Morphine Sulfate (morphine) 2 mg Q3H PRN IV PAIN Last administered on 10:09; Admin Dose 2 MG; Start 07/23/16 at 20:29 Diagnostic Test (Pha) (Accucheck) 1 ea 02 XX ; Start 07/23/16 at 20:29 Famotidine (Pepcid) 20 mg DAILY PO Last administered on 08/05/16 08:21; Admin Dose 20 MG; Start 07/23/16 at 20:29 Bethanechol Chloride (Urecholine) 25 mg TID PO Last administered on 08/05/16 08:21; Admin Dose 25 MG; Start 07/23/16 at 20:29 Ferrous Sulfate (Ferrous Sulfate (Ec)) 325 mg TID PO Last administered on 08:20; Admin Dose 325 MG; Start 07/23/16 at 20:29 Acetaminophen/ Hydrocodone Bitart ([place] (5/325)) 1 tab Q4H PRN PO PAIN Last administered on 08/05/16 07:05; Admin Dose 1 TAB; Start 07/23/16 at 21:00 Hydralazine HCl (Apresoline) 10 mg Q6 PRN IV SBP>170 Last administered on 06:58; Admin Dose 10 MG; Start 07/24/16 at 12:30 Enoxaparin Sodium (Lovenox) 40 mg DAILY SC Last administered on 08/05/16 08:25 ; Admin Dose 40 MG; Start 07/26/16 at 20:00 Lisinopril (Zestril) 20 mg BID PO Last administered on 08/05/16 08:22; Admin Dose 20 MG; Start 07/27/16 at 21:00 Hydralazine HCl (Apresoline) 50 mg BID PO Last administered on 08/05/16 08:19 ; Admin Dose 50 MG; Start 07/30/16 at 21:00 Carvedilol (Coreg) 12.5 mg BID PO Last administered on 08/05/16 08:20; Admin Dose 12.5 MG; Start 08/03/16 at 21:00 Furosemide (Lasix) 20 mg DAILY PO Last administered on 08/05/16 08:21; Admin Dose 20 MG; Start 08/04/16 at 09:00 NANCIE GALAN Aug 05, 2016 11:08
--- NOTE | 2016-08-05 11:33 | PN ---
Date/Time of Note Date/Time of Note DATE: 08/05/16 TIME: 11:19 Assessment/Plan Lines/Catheters IV Catheter Type (from Nrsg): [facility] Urinary Cath still in place: No Subjective 24 Hr Interval Summary Free Text/Dictation nad, resting in bed, feels better . dw staff Constitutional: improved Eyes: no complaints ENT: no complaints Respiratory: no complaints Cardiovascular: no complaints Gastrointestinal: no complaints Genitourinary: no complaints Musculoskeletal: bone/joint pain Skin: no complaints Neurologic: no complaints Endocrine: no complaints Psychological: no complaints Immunologic: no complaints Exam/Review of Systems Vital Signs Vitals Vital Signs Date Time Temp Pulse Resp B/P Pulse Ox O2 Delivery O2 Flow Rate FiO2 08/05/16 09:30 80 18 159/77 08/05/16 07:41 98.2 98 08/02/16 10:36 Room Air Intake and Output 08/04/16 08/04/16 08/05/16 15:00 23:00 07:00 Intake Total 600 ml Balance 600 ml Exam Constitutional: alert, oriented, well developed Psych: nl mood/affect ENMT: nl external ears & nose Neck: non-tender Respiratory: clear to auscultation Cardiovascular: nl pulses Gastrointestinal: non-tender, soft Musculoskeletal: other Extremities: normal pulses Neurological: nl mental status Lymph: nontender Results Result Diagram: 08/03/16 0602 08/03/16 0602 Results 24 hrs Laboratory Tests Test 08/04/16 12:17 08/04/16 17:21 08/04/16 20:18 08/05/16 07:31 Bedside Glucose 101 100 146 114 Medications Medications Current Medications Acetaminophen (Tylenol Tab) 650 mg Q6H PRN PO PAIN LEVEL 1-3 OR FEVER Last administered on 07/31/16 09:30; Admin Dose 650 MG; Start 07/23/16 at 20:29 Aspirin (Halfprin) 81 mg DAILY PO Last administered on 08/05/16 08:20; Admin Dose 81 MG; Start 07/23/16 at 20:29 Miscellaneous Information 1 ea NOTE XX ; Start 07/23/16 at 20:29 Glucose (Glutose) 15 gm Q15M PRN PO DECREASED GLUCOSE; Start 07/23/16 at 20:29 Glucose (Glutose) 22.5 gm Q15M PRN PO DECREASED GLUCOSE; Start 07/23/16 at 20: 29 Dextrose (D50w Syringe) 25 ml Q15M PRN IV DECREASED GLUCOSE; Start 07/23/16 at 20:29 Dextrose (D50w Syringe) 50 ml Q15M PRN IV DECREASED GLUCOSE; Start 07/23/16 at 20:29 Glucagon (Glucagen) 1 mg Q15M PRN IM DECREASED GLUCOSE; Start 07/23/16 at 20:29 Glucose (Glutose) 15 gm Q15M PRN BUCCAL DECREASED GLUCOSE; Start 07/23/16 at 20 :29 Nalbuphine HCl (Nubain) 2.5 mg Q4H PRN IV PRURITUS; Start 07/23/16 at 20:29 Ondansetron HCl (Zofran Inj) 4 mg Q6H PRN IV NAUSEA AND/OR VOMITING Last administered on 07/27/16 14:57; Admin Dose 4 MG; Start 07/23/16 at 20:29 Naloxone HCl (Narcan) 0.2 mg Q2M PRN IV FOR RESP RATE 8 OR LESS; Start at 20:29 Morphine Sulfate (morphine) 2 mg Q3H PRN IV PAIN Last administered on 10:09; Admin Dose 2 MG; Start 07/23/16 at 20:29 Diagnostic Test (Pha) (Accucheck) 1 ea 02 XX ; Start 07/23/16 at 20:29 Famotidine (Pepcid) 20 mg DAILY PO Last administered on 08/05/16 08:21; Admin Dose 20 MG; Start 07/23/16 at 20:29 Bethanechol Chloride (Urecholine) 25 mg TID PO Last administered on 08/05/16 08:21; Admin Dose 25 MG; Start 07/23/16 at 20:29 Ferrous Sulfate (Ferrous Sulfate (Ec)) 325 mg TID PO Last administered on 08:20; Admin Dose 325 MG; Start 07/23/16 at 20:29 Acetaminophen/ Hydrocodone Bitart ([place] (5/325)) 1 tab Q4H PRN PO PAIN Last administered on 08/05/16 07:05; Admin Dose 1 TAB; Start 07/23/16 at 21:00 Hydralazine HCl (Apresoline) 10 mg Q6 PRN IV SBP>170 Last administered on 06:58; Admin Dose 10 MG; Start 07/24/16 at 12:30 Enoxaparin Sodium (Lovenox) 40 mg DAILY SC Last administered on 08/05/16 08:25 ; Admin Dose 40 MG; Start 07/26/16 at 20:00 Lisinopril (Zestril) 20 mg BID PO Last administered on 08/05/16 08:22; Admin Dose 20 MG; Start 07/27/16 at 21:00 Hydralazine HCl (Apresoline) 50 mg BID PO Last administered on 08/05/16 08:19 ; Admin Dose 50 MG; Start 07/30/16 at 21:00 Carvedilol (Coreg) 12.5 mg BID PO Last administered on 08/05/16 08:20; Admin Dose 12.5 MG; Start 08/03/16 at 21:00 Furosemide (Lasix) 20 mg DAILY PO Last administered on 08/05/16 08:21; Admin Dose 20 MG; Start 08/04/16 at 09:00 ARUNA ANTHONY Aug 05, 2016 11:33
[2016-08-05 20:54] VITALS: BP 192/88; RESP 18
[2016-08-05 21:00] VITALS: BP 189/86; PULSE 82
[2016-08-05 22:00] VITALS: BP 185/82; PULSE 79
[2016-08-05] MEDS: hydrALAzine 20 MG INJ IV PRN (22:02)
[2016-08-05 23:47] VITALS: BP 122/58; PULSE 75
[2016-08-06] MEDS: ACCU-CHEK XX SCH (01:28)
[2016-08-06 07:30] VITALS: BP 178/83; RESP 18
[2016-08-06] MEDS: INSULIN ASPART [NOVOLOG] 3 ML PEN SC SCH ×4 (07:35→20:50)
[2016-08-06] MEDS: metFORMIN 500 MG TAB PO SCH ×4 (08:17→17:36)
[2016-08-06] MEDS: LISINOPRIL 20 MG TAB PO SCH ×2 (08:19→20:49)
[2016-08-06] MEDS: FERROUS SULFATE (EC) 325 MG TAB PO SCH ×3 (08:19→20:49)
[2016-08-06] MEDS: FUROSEMIDE 20 MG TAB PO SCH (08:20)
[2016-08-06] MEDS: BETHANECHOL 25 MG TAB PO SCH ×3 (08:20→20:48)
[2016-08-06 08:21] VITALS: BP 178/83; PULSE 78
[2016-08-06] MEDS: ASPIRIN (EC) 81 MG TAB PO SCH (08:21)
[2016-08-06] MEDS: FAMOTIDINE 20 MG TAB PO SCH (08:26)
[2016-08-06] MEDS: HYDROCODONE/APAP (5/325) TAB PO PRN ×2 (08:27→16:02)
[2016-08-06] MEDS: ENOXAPARIN 40 MG/0.4 ML SYG SC SCH (08:29)
[2016-08-06 09:30] VITALS: BP 140/78; PULSE 79
--- NOTE | 2016-08-06 11:41 | CONS ---
Date/Time of Note Date/Time of Note DATE: 08/06/16 TIME: 11:39 Assessment/Plan Assessment/Plan Additional Assessment/Plan Hip fracture status post surgical repair Preserved ejection fraction Hypertension, improved Diabetes Breast cancer -Blood pressure still uncontrolled even with increased dosing of medications. Would start Procardia. Watch closely for lower extremity edema (patient had edema with Norvasc). Check labs Consultation Date/Type/Reason Admit Date/Time Jul 23, 2016 at 19:40 Type of Consultation: cv 24 HR Interval Summary Free Text/Dictation Denies chest pain, shortness of breath. Complains of fatigue with ambulation Exam/Review of Systems Vital Signs Vitals Vital Signs Date Time Temp Pulse Resp B/P Pulse Ox O2 Delivery O2 Flow Rate FiO2 08/05/16 23:47 75 122/58 08/05/16 20:54 98.5 18 97 08/02/16 10:36 Room Air Intake and Output 08/05/16 08/05/16 08/06/16 15:00 23:00 07:00 Intake Total 480 ml 240 ml 280 ml Output Total 200 ml Balance 280 ml 240 ml 280 ml Exam Sitting in wheelchair Constitutional: alert, frail, oriented Head: normocephalic Neck: supple Respiratory: other (Coarse breath sounds bilaterally, no wheezing) Cardiovascular: other (S1-S2 heard), regular rate and rhythm Gastrointestinal: bowel sounds, non-tender, other (No guarding), soft Extremities: edema (Trace), other (No cyanosis) Results Result Diagram: 08/03/16 0602 08/03/16 0602 Results 24 hrs Laboratory Tests Test 08/05/16 11:55 08/05/16 16:39 08/05/16 19:58 08/06/16 07:48 Bedside Glucose 92 100 113 105 Medications Medications Current Medications Acetaminophen (Tylenol Tab) 650 mg Q6H PRN PO PAIN LEVEL 1-3 OR FEVER Last administered on 07/31/16 09:30; Admin Dose 650 MG; Start 07/23/16 at 20:29 Aspirin (Halfprin) 81 mg DAILY PO Last administered on 08/06/16 08:21; Admin Dose 81 MG; Start 07/23/16 at 20:29 Miscellaneous Information 1 ea NOTE XX ; Start 07/23/16 at 20:29 Glucose (Glutose) 15 gm Q15M PRN PO DECREASED GLUCOSE; Start 07/23/16 at 20:29 Glucose (Glutose) 22.5 gm Q15M PRN PO DECREASED GLUCOSE; Start 07/23/16 at 20: 29 Dextrose (D50w Syringe) 25 ml Q15M PRN IV DECREASED GLUCOSE; Start 07/23/16 at 20:29 Dextrose (D50w Syringe) 50 ml Q15M PRN IV DECREASED GLUCOSE; Start 07/23/16 at 20:29 Glucagon (Glucagen) 1 mg Q15M PRN IM DECREASED GLUCOSE; Start 07/23/16 at 20:29 Glucose (Glutose) 15 gm Q15M PRN BUCCAL DECREASED GLUCOSE; Start 07/23/16 at 20 :29 Nalbuphine HCl (Nubain) 2.5 mg Q4H PRN IV PRURITUS; Start 07/23/16 at 20:29 Ondansetron HCl (Zofran Inj) 4 mg Q6H PRN IV NAUSEA AND/OR VOMITING Last administered on 07/27/16 14:57; Admin Dose 4 MG; Start 07/23/16 at 20:29 Naloxone HCl (Narcan) 0.2 mg Q2M PRN IV FOR RESP RATE 8 OR LESS; Start at 20:29 Morphine Sulfate (morphine) 2 mg Q3H PRN IV PAIN Last administered on 10:09; Admin Dose 2 MG; Start 07/23/16 at 20:29 Diagnostic Test (Pha) (Accucheck) 1 ea 02 XX ; Start 07/23/16 at 20:29 Famotidine (Pepcid) 20 mg DAILY PO Last administered on 08/06/16 08:26; Admin Dose 20 MG; Start 07/23/16 at 20:29 Bethanechol Chloride (Urecholine) 25 mg TID PO Last administered on 08/06/16 08:20; Admin Dose 25 MG; Start 07/23/16 at 20:29 Ferrous Sulfate (Ferrous Sulfate (Ec)) 325 mg TID PO Last administered on 08:19; Admin Dose 325 MG; Start 07/23/16 at 20:29 Acetaminophen/ Hydrocodone Bitart ([place] (5/325)) 1 tab Q4H PRN PO PAIN Last administered on 08/06/16 08:27; Admin Dose 1 TAB; Start 07/23/16 at 21:00 Hydralazine HCl (Apresoline) 10 mg Q6 PRN IV SBP>170 Last administered on 22:02; Admin Dose 10 MG; Start 07/24/16 at 12:30 Enoxaparin Sodium (Lovenox) 40 mg DAILY SC Last administered on 08/06/16 08:29 ; Admin Dose 40 MG; Start 07/26/16 at 20:00 Lisinopril (Zestril) 20 mg BID PO Last administered on 08/06/16 08:19; Admin Dose 20 MG; Start 07/27/16 at 21:00 Hydralazine HCl (Apresoline) 50 mg BID PO Last administered on 08/06/16 08:21 ; Admin Dose 50 MG; Start 07/30/16 at 21:00 Carvedilol (Coreg) 12.5 mg BID PO Last administered on 08/06/16 08:21; Admin Dose 12.5 MG; Start 08/03/16 at 21:00 Furosemide (Lasix) 20 mg DAILY PO Last administered on 08/06/16 08:20; Admin Dose 20 MG; Start 08/04/16 at 09:00 Jose Hunt DO Aug 06, 2016 11:41
[2016-08-06] MEDS: NIFEdipine (XL) 30 MG TAB PO SCH (12:32)
--- NOTE | 2016-08-06 13:31 | CONS ---
Date/Time of Note Date/Time of Note DATE: 08/06/16 TIME: Consult Date/Type/Reason Admit Date/Time Jul 23, 2016 at 19:40 Type of Consultation: cv Subjective Improving Objective Vital Signs Date Time Temp Pulse Resp B/P Pulse Ox O2 Delivery O2 Flow Rate FiO2 08/05/16 23:47 75 122/58 08/05/16 20:54 98.5 18 97 08/02/16 10:36 Room Air Intake and Output 08/05/16 08/05/16 08/06/16 14:59 22:59 06:59 Intake Total 480 ml 240 ml 280 ml Output Total 200 ml Balance 280 ml 240 ml 280 ml INTERDISCIPLINARY TEAM CONFERENCE BOWEL- Cont BLADDER-Cont SKIN- intact OT- DRESSING-min BATHING-min TOILETING-min PT- BED MOBILITY-min TRANSFERS-min AMBULATION-mod W.C. MOBILITY-sba A/P- Interdisciplinary team conference held today. Please see interdisciplinary sheet. Working toward d.c. on 08/10 with post discharge follow up of physical therapy, occupational therapy. Results/Medications Result Diagram: 08/03/16 0602 08/03/16 0602 Results 24 hrs Laboratory Tests Test 08/05/16 16:39 08/05/16 19:58 08/06/16 07:48 08/06/16 11:52 Bedside Glucose 100 113 105 95 Medications Current Medications Acetaminophen (Tylenol Tab) 650 mg Q6H PRN PO PAIN LEVEL 1-3 OR FEVER Last administered on 07/31/16 09:30; Admin Dose 650 MG; Start 07/23/16 at 20:29 Aspirin (Halfprin) 81 mg DAILY PO Last administered on 08/06/16 08:21; Admin Dose 81 MG; Start 07/23/16 at 20:29 Miscellaneous Information 1 ea NOTE XX ; Start 07/23/16 at 20:29 Glucose (Glutose) 15 gm Q15M PRN PO DECREASED GLUCOSE; Start 07/23/16 at 20:29 Glucose (Glutose) 22.5 gm Q15M PRN PO DECREASED GLUCOSE; Start 07/23/16 at 20: 29 Dextrose (D50w Syringe) 25 ml Q15M PRN IV DECREASED GLUCOSE; Start 07/23/16 at 20:29 Dextrose (D50w Syringe) 50 ml Q15M PRN IV DECREASED GLUCOSE; Start 07/23/16 at 20:29 Glucagon (Glucagen) 1 mg Q15M PRN IM DECREASED GLUCOSE; Start 07/23/16 at 20:29 Glucose (Glutose) 15 gm Q15M PRN BUCCAL DECREASED GLUCOSE; Start 07/23/16 at 20 :29 Nalbuphine HCl (Nubain) 2.5 mg Q4H PRN IV PRURITUS; Start 07/23/16 at 20:29 Ondansetron HCl (Zofran Inj) 4 mg Q6H PRN IV NAUSEA AND/OR VOMITING Last administered on 07/27/16 14:57; Admin Dose 4 MG; Start 07/23/16 at 20:29 Naloxone HCl (Narcan) 0.2 mg Q2M PRN IV FOR RESP RATE 8 OR LESS; Start at 20:29 Morphine Sulfate (morphine) 2 mg Q3H PRN IV PAIN Last administered on 10:09; Admin Dose 2 MG; Start 07/23/16 at 20:29 Diagnostic Test (Pha) (Accucheck) 1 ea 02 XX ; Start 07/23/16 at 20:29 Famotidine (Pepcid) 20 mg DAILY PO Last administered on 08/06/16 08:26; Admin Dose 20 MG; Start 07/23/16 at 20:29 Bethanechol Chloride (Urecholine) 25 mg TID PO Last administered on 08/06/16 08:20; Admin Dose 25 MG; Start 07/23/16 at 20:29 Ferrous Sulfate (Ferrous Sulfate (Ec)) 325 mg TID PO Last administered on 08:19; Admin Dose 325 MG; Start 07/23/16 at 20:29 Acetaminophen/ Hydrocodone Bitart ([place] (5/325)) 1 tab Q4H PRN PO PAIN Last administered on 08/06/16 08:27; Admin Dose 1 TAB; Start 07/23/16 at 21:00 Hydralazine HCl (Apresoline) 10 mg Q6 PRN IV SBP>170 Last administered on 22:02; Admin Dose 10 MG; Start 07/24/16 at 12:30 Enoxaparin Sodium (Lovenox) 40 mg DAILY SC Last administered on 08/06/16 08:29 ; Admin Dose 40 MG; Start 07/26/16 at 20:00 Lisinopril (Zestril) 20 mg BID PO Last administered on 08/06/16 08:19; Admin Dose 20 MG; Start 07/27/16 at 21:00 Hydralazine HCl (Apresoline) 50 mg BID PO Last administered on 08/06/16 08:21 ; Admin Dose 50 MG; Start 07/30/16 at 21:00 Carvedilol (Coreg) 12.5 mg BID PO Last administered on 08/06/16 08:21; Admin Dose 12.5 MG; Start 08/03/16 at 21:00 Furosemide (Lasix) 20 mg DAILY PO Last administered on 08/06/16 08:20; Admin Dose 20 MG; Start 08/04/16 at 09:00 Nifedipine (Procardia Xl) 30 mg DAILY PO Last administered on 08/06/16 12:32; Admin Dose 30 MG; Start 08/06/16 at 12:00 NEENA BOYLE MD Aug 06, 2016 13:31
--- NOTE | 2016-08-06 19:27 | PN ---
Date/Time of Note Date/Time of Note DATE: 08/06/16 TIME: 19:25 Assessment/Plan VTE Prophylaxis VTE Prophylaxis Intervention: SCD's Lines/Catheters [facility] Urinary Cath still in place: No Assessment/Plan Chief Complaint/Hosp Course Assessment/Plan - Intertrochanteric fracture of the left hip. S/p ORIF of the left hip 07/[address] Anderson, orthopedic surgery. Continue PT. continue pain management. - Breast cancer, status post left breast mastectomy and chemotherapy - Diabetes mellitus type 2, continue metformin and NovoLog from mild algorithm sliding scale - Hypertension, continue lisinopril, Coreg, hydralazine, Procardia. Dr. Hunt is following in cardiology consultation. Continue to optimize blood pressure medication per cardiology. Further recommendations based on clinical course. Plan of care discussed with Dr. Hinds. Problems: Subjective 24 Hr Interval Summary Free Text/Dictation Patient looks comfortable, continues to work with physical therapy, still has episodes of elevated blood pressure, which is currently stable, pain is well controlled with [place]. Exam/Review of Systems Vital Signs Vitals Vital Signs Date Time Temp Pulse Resp B/P Pulse Ox O2 Delivery O2 Flow Rate FiO2 08/06/16 09:30 79 140/78 08/06/16 07:30 98.4 18 99 08/02/16 10:36 Room Air Intake and Output 08/05/16 08/05/16 08/06/16 14:59 22:59 06:59 Intake Total 480 ml 240 ml 280 ml Output Total 200 ml Balance 280 ml 240 ml 280 ml Exam PHYSICAL ASSESSMENT: GENERAL: Well-developed, obese gentleman. Currently, he is awake, alert, in no acute distress. HEENT: Head is atraumatic, normocephalic. PERRLA. NECK: Supple. No cervical lymphadenopathy, no thyromegaly. CHEST: Lungs clear, both slightly diminished at the bases. There are no rhonchi, wheezes noted. CARDIOVASCULAR: Normal S1, S2. No murmurs, gallops, clicks, rubs noted. ABDOMEN: Protuberant, soft, nondistended, nontender. Bowel sounds present. EXTREMITIES: The patient has mild edema, 1+. No clubbing, no cyanosis. Pulses equal bilaterally 2+. SKIN: There is no rash, petechiae noted. NEUROLOGIC: The patient is awake, alert, and oriented x4 Results Result Diagram: 08/03/16 0602 08/03/16 0602 Results 24 hrs Laboratory Tests Test 08/05/16 19:58 08/06/16 07:48 08/06/16 11:52 08/06/16 17:34 Bedside Glucose 113 105 95 119 Medications Medications Current Medications Acetaminophen (Tylenol Tab) 650 mg Q6H PRN PO PAIN LEVEL 1-3 OR FEVER Last administered on 07/31/16 09:30; Admin Dose 650 MG; Start 07/23/16 at 20:29 Aspirin (Halfprin) 81 mg DAILY PO Last administered on 08/06/16 08:21; Admin Dose 81 MG; Start 07/23/16 at 20:29 Miscellaneous Information 1 ea NOTE XX ; Start 07/23/16 at 20:29 Glucose (Glutose) 15 gm Q15M PRN PO DECREASED GLUCOSE; Start 07/23/16 at 20:29 Glucose (Glutose) 22.5 gm Q15M PRN PO DECREASED GLUCOSE; Start 07/23/16 at 20: 29 Dextrose (D50w Syringe) 25 ml Q15M PRN IV DECREASED GLUCOSE; Start 07/23/16 at 20:29 Dextrose (D50w Syringe) 50 ml Q15M PRN IV DECREASED GLUCOSE; Start 07/23/16 at 20:29 Glucagon (Glucagen) 1 mg Q15M PRN IM DECREASED GLUCOSE; Start 07/23/16 at 20:29 Glucose (Glutose) 15 gm Q15M PRN BUCCAL DECREASED GLUCOSE; Start 07/23/16 at 20 :29 Nalbuphine HCl (Nubain) 2.5 mg Q4H PRN IV PRURITUS; Start 07/23/16 at 20:29 Ondansetron HCl (Zofran Inj) 4 mg Q6H PRN IV NAUSEA AND/OR VOMITING Last administered on 07/27/16 14:57; Admin Dose 4 MG; Start 07/23/16 at 20:29 Naloxone HCl (Narcan) 0.2 mg Q2M PRN IV FOR RESP RATE 8 OR LESS; Start at 20:29 Morphine Sulfate (morphine) 2 mg Q3H PRN IV PAIN Last administered on 10:09; Admin Dose 2 MG; Start 07/23/16 at 20:29 Diagnostic Test (Pha) (Accucheck) 1 ea 02 XX ; Start 07/23/16 at 20:29 Famotidine (Pepcid) 20 mg DAILY PO Last administered on 08/06/16 08:26; Admin Dose 20 MG; Start 07/23/16 at 20:29 Bethanechol Chloride (Urecholine) 25 mg TID PO Last administered on 08/06/16 15:45; Admin Dose 25 MG; Start 07/23/16 at 20:29 Ferrous Sulfate (Ferrous Sulfate (Ec)) 325 mg TID PO Last administered on 15:46; Admin Dose 325 MG; Start 07/23/16 at 20:29 Acetaminophen/ Hydrocodone Bitart ([place] (5/325)) 1 tab Q4H PRN PO PAIN Last administered on 08/06/16 16:02; Admin Dose 1 TAB; Start 07/23/16 at 21:00 Hydralazine HCl (Apresoline) 10 mg Q6 PRN IV SBP>170 Last administered on 22:02; Admin Dose 10 MG; Start 07/24/16 at 12:30 Enoxaparin Sodium (Lovenox) 40 mg DAILY SC Last administered on 08/06/16 08:29 ; Admin Dose 40 MG; Start 07/26/16 at 20:00 Lisinopril (Zestril) 20 mg BID PO Last administered on 08/06/16 08:19; Admin Dose 20 MG; Start 07/27/16 at 21:00 Hydralazine HCl (Apresoline) 50 mg BID PO Last administered on 08/06/16 08:21 ; Admin Dose 50 MG; Start 07/30/16 at 21:00 Carvedilol (Coreg) 12.5 mg BID PO Last administered on 08/06/16 08:21; Admin Dose 12.5 MG; Start 08/03/16 at 21:00 Furosemide (Lasix) 20 mg DAILY PO Last administered on 08/06/16 08:20; Admin Dose 20 MG; Start 08/04/16 at 09:00 Nifedipine (Procardia Xl) 30 mg DAILY PO Last administered on 08/06/16 12:32; Admin Dose 30 MG; Start 08/06/16 at 12:00 ERICK PRICE Aug 06, 2016 19:27
[2016-08-06 20:00] VITALS: BP 183/86; RESP 18
[2016-08-06 23:00] VITALS: BP 121/57
[2016-08-07] MEDS: ACCU-CHEK XX SCH (02:00)
[2016-08-07 06:41] LABS: ADD SCAN DIFF NO
[2016-08-07 06:57] LABS: BASOPHILS % 0.5 % (0.0-2.0); EOSINOPHILS # 0.3 10^3/ul (0.0-0.5); EOSINOPHILS % 6.6 % (0.0-7.0); HEMATOCRIT 29.7 % (37.0-47.0); HEMOGLOBIN 9.6 g/dl (12.0-16.0); LYMPHOCYTES # 1.3 10^3/ul (0.8-2.9); LYMPHOCYTES % 31.7 % (15.0-51.0); MEAN CORPUSCULAR HEMOGLOBIN 30.7 pg (29.0-33.0); MEAN CORPUSCULAR HGB CONC 32.3 g/dl (32.0-37.0); MEAN CORPUSCULAR VOLUME 94.9 fl (82.0-101.0); MEAN PLATELET VOLUME 8.6 fl (7.4-10.4); MONOCYTE # 0.3 10^3/ul (0.3-0.9); MONOCYTES % 8.3 % (0.0-11.0); NEUTROPHIL # 2.2 10^3/ul (1.6-7.5); NEUTROPHILS % 52.7 % (39.0-77.0); PLATELET COUNT 381 10^3/UL (140-415); RED BLOOD COUNT 3.13 10^6/ul (4.20-5.40); RED CELL DISTRIBUTION WIDTH 13.5 % (11.5-14.5); WHITE BLOOD COUNT 4.1 10^3/ul (4.8-10.8)
[2016-08-07] MEDS: INSULIN ASPART [NOVOLOG] 3 ML PEN SC SCH ×4 (07:35→21:00)
[2016-08-07 07:59] LABS: POTASSIUM 4.2 mmol/L (3.5-5.1)
[2016-08-07 08:01] LABS: CREATININE 0.81 mg/dl (0.44-1.00)
[2016-08-07 08:02] LABS: CALCIUM 9.2 mg/dl (8.4-10.2)
[2016-08-07 08:12] VITALS: BP 165/78; RESP 18
[2016-08-07] MEDS: ASPIRIN (EC) 81 MG TAB PO SCH (08:41)
[2016-08-07] MEDS: LISINOPRIL 20 MG TAB PO SCH ×2 (08:42→20:19)
[2016-08-07] MEDS: FUROSEMIDE 20 MG TAB PO SCH (08:42)
[2016-08-07] MEDS: FAMOTIDINE 20 MG TAB PO SCH (08:42)
[2016-08-07] MEDS: BETHANECHOL 25 MG TAB PO SCH ×3 (08:43→20:18)
[2016-08-07] MEDS: FERROUS SULFATE (EC) 325 MG TAB PO SCH ×3 (08:43→20:18)
[2016-08-07] MEDS: NIFEdipine (XL) 30 MG TAB PO SCH (08:43)
[2016-08-07] MEDS: HYDROCODONE/APAP (5/325) TAB PO PRN ×3 (08:43→20:18)
[2016-08-07] MEDS: ENOXAPARIN 40 MG/0.4 ML SYG SC SCH (08:50)
--- NOTE | 2016-08-07 10:54 | CONS ---
Date/Time of Note Date/Time of Note DATE: 08/07/16 TIME: 10:54 Consult Date/Type/Reason Admit Date/Time Jul 23, 2016 at 19:40 Type of Consultation: cv Subjective Motivated Objective pulm-cta abd-soft min transfer Vital Signs Date Time Temp Pulse Resp B/P Pulse Ox O2 Delivery O2 Flow Rate FiO2 08/07/16 08:12 98.8 79 18 165/78 99 Intake and Output 08/06/16 08/06/16 08/07/16 14:59 22:59 06:59 Intake Total 500 ml 860 ml 150 ml Output Total 1 ml Balance 500 ml 859 ml 150 ml Results/Medications Result Diagram: 08/07/16 0605 08/07/16 0605 Results 24 hrs Laboratory Tests Test 08/06/16 11:52 08/06/16 17:34 08/06/16 20:02 08/07/16 06:05 Bedside Glucose 95 119 111 White Blood Count 4.1 #L Red Blood Count 3.13 L Hemoglobin 9.6 L Hematocrit 29.7 L Mean Corpuscular Volume 94.9 Mean Corpuscular Hemoglobin 30.7 Mean Corpuscular Hemoglobin Concent 32.3 Red Cell Distribution Width 13.5 Platelet Count 381 # Mean Platelet Volume 8.6 Neutrophils % 52.7 Lymphocytes % 31.7 Monocytes % 8.3 Eosinophils % 6.6 Basophils % 0.5 Nucleated Red Blood Cells % 0.0 Neutrophils # 2.2 Lymphocytes # 1.3 Monocytes # 0.3 Eosinophils # 0.3 Basophils # 0.0 Nucleated Red Blood Cells # 0.0 Sodium Level 133 L Potassium Level 4.2 Chloride Level 95 L Carbon Dioxide Level 32 H Anion Gap 10 Blood Urea Nitrogen 35 H Creatinine 0.81 Glucose Level 102 Calcium Level 9.2 Magnesium Level 1.8 Test 08/07/16 07:43 Bedside Glucose 110 Medications Current Medications Acetaminophen (Tylenol Tab) 650 mg Q6H PRN PO PAIN LEVEL 1-3 OR FEVER Last administered on 07/31/16 09:30; Admin Dose 650 MG; Start 07/23/16 at 20:29 Aspirin (Halfprin) 81 mg DAILY PO Last administered on 08/07/16 08:41; Admin Dose 81 MG; Start 07/23/16 at 20:29 Miscellaneous Information 1 ea NOTE XX ; Start 07/23/16 at 20:29 Glucose (Glutose) 15 gm Q15M PRN PO DECREASED GLUCOSE; Start 07/23/16 at 20:29 Glucose (Glutose) 22.5 gm Q15M PRN PO DECREASED GLUCOSE; Start 07/23/16 at 20: 29 Dextrose (D50w Syringe) 25 ml Q15M PRN IV DECREASED GLUCOSE; Start 07/23/16 at 20:29 Dextrose (D50w Syringe) 50 ml Q15M PRN IV DECREASED GLUCOSE; Start 07/23/16 at 20:29 Glucagon (Glucagen) 1 mg Q15M PRN IM DECREASED GLUCOSE; Start 07/23/16 at 20:29 Glucose (Glutose) 15 gm Q15M PRN BUCCAL DECREASED GLUCOSE; Start 07/23/16 at 20 :29 Nalbuphine HCl (Nubain) 2.5 mg Q4H PRN IV PRURITUS; Start 07/23/16 at 20:29 Ondansetron HCl (Zofran Inj) 4 mg Q6H PRN IV NAUSEA AND/OR VOMITING Last administered on 07/27/16 14:57; Admin Dose 4 MG; Start 07/23/16 at 20:29 Naloxone HCl (Narcan) 0.2 mg Q2M PRN IV FOR RESP RATE 8 OR LESS; Start at 20:29 Morphine Sulfate (morphine) 2 mg Q3H PRN IV PAIN Last administered on 10:09; Admin Dose 2 MG; Start 07/23/16 at 20:29 Diagnostic Test (Pha) (Accucheck) 1 ea 02 XX ; Start 07/23/16 at 20:29 Famotidine (Pepcid) 20 mg DAILY PO Last administered on 08/07/16 08:42; Admin Dose 20 MG; Start 07/23/16 at 20:29 Bethanechol Chloride (Urecholine) 25 mg TID PO Last administered on 08/07/16 08:43; Admin Dose 25 MG; Start 07/23/16 at 20:29 Ferrous Sulfate (Ferrous Sulfate (Ec)) 325 mg TID PO Last administered on 08:43; Admin Dose 325 MG; Start 07/23/16 at 20:29 Acetaminophen/ Hydrocodone Bitart ([place] (5/325)) 1 tab Q4H PRN PO PAIN Last administered on 08/07/16 08:43; Admin Dose 1 TAB; Start 07/23/16 at 21:00 Hydralazine HCl (Apresoline) 10 mg Q6 PRN IV SBP>170 Last administered on 22:02; Admin Dose 10 MG; Start 07/24/16 at 12:30 Enoxaparin Sodium (Lovenox) 40 mg DAILY SC Last administered on 08/07/16 08:50 ; Admin Dose 40 MG; Start 07/26/16 at 20:00 Lisinopril (Zestril) 20 mg BID PO Last administered on 08/07/16 08:42; Admin Dose 20 MG; Start 07/27/16 at 21:00 Hydralazine HCl (Apresoline) 50 mg BID PO Last administered on 08/07/16 08:43 ; Admin Dose 50 MG; Start 07/30/16 at 21:00 Carvedilol (Coreg) 12.5 mg BID PO Last administered on 08/07/16 08:43; Admin Dose 12.5 MG; Start 08/03/16 at 21:00 Furosemide (Lasix) 20 mg DAILY PO Last administered on 08/07/16 08:42; Admin Dose 20 MG; Start 08/04/16 at 09:00 Nifedipine (Procardia Xl) 30 mg DAILY PO Last administered on 08/07/16 08:43; Admin Dose 30 MG; Start 08/06/16 at 12:00 Assessment/Plan Additional Assessment/Plan Rehab- Left intertrochanteric hip fracture status post ORIF. Continue rehab activities and family training Acute pain syndrome-improving Hypertension. diabetes. Left breast carcinoma with history of mastectomy and chemotherapy NEENA BOYLE MD Aug 07, 2016 10:54
[2016-08-07] MEDS: metFORMIN 500 MG TAB PO SCH ×2 (12:00→17:36)
[2016-08-07 13:00] VITALS: BP 140/80; PULSE 88
--- NOTE | 2016-08-07 18:39 | PN ---
Date/Time of Note Date/Time of Note DATE: 08/07/16 TIME: 18:37 Assessment/Plan VTE Prophylaxis VTE Prophylaxis Intervention: SCD's Lines/Catheters [facility] Sal[facility] Urinary Cath still in place: No Assessment/Plan Chief Complaint/Hosp Course Assessment/Plan - Intertrochanteric fracture of the left hip. S/p ORIF of the left hip 07/[address] Anderson, orthopedic surgery. Continue PT. continue pain management. - Breast cancer, status post left breast mastectomy and chemotherapy - Diabetes mellitus type 2, continue metformin and NovoLog from mild algorithm sliding scale - Hypertension, continue lisinopril, Coreg, hydralazine, Procardia. Dr. Hunt is following in cardiology consultation. Continue to optimize blood pressure medication per cardiology. Further recommendations based on clinical course. Plan of care discussed with Dr. Hinds. Problems: Subjective 24 Hr Interval Summary Free Text/Dictation Blood pressure is better controlled today, patient continues to work with physical therapy, pain is well controlled. Exam/Review of Systems Vital Signs Vitals Vital Signs Date Time Temp Pulse Resp B/P Pulse Ox O2 Delivery O2 Flow Rate FiO2 08/07/16 13:00 88 140/80 08/07/16 08:12 98.8 18 99 Intake and Output 08/06/16 08/06/16 08/07/16 15:00 23:00 07:00 Intake Total 500 ml 860 ml 150 ml Output Total 1 ml Balance 500 ml 859 ml 150 ml Exam PHYSICAL ASSESSMENT: GENERAL: Well-developed, obese gentleman. Currently, he is awake, alert, in no acute distress. HEENT: Head is atraumatic, normocephalic. PERRLA. NECK: Supple. No cervical lymphadenopathy, no thyromegaly. CHEST: Lungs clear, both slightly diminished at the bases. There are no rhonchi, wheezes noted. CARDIOVASCULAR: Normal S1, S2. No murmurs, gallops, clicks, rubs noted. ABDOMEN: Protuberant, soft, nondistended, nontender. Bowel sounds present. EXTREMITIES: The patient has mild edema, 1+. No clubbing, no cyanosis. Pulses equal bilaterally 2+. SKIN: There is no rash, petechiae noted. NEUROLOGIC: The patient is awake, alert, and oriented x4 Results Result Diagram: 08/07/16 0605 08/07/16 0605 Results 24 hrs Laboratory Tests Test 08/06/16 20:02 08/07/16 06:05 08/07/16 07:43 08/07/16 11:55 Bedside Glucose 111 110 115 White Blood Count 4.1 #L Red Blood Count 3.13 L Hemoglobin 9.6 L Hematocrit 29.7 L Mean Corpuscular Volume 94.9 Mean Corpuscular Hemoglobin 30.7 Mean Corpuscular Hemoglobin Concent 32.3 Red Cell Distribution Width 13.5 Platelet Count 381 # Mean Platelet Volume 8.6 Neutrophils % 52.7 Lymphocytes % 31.7 Monocytes % 8.3 Eosinophils % 6.6 Basophils % 0.5 Nucleated Red Blood Cells % 0.0 Neutrophils # 2.2 Lymphocytes # 1.3 Monocytes # 0.3 Eosinophils # 0.3 Basophils # 0.0 Nucleated Red Blood Cells # 0.0 Sodium Level 133 L Potassium Level 4.2 Chloride Level 95 L Carbon Dioxide Level 32 H Anion Gap 10 Blood Urea Nitrogen 35 H Creatinine 0.81 Glucose Level 102 Calcium Level 9.2 Magnesium Level 1.8 Medications Medications Current Medications Acetaminophen (Tylenol Tab) 650 mg Q6H PRN PO PAIN LEVEL 1-3 OR FEVER Last administered on 07/31/16 09:30; Admin Dose 650 MG; Start 07/23/16 at 20:29 Aspirin (Halfprin) 81 mg DAILY PO Last administered on 08/07/16 08:41; Admin Dose 81 MG; Start 07/23/16 at 20:29 Miscellaneous Information 1 ea NOTE XX ; Start 07/23/16 at 20:29 Glucose (Glutose) 15 gm Q15M PRN PO DECREASED GLUCOSE; Start 07/23/16 at 20:29 Glucose (Glutose) 22.5 gm Q15M PRN PO DECREASED GLUCOSE; Start 07/23/16 at 20: 29 Dextrose (D50w Syringe) 25 ml Q15M PRN IV DECREASED GLUCOSE; Start 07/23/16 at 20:29 Dextrose (D50w Syringe) 50 ml Q15M PRN IV DECREASED GLUCOSE; Start 07/23/16 at 20:29 Glucagon (Glucagen) 1 mg Q15M PRN IM DECREASED GLUCOSE; Start 07/23/16 at 20:29 Glucose (Glutose) 15 gm Q15M PRN BUCCAL DECREASED GLUCOSE; Start 07/23/16 at 20 :29 Nalbuphine HCl (Nubain) 2.5 mg Q4H PRN IV PRURITUS; Start 07/23/16 at 20:29 Ondansetron HCl (Zofran Inj) 4 mg Q6H PRN IV NAUSEA AND/OR VOMITING Last administered on 07/27/16 14:57; Admin Dose 4 MG; Start 07/23/16 at 20:29 Naloxone HCl (Narcan) 0.2 mg Q2M PRN IV FOR RESP RATE 8 OR LESS; Start at 20:29 Morphine Sulfate (morphine) 2 mg Q3H PRN IV PAIN Last administered on 10:09; Admin Dose 2 MG; Start 07/23/16 at 20:29 Diagnostic Test (Pha) (Accucheck) 1 ea 02 XX ; Start 07/23/16 at 20:29 Famotidine (Pepcid) 20 mg DAILY PO Last administered on 08/07/16 08:42; Admin Dose 20 MG; Start 07/23/16 at 20:29 Bethanechol Chloride (Urecholine) 25 mg TID PO Last administered on 08/07/16 14:26; Admin Dose 25 MG; Start 07/23/16 at 20:29 Ferrous Sulfate (Ferrous Sulfate (Ec)) 325 mg TID PO Last administered on 14:26; Admin Dose 325 MG; Start 07/23/16 at 20:29 Acetaminophen/ Hydrocodone Bitart ([place] (5/325)) 1 tab Q4H PRN PO PAIN Last administered on 08/07/16 14:29; Admin Dose 1 TAB; Start 07/23/16 at 21:00 Hydralazine HCl (Apresoline) 10 mg Q6 PRN IV SBP>170 Last administered on 22:02; Admin Dose 10 MG; Start 07/24/16 at 12:30 Enoxaparin Sodium (Lovenox) 40 mg DAILY SC Last administered on 08/07/16 08:50 ; Admin Dose 40 MG; Start 07/26/16 at 20:00 Lisinopril (Zestril) 20 mg BID PO Last administered on 08/07/16 08:42; Admin Dose 20 MG; Start 07/27/16 at 21:00 Hydralazine HCl (Apresoline) 50 mg BID PO Last administered on 08/07/16 08:43 ; Admin Dose 50 MG; Start 07/30/16 at 21:00 Carvedilol (Coreg) 12.5 mg BID PO Last administered on 08/07/16 08:43; Admin Dose 12.5 MG; Start 08/03/16 at 21:00 Furosemide (Lasix) 20 mg DAILY PO Last administered on 08/07/16 08:42; Admin Dose 20 MG; Start 08/04/16 at 09:00 Nifedipine (Procardia Xl) 30 mg DAILY PO Last administered on 08/07/16 08:43; Admin Dose 30 MG; Start 08/06/16 at 12:00 ERICK PRICE Aug 07, 2016 18:38
[2016-08-08] MEDS: ACCU-CHEK XX SCH (02:00)
[2016-08-08] MEDS: INSULIN ASPART [NOVOLOG] 3 ML PEN SC SCH ×4 (07:35→21:00)
[2016-08-08] MEDS: metFORMIN 500 MG TAB PO SCH ×3 (07:57→17:24)
[2016-08-08] MEDS: FERROUS SULFATE (EC) 325 MG TAB PO SCH ×3 (09:08→20:27)
[2016-08-08] MEDS: ASPIRIN (EC) 81 MG TAB PO SCH (09:09)
[2016-08-08] MEDS: FAMOTIDINE 20 MG TAB PO SCH (09:09)
[2016-08-08] MEDS: NIFEdipine (XL) 30 MG TAB PO SCH (09:09)
[2016-08-08] MEDS: LISINOPRIL 20 MG TAB PO SCH ×2 (09:10→20:27)
[2016-08-08] MEDS: FUROSEMIDE 20 MG TAB PO SCH (09:10)
[2016-08-08] MEDS: BETHANECHOL 25 MG TAB PO SCH ×3 (09:10→20:27)
[2016-08-08] MEDS: HYDROCODONE/APAP (5/325) TAB PO PRN ×2 (09:11→17:23)
[2016-08-08] MEDS: ENOXAPARIN 40 MG/0.4 ML SYG SC SCH (09:11)
[2016-08-08 10:00] VITALS: BP 164/70; RESP 18
--- NOTE | 2016-08-08 12:40 | CONS ---
Date/Time of Note Date/Time of Note DATE: 08/08/16 TIME: 12:40 Consult Date/Type/Reason Admit Date/Time Jul 23, 2016 at 19:40 Type of Consultation: cv Subjective Up for activities Objective pulm-cta abd-soft min transfers sba wc mobility Vital Signs Date Time Temp Pulse Resp B/P Pulse Ox O2 Delivery O2 Flow Rate FiO2 08/08/16 10:00 98.7 78 18 164/70 97 Intake and Output 08/07/16 08/07/16 08/08/16 14:59 22:59 06:59 Intake Total 480 ml 600 ml 300 ml Output Total 200 ml Balance 280 ml 600 ml 300 ml Results/Medications Result Diagram: 08/07/16 0605 08/07/16 0605 Results 24 hrs Laboratory Tests Test 08/07/16 20:25 08/08/16 07:36 08/08/16 12:16 Bedside Glucose 120 121 110 Medications Current Medications Acetaminophen (Tylenol Tab) 650 mg Q6H PRN PO PAIN LEVEL 1-3 OR FEVER Last administered on 07/31/16 09:30; Admin Dose 650 MG; Start 07/23/16 at 20:29 Aspirin (Halfprin) 81 mg DAILY PO Last administered on 08/08/16 09:09; Admin Dose 81 MG; Start 07/23/16 at 20:29 Miscellaneous Information 1 ea NOTE XX ; Start 07/23/16 at 20:29 Glucose (Glutose) 15 gm Q15M PRN PO DECREASED GLUCOSE; Start 07/23/16 at 20:29 Glucose (Glutose) 22.5 gm Q15M PRN PO DECREASED GLUCOSE; Start 07/23/16 at 20: 29 Dextrose (D50w Syringe) 25 ml Q15M PRN IV DECREASED GLUCOSE; Start 07/23/16 at 20:29 Dextrose (D50w Syringe) 50 ml Q15M PRN IV DECREASED GLUCOSE; Start 07/23/16 at 20:29 Glucagon (Glucagen) 1 mg Q15M PRN IM DECREASED GLUCOSE; Start 07/23/16 at 20:29 Glucose (Glutose) 15 gm Q15M PRN BUCCAL DECREASED GLUCOSE; Start 07/23/16 at 20 :29 Nalbuphine HCl (Nubain) 2.5 mg Q4H PRN IV PRURITUS; Start 07/23/16 at 20:29 Ondansetron HCl (Zofran Inj) 4 mg Q6H PRN IV NAUSEA AND/OR VOMITING Last administered on 07/27/16 14:57; Admin Dose 4 MG; Start 07/23/16 at 20:29 Naloxone HCl (Narcan) 0.2 mg Q2M PRN IV FOR RESP RATE 8 OR LESS; Start at 20:29 Morphine Sulfate (morphine) 2 mg Q3H PRN IV PAIN Last administered on 10:09; Admin Dose 2 MG; Start 07/23/16 at 20:29 Diagnostic Test (Pha) (Accucheck) 1 ea 02 XX ; Start 07/23/16 at 20:29 Famotidine (Pepcid) 20 mg DAILY PO Last administered on 08/08/16 09:09; Admin Dose 20 MG; Start 07/23/16 at 20:29 Bethanechol Chloride (Urecholine) 25 mg TID PO Last administered on 08/08/16 09:10; Admin Dose 25 MG; Start 07/23/16 at 20:29 Ferrous Sulfate (Ferrous Sulfate (Ec)) 325 mg TID PO Last administered on 09:08; Admin Dose 325 MG; Start 07/23/16 at 20:29 Acetaminophen/ Hydrocodone Bitart ([place] (5/325)) 1 tab Q4H PRN PO PAIN Last administered on 08/08/16 09:11; Admin Dose 1 TAB; Start 07/23/16 at 21:00 Hydralazine HCl (Apresoline) 10 mg Q6 PRN IV SBP>170 Last administered on 22:02; Admin Dose 10 MG; Start 07/24/16 at 12:30 Enoxaparin Sodium (Lovenox) 40 mg DAILY SC Last administered on 08/08/16 09:11 ; Admin Dose 40 MG; Start 07/26/16 at 20:00 Lisinopril (Zestril) 20 mg BID PO Last administered on 08/08/16 09:10; Admin Dose 20 MG; Start 07/27/16 at 21:00 Hydralazine HCl (Apresoline) 50 mg BID PO Last administered on 08/08/16 09:10 ; Admin Dose 50 MG; Start 07/30/16 at 21:00 Carvedilol (Coreg) 12.5 mg BID PO Last administered on 08/08/16 09:09; Admin Dose 12.5 MG; Start 08/03/16 at 21:00 Furosemide (Lasix) 20 mg DAILY PO Last administered on 08/08/16 09:10; Admin Dose 20 MG; Start 08/04/16 at 09:00 Nifedipine (Procardia Xl) 30 mg DAILY PO Last administered on 08/08/16 09:09; Admin Dose 30 MG; Start 08/06/16 at 12:00 Assessment/Plan Additional Assessment/Plan Rehab- Left intertrochanteric hip fracture status post ORIF. Continue rehab treatment program Acute pain syndrome-better Hypertension. diabetes. Left breast carcinoma with history of mastectomy and chemotherapy NEENA BOYLE MD Aug 08, 2016 12:40
--- NOTE | 2016-08-08 16:23 | CONS ---
Date/Time of Note Date/Time of Note DATE: 08/08/16 TIME: 16:21 Assessment/Plan Assessment/Plan Additional Assessment/Plan Hip fracture status post surgical repair Preserved ejection fraction Hypertension, improved Diabetes Breast cancer -Blood pressure trend is improving. Would continue current medication regimen and if needed, could increase frequency of Procardia to twice daily if blood pressure still not well controlled. Consultation Date/Type/Reason Admit Date/Time Jul 23, 2016 at 19:40 Type of Consultation: cv 24 HR Interval Summary Free Text/Dictation Denies chest pain, shortness of breath or palpitations. Complains of fatigue Exam/Review of Systems Vital Signs Vitals Vital Signs Date Time Temp Pulse Resp B/P Pulse Ox O2 Delivery O2 Flow Rate FiO2 08/08/16 10:00 98.7 78 18 164/70 97 Intake and Output 08/07/16 08/07/16 08/08/16 15:00 23:00 07:00 Intake Total 480 ml 600 ml 300 ml Output Total 200 ml Balance 280 ml 600 ml 300 ml Exam Sitting in wheelchair, no apparent distress Constitutional: alert, frail, oriented Head: normocephalic Neck: supple Respiratory: other (Coarse breath sounds bilaterally, no wheezing) Cardiovascular: other (S1-S2 heard), regular rate and rhythm Gastrointestinal: bowel sounds, non-tender, other (No guarding), soft Extremities: edema (Trace), other (No cyanosis) Results Result Diagram: 08/07/1660408/07/16604 Results 24 hrs Laboratory Tests Test 08/07/16 20:25 08/08/16 07:36 08/08/16 12:16 Bedside Glucose 120 121 110 Medications Medications Current Medications Acetaminophen (Tylenol Tab) 650 mg Q6H PRN PO PAIN LEVEL 1-3 OR FEVER Last administered on 07/31/16 09:30; Admin Dose 650 MG; Start 07/23/16 at 20:29 Aspirin (Halfprin) 81 mg DAILY PO Last administered on 08/08/16 09:09; Admin Dose 81 MG; Start 07/23/16 at 20:29 Miscellaneous Information 1 ea NOTE XX ; Start 07/23/16 at 20:29 Glucose (Glutose) 15 gm Q15M PRN PO DECREASED GLUCOSE; Start 07/23/16 at 20:29 Glucose (Glutose) 22.5 gm Q15M PRN PO DECREASED GLUCOSE; Start 07/23/16 at 20: 29 Dextrose (D50w Syringe) 25 ml Q15M PRN IV DECREASED GLUCOSE; Start 07/23/16 at 20:29 Dextrose (D50w Syringe) 50 ml Q15M PRN IV DECREASED GLUCOSE; Start 07/23/16 at 20:29 Glucagon (Glucagen) 1 mg Q15M PRN IM DECREASED GLUCOSE; Start 07/23/16 at 20:29 Glucose (Glutose) 15 gm Q15M PRN BUCCAL DECREASED GLUCOSE; Start 07/23/16 at 20 :29 Nalbuphine HCl (Nubain) 2.5 mg Q4H PRN IV PRURITUS; Start 07/23/16 at 20:29 Ondansetron HCl (Zofran Inj) 4 mg Q6H PRN IV NAUSEA AND/OR VOMITING Last administered on 07/27/16 14:57; Admin Dose 4 MG; Start 07/23/16 at 20:29 Naloxone HCl (Narcan) 0.2 mg Q2M PRN IV FOR RESP RATE 8 OR LESS; Start at 20:29 Morphine Sulfate (morphine) 2 mg Q3H PRN IV PAIN Last administered on 10:09; Admin Dose 2 MG; Start 07/23/16 at 20:29 Diagnostic Test (Pha) (Accucheck) 1 ea 02 XX ; Start 07/23/16 at 20:29 Famotidine (Pepcid) 20 mg DAILY PO Last administered on 08/08/16 09:09; Admin Dose 20 MG; Start 07/23/16 at 20:29 Bethanechol Chloride (Urecholine) 25 mg TID PO Last administered on 08/08/16 12:42; Admin Dose 25 MG; Start 07/23/16 at 20:29 Ferrous Sulfate (Ferrous Sulfate (Ec)) 325 mg TID PO Last administered on 12:42; Admin Dose 325 MG; Start 07/23/16 at 20:29 Acetaminophen/ Hydrocodone Bitart ([place] (5/325)) 1 tab Q4H PRN PO PAIN Last administered on 08/08/16 09:11; Admin Dose 1 TAB; Start 07/23/16 at 21:00 Hydralazine HCl (Apresoline) 10 mg Q6 PRN IV SBP>170 Last administered on 22:02; Admin Dose 10 MG; Start 07/24/16 at 12:30 Enoxaparin Sodium (Lovenox) 40 mg DAILY SC Last administered on 08/08/16 09:11 ; Admin Dose 40 MG; Start 07/26/16 at 20:00 Lisinopril (Zestril) 20 mg BID PO Last administered on 08/08/16 09:10; Admin Dose 20 MG; Start 07/27/16 at 21:00 Hydralazine HCl (Apresoline) 50 mg BID PO Last administered on 08/08/16 09:10 ; Admin Dose 50 MG; Start 07/30/16 at 21:00 Carvedilol (Coreg) 12.5 mg BID PO Last administered on 08/08/16 09:09; Admin Dose 12.5 MG; Start 08/03/16 at 21:00 Furosemide (Lasix) 20 mg DAILY PO Last administered on 08/08/16 09:10; Admin Dose 20 MG; Start 08/04/16 at 09:00 Nifedipine (Procardia Xl) 30 mg DAILY PO Last administered on 08/08/16 09:09; Admin Dose 30 MG; Start 08/06/16 at 12:00 Jose Hunt DO Aug 08, 2016 16:23
--- NOTE | 2016-08-08 17:25 | PN ---
DATE: 08/08/2016 TYPE OF PROGRESS NOTE: Psychological, individual session 06076. This is a followup on a patient who was seen last week. The patient was seen in her wheelchair. Th e patient has just finished her physical therapy. The patient reports that she does feel weak and s till feels depressed. The patient is motivated to try and get stronger and better so she can return home. The patient does say that she is trying her best. I worked with the patient to try to encou rage her to continue to work on her emotions as well as her physical stamina. Dictated By: ARUNA SCHWARTZ PHD RK/ALTAGRACIA Conf#: [id number] DID#: [id number]
--- NOTE | 2016-08-08 18:10 | PN ---
Date/Time of Note Date/Time of Note DATE: 08/08/16 TIME: 18:08 Assessment/Plan VTE Prophylaxis VTE Prophylaxis Intervention: SCD's Lines/Catheters IV [facility] Saline Lock Urinary Cath still in place: No Assessment/Plan Chief Complaint/Hosp Course Assessment/Plan - Intertrochanteric fracture of the left hip. S/p ORIF of the left hip 07/[address] Anderson, orthopedic surgery. Continue PT. continue pain management. - Breast cancer, status post left breast mastectomy and chemotherapy - Diabetes mellitus type 2, continue metformin and NovoLog from mild algorithm sliding scale - Hypertension, continue lisinopril, Coreg, hydralazine, Procardia. Dr. Hunt is following in cardiology consultation. Continue to optimize blood pressure medication per cardiology. Further recommendations based on clinical course. Plan of care discussed with Dr. Hinds. Problems: Subjective 24 Hr Interval Summary Free Text/Dictation Patient looks comfortable sitting in chair, left hip surgical incision is intact with Steri-Strips, dry and intact, patient pain pain is well controlled, continues to participate and work with physical therapy, hypertension improved Exam/Review of Systems Vital Signs Vitals Vital Signs Date Time Temp Pulse Resp B/P Pulse Ox O2 Delivery O2 Flow Rate FiO2 08/08/16 10:00 98.7 78 18 164/70 97 Intake and Output 08/07/16 08/07/16 08/08/16 14:59 22:59 06:59 Intake Total 480 ml 600 ml 300 ml Output Total 200 ml Balance 280 ml 600 ml 300 ml Exam PHYSICAL ASSESSMENT: GENERAL: Well-developed, obese gentleman. Currently, he is awake, alert, in no acute distress. HEENT: Head is atraumatic, normocephalic. PERRLA. NECK: Supple. No cervical lymphadenopathy, no thyromegaly. CHEST: Lungs clear, both slightly diminished at the bases. There are no rhonchi, wheezes noted. CARDIOVASCULAR: Normal S1, S2. No murmurs, gallops, clicks, rubs noted. ABDOMEN: Protuberant, soft, nondistended, nontender. Bowel sounds present. EXTREMITIES: The patient has mild edema, 1+. No clubbing, no cyanosis. Pulses equal bilaterally 2+. SKIN: There is no rash, petechiae noted. NEUROLOGIC: The patient is awake, alert, and oriented x4 Results Result Diagram: 08/07/16 0605 08/07/16 0605 Results 24 hrs Laboratory Tests Test 08/07/16 20:25 08/08/16 07:36 08/08/16 12:16 08/08/16 17:13 Bedside Glucose 120 121 110 106 Medications Medications Current Medications Acetaminophen (Tylenol Tab) 650 mg Q6H PRN PO PAIN LEVEL 1-3 OR FEVER Last administered on 07/31/16 09:30; Admin Dose 650 MG; Start 07/23/16 at 20:29 Aspirin (Halfprin) 81 mg DAILY PO Last administered on 08/08/16 09:09; Admin Dose 81 MG; Start 07/23/16 at 20:29 Miscellaneous Information 1 ea NOTE XX ; Start 07/23/16 at 20:29 Glucose (Glutose) 15 gm Q15M PRN PO DECREASED GLUCOSE; Start 07/23/16 at 20:29 Glucose (Glutose) 22.5 gm Q15M PRN PO DECREASED GLUCOSE; Start 07/23/16 at 20: 29 Dextrose (D50w Syringe) 25 ml Q15M PRN IV DECREASED GLUCOSE; Start 07/23/16 at 20:29 Dextrose (D50w Syringe) 50 ml Q15M PRN IV DECREASED GLUCOSE; Start 07/23/16 at 20:29 Glucagon (Glucagen) 1 mg Q15M PRN IM DECREASED GLUCOSE; Start 07/23/16 at 20:29 Glucose (Glutose) 15 gm Q15M PRN BUCCAL DECREASED GLUCOSE; Start 07/23/16 at 20 :29 Nalbuphine HCl (Nubain) 2.5 mg Q4H PRN IV PRURITUS; Start 07/23/16 at 20:29 Ondansetron HCl (Zofran Inj) 4 mg Q6H PRN IV NAUSEA AND/OR VOMITING Last administered on 07/27/16 14:57; Admin Dose 4 MG; Start 07/23/16 at 20:29 Naloxone HCl (Narcan) 0.2 mg Q2M PRN IV FOR RESP RATE 8 OR LESS; Start at 20:29 Morphine Sulfate (morphine) 2 mg Q3H PRN IV PAIN Last administered on 10:09; Admin Dose 2 MG; Start 07/23/16 at 20:29 Diagnostic Test (Pha) (Accucheck) 1 ea 02 XX ; Start 07/23/16 at 20:29 Famotidine (Pepcid) 20 mg DAILY PO Last administered on 08/08/16 09:09; Admin Dose 20 MG; Start 07/23/16 at 20:29 Bethanechol Chloride (Urecholine) 25 mg TID PO Last administered on 08/08/16 12:42; Admin Dose 25 MG; Start 07/23/16 at 20:29 Ferrous Sulfate (Ferrous Sulfate (Ec)) 325 mg TID PO Last administered on 12:42; Admin Dose 325 MG; Start 07/23/16 at 20:29 Acetaminophen/ Hydrocodone Bitart ([place] (5/325)) 1 tab Q4H PRN PO PAIN Last administered on 08/08/16 17:23; Admin Dose 1 TAB; Start 07/23/16 at 21:00 Hydralazine HCl (Apresoline) 10 mg Q6 PRN IV SBP>170 Last administered on 22:02; Admin Dose 10 MG; Start 07/24/16 at 12:30 Enoxaparin Sodium (Lovenox) 40 mg DAILY SC Last administered on 08/08/16 09:11 ; Admin Dose 40 MG; Start 07/26/16 at 20:00 Lisinopril (Zestril) 20 mg BID PO Last administered on 08/08/16 09:10; Admin Dose 20 MG; Start 07/27/16 at 21:00 Hydralazine HCl (Apresoline) 50 mg BID PO Last administered on 08/08/16 09:10 ; Admin Dose 50 MG; Start 07/30/16 at 21:00 Carvedilol (Coreg) 12.5 mg BID PO Last administered on 08/08/16 09:09; Admin Dose 12.5 MG; Start 08/03/16 at 21:00 Furosemide (Lasix) 20 mg DAILY PO Last administered on 08/08/16 09:10; Admin Dose 20 MG; Start 08/04/16 at 09:00 Nifedipine (Procardia Xl) 30 mg DAILY PO Last administered on 08/08/16 09:09; Admin Dose 30 MG; Start 08/06/16 at 12:00 ERICK PRICE Aug 08, 2016 18:10
[2016-08-08 19:50] VITALS: BP 118/56; RESP 20
[2016-08-08 20:28] VITALS: BP 132/61; PULSE 74
[2016-08-09] MEDS: ACCU-CHEK XX SCH (02:00)
[2016-08-09] MEDS: HYDROCODONE/APAP (5/325) TAB PO PRN ×3 (02:39→17:23)
[2016-08-09 06:25] VITALS: BP 157/74; PULSE 73
[2016-08-09 07:30] VITALS: BP 181/84; RESP 18
[2016-08-09] MEDS: INSULIN ASPART [NOVOLOG] 3 ML PEN SC SCH ×4 (07:35→21:00)
[2016-08-09] MEDS: metFORMIN 500 MG TAB PO SCH ×3 (08:00→17:24)
[2016-08-09] MEDS: ENOXAPARIN 40 MG/0.4 ML SYG SC SCH (09:21)
[2016-08-09] MEDS: FUROSEMIDE 20 MG TAB PO SCH (09:25)
[2016-08-09] MEDS: FAMOTIDINE 20 MG TAB PO SCH (09:26)
[2016-08-09] MEDS: BETHANECHOL 25 MG TAB PO SCH ×3 (09:26→21:02)
[2016-08-09] MEDS: ASPIRIN (EC) 81 MG TAB PO SCH (09:26)
[2016-08-09] MEDS: NIFEdipine (XL) 30 MG TAB PO SCH ×2 (09:26→21:04)
[2016-08-09] MEDS: FERROUS SULFATE (EC) 325 MG TAB PO SCH ×3 (09:27→21:02)
[2016-08-09] MEDS: LISINOPRIL 20 MG TAB PO SCH ×2 (09:27→21:03)
--- NOTE | 2016-08-09 12:06 | CONS ---
Date/Time of Note Date/Time of Note DATE: 08/09/16 TIME: 12:05 Consult Date/Type/Reason Admit Date/Time Jul 23, 2016 at 19:40 Type of Consultation: cv Subjective Patient doing well, up to wheelchair Objective pulm-cta abd-soft min assist transfer; sba wheelchair mobility Vital Signs Date Time Temp Pulse Resp B/P Pulse Ox O2 Delivery O2 Flow Rate FiO2 08/09/16 06:25 73 157/74 08/08/16 19:50 98.0 20 97 Intake and Output 08/08/16 08/08/16 08/09/16 15:00 23:00 07:00 Intake Total 480 ml 960 ml 200 ml Balance 480 ml 960 ml 200 ml Results/Medications Result Diagram: 08/07/16 0605 08/07/16 0605 Results 24 hrs Laboratory Tests Test 08/08/16 12:16 08/08/16 17:13 08/08/16 20:26 08/09/16 07:45 Bedside Glucose 110 106 104 108 Test 08/09/16 12:02 Bedside Glucose 108 Medications Current Medications Acetaminophen (Tylenol Tab) 650 mg Q6H PRN PO PAIN LEVEL 1-3 OR FEVER Last administered on 07/31/16 09:30; Admin Dose 650 MG; Start 07/23/16 at 20:29 Aspirin (Halfprin) 81 mg DAILY PO Last administered on 08/09/16 09:26; Admin Dose 81 MG; Start 07/23/16 at 20:29 Miscellaneous Information 1 ea NOTE XX ; Start 07/23/16 at 20:29 Glucose (Glutose) 15 gm Q15M PRN PO DECREASED GLUCOSE; Start 07/23/16 at 20:29 Glucose (Glutose) 22.5 gm Q15M PRN PO DECREASED GLUCOSE; Start 07/23/16 at 20: 29 Dextrose (D50w Syringe) 25 ml Q15M PRN IV DECREASED GLUCOSE; Start 07/23/16 at 20:29 Dextrose (D50w Syringe) 50 ml Q15M PRN IV DECREASED GLUCOSE; Start 07/23/16 at 20:29 Glucagon (Glucagen) 1 mg Q15M PRN IM DECREASED GLUCOSE; Start 07/23/16 at 20:29 Glucose (Glutose) 15 gm Q15M PRN BUCCAL DECREASED GLUCOSE; Start 07/23/16 at 20 :29 Nalbuphine HCl (Nubain) 2.5 mg Q4H PRN IV PRURITUS; Start 07/23/16 at 20:29 Ondansetron HCl (Zofran Inj) 4 mg Q6H PRN IV NAUSEA AND/OR VOMITING Last administered on 07/27/16 14:57; Admin Dose 4 MG; Start 07/23/16 at 20:29 Naloxone HCl (Narcan) 0.2 mg Q2M PRN IV FOR RESP RATE 8 OR LESS; Start at 20:29 Morphine Sulfate (morphine) 2 mg Q3H PRN IV PAIN Last administered on 10:09; Admin Dose 2 MG; Start 07/23/16 at 20:29 Diagnostic Test (Pha) (Accucheck) 1 ea 02 XX ; Start 07/23/16 at 20:29 Famotidine (Pepcid) 20 mg DAILY PO Last administered on 08/09/16 09:26; Admin Dose 20 MG; Start 07/23/16 at 20:29 Bethanechol Chloride (Urecholine) 25 mg TID PO Last administered on 08/09/16 09:26; Admin Dose 25 MG; Start 07/23/16 at 20:29 Ferrous Sulfate (Ferrous Sulfate (Ec)) 325 mg TID PO Last administered on 09:27; Admin Dose 325 MG; Start 07/23/16 at 20:29 Acetaminophen/ Hydrocodone Bitart ([place] (5/325)) 1 tab Q4H PRN PO PAIN Last administered on 08/09/16 08:00; Admin Dose 1 TAB; Start 07/23/16 at 21:00 Hydralazine HCl (Apresoline) 10 mg Q6 PRN IV SBP>170 Last administered on 22:02; Admin Dose 10 MG; Start 07/24/16 at 12:30 Enoxaparin Sodium (Lovenox) 40 mg DAILY SC Last administered on 08/09/16 09:21 ; Admin Dose 40 MG; Start 07/26/16 at 20:00 Lisinopril (Zestril) 20 mg BID PO Last administered on 08/09/16 09:27; Admin Dose 20 MG; Start 07/27/16 at 21:00 Hydralazine HCl (Apresoline) 50 mg BID PO Last administered on 08/09/16 09:26 ; Admin Dose 50 MG; Start 07/30/16 at 21:00 Carvedilol (Coreg) 12.5 mg BID PO Last administered on 08/09/16 09:27; Admin Dose 12.5 MG; Start 08/03/16 at 21:00 Furosemide (Lasix) 20 mg DAILY PO Last administered on 08/09/16 09:25; Admin Dose 20 MG; Start 08/04/16 at 09:00 Nifedipine (Procardia Xl) 30 mg DAILY PO Last administered on 08/09/16 09:26; Admin Dose 30 MG; Start 08/06/16 at 12:00 Assessment/Plan Additional Assessment/Plan Rehab- Left intertrochanteric hip fracture status post ORIF. Continue rehab activities, and caregiver training Acute pain syndrome-better Hypertension. diabetes. Left breast carcinoma with history of mastectomy and chemotherapy NEENA BOYLE MD Aug 09, 2016 12:06
[2016-08-09 14:19] VITALS: BP 148/69; PULSE 74
--- NOTE | 2016-08-09 15:21 | CONS ---
Date/Time of Note Date/Time of Note DATE: 08/09/16 TIME: 15:18 Assessment/Plan Assessment/Plan Additional Assessment/Plan Hip fracture status post surgical repair Preserved ejection fraction Hypertension, improved Diabetes Breast cancer -Blood pressure trend is improving but remains elevated, increase Procardia to bid. Consultation Date/Type/Reason Admit Date/Time Jul 23, 2016 at 19:40 Type of Consultation: cv 24 HR Interval Summary Free Text/Dictation no cp, sob, palpitations Exam/Review of Systems Vital Signs Vitals Vital Signs Date Time Temp Pulse Resp B/P Pulse Ox O2 Delivery O2 Flow Rate FiO2 08/09/16 14:19 74 148/69 08/09/16 07:30 98.9 18 99 Intake and Output 08/08/16 08/08/16 08/09/16 15:00 23:00 07:00 Intake Total 480 ml 960 ml 200 ml Balance 480 ml 960 ml 200 ml Exam sitting in chair Constitutional: alert, oriented Head: normocephalic Neck: supple Respiratory: other (course bs, no wheeze) Cardiovascular: other (s1s2), regular rate and rhythm Gastrointestinal: bowel sounds, non-tender, other (no guarding), soft Extremities: other (no edema or cyanosis) Results Result Diagram: 08/07/16 0608/07/16 0605 Results 24 hrs Laboratory Tests Test 08/08/16 17:13 08/08/16 20:26 08/09/16 07:45 08/09/16 12:02 Bedside Glucose 106 104 108 108 Medications Medications Current Medications Acetaminophen (Tylenol Tab) 650 mg Q6H PRN PO PAIN LEVEL 1-3 OR FEVER Last administered on 07/31/16 09:30; Admin Dose 650 MG; Start 07/23/16 at 20:29 Aspirin (Halfprin) 81 mg DAILY PO Last administered on 08/09/16 09:26; Admin Dose 81 MG; Start 07/23/16 at 20:29 Miscellaneous Information 1 ea NOTE XX ; Start 07/23/16 at 20:29 Glucose (Glutose) 15 gm Q15M PRN PO DECREASED GLUCOSE; Start 07/23/16 at 20:29 Glucose (Glutose) 22.5 gm Q15M PRN PO DECREASED GLUCOSE; Start 07/23/16 at 20: 29 Dextrose (D50w Syringe) 25 ml Q15M PRN IV DECREASED GLUCOSE; Start 07/23/16 at 20:29 Dextrose (D50w Syringe) 50 ml Q15M PRN IV DECREASED GLUCOSE; Start 07/23/16 at 20:29 Glucagon (Glucagen) 1 mg Q15M PRN IM DECREASED GLUCOSE; Start 07/23/16 at 20:29 Glucose (Glutose) 15 gm Q15M PRN BUCCAL DECREASED GLUCOSE; Start 07/23/16 at 20 :29 Nalbuphine HCl (Nubain) 2.5 mg Q4H PRN IV PRURITUS; Start 07/23/16 at 20:29 Ondansetron HCl (Zofran Inj) 4 mg Q6H PRN IV NAUSEA AND/OR VOMITING Last administered on 07/27/16 14:57; Admin Dose 4 MG; Start 07/23/16 at 20:29 Naloxone HCl (Narcan) 0.2 mg Q2M PRN IV FOR RESP RATE 8 OR LESS; Start at 20:29 Morphine Sulfate (morphine) 2 mg Q3H PRN IV PAIN Last administered on 10:09; Admin Dose 2 MG; Start 07/23/16 at 20:29 Diagnostic Test (Pha) (Accucheck) 1 ea 02 XX ; Start 07/23/16 at 20:29 Famotidine (Pepcid) 20 mg DAILY PO Last administered on 08/09/16 09:26; Admin Dose 20 MG; Start 07/23/16 at 20:29 Bethanechol Chloride (Urecholine) 25 mg TID PO Last administered on 08/09/16 12:23; Admin Dose 25 MG; Start 07/23/16 at 20:29 Ferrous Sulfate (Ferrous Sulfate (Ec)) 325 mg TID PO Last administered on 12:23; Admin Dose 325 MG; Start 07/23/16 at 20:29 Acetaminophen/ Hydrocodone Bitart ([place] (5/325)) 1 tab Q4H PRN PO PAIN Last administered on 08/09/16 08:00; Admin Dose 1 TAB; Start 07/23/16 at 21:00 Hydralazine HCl (Apresoline) 10 mg Q6 PRN IV SBP>170 Last administered on 22:02; Admin Dose 10 MG; Start 07/24/16 at 12:30 Enoxaparin Sodium (Lovenox) 40 mg DAILY SC Last administered on 08/09/16 09:21 ; Admin Dose 40 MG; Start 07/26/16 at 20:00 Lisinopril (Zestril) 20 mg BID PO Last administered on 08/09/16 09:27; Admin Dose 20 MG; Start 07/27/16 at 21:00 Hydralazine HCl (Apresoline) 50 mg BID PO Last administered on 08/09/16 09:26 ; Admin Dose 50 MG; Start 07/30/16 at 21:00 Carvedilol (Coreg) 12.5 mg BID PO Last administered on 08/09/16 09:27; Admin Dose 12.5 MG; Start 08/03/16 at 21:00 Furosemide (Lasix) 20 mg DAILY PO Last administered on 08/09/16 09:25; Admin Dose 20 MG; Start 08/04/16 at 09:00 Nifedipine (Procardia Xl) 30 mg DAILY PO Last administered on 08/09/16 09:26; Admin Dose 30 MG; Start 08/06/16 at 12:00 Jose Hunt DO Aug 09, 2016 15:21
--- NOTE | 2016-08-09 17:31 | PN ---
Date/Time of Note Date/Time of Note DATE: 08/09/16 TIME: 17:31 Assessment/Plan Lines/Catheters IV Catheter Type (from Nrsg): Saline Lock Urinary Cath still in place: No Assessment/Plan Assessment/Plan - Intertrochanteric fracture of the left hip. S/p ORIF of the left hip 07/[address] Anderson, orthopedic surgery. Continue PT. continue pain management. - Breast cancer, status post left breast mastectomy and chemotherapy - Diabetes mellitus type 2, continue metformin and NovoLog from mild algorithm sliding scale - Hypertension, continue lisinopril, Coreg, hydralazine, Procardia. Dr. Hunt is following in cardiology consultation. Continue to optimize blood pressure medication per cardiology. Further recommendations based on clinical course. Plan of care discussed with Dr. Hinds. Exam/Review of Systems Vital Signs Vitals Vital Signs Date Time Temp Pulse Resp B/P Pulse Ox O2 Delivery O2 Flow Rate FiO2 08/09/16 14:19 74 148/69 08/09/16 07:30 98.9 18 99 Intake and Output 08/08/16 08/08/16 08/09/16 15:00 23:00 07:00 Intake Total 480 ml 960 ml 200 ml Balance 480 ml 960 ml 200 ml Results Result Diagram: 08/07/16 0605 08/07/16 0605 Results 24 hrs Laboratory Tests Test 08/08/16 20:26 08/09/16 07:45 08/09/16 12:02 08/09/16 17:23 Bedside Glucose 104 108 108 106 Medications Medications Current Medications Acetaminophen (Tylenol Tab) 650 mg Q6H PRN PO PAIN LEVEL 1-3 OR FEVER Last administered on 07/31/16 09:30; Admin Dose 650 MG; Start 07/23/16 at 20:29 Aspirin (Halfprin) 81 mg DAILY PO Last administered on 08/09/16 09:26; Admin Dose 81 MG; Start 07/23/16 at 20:29 Miscellaneous Information 1 ea NOTE XX ; Start 07/23/16 at 20:29 Glucose (Glutose) 15 gm Q15M PRN PO DECREASED GLUCOSE; Start 07/23/16 at 20:29 Glucose (Glutose) 22.5 gm Q15M PRN PO DECREASED GLUCOSE; Start 07/23/16 at 20: 29 Dextrose (D50w Syringe) 25 ml Q15M PRN IV DECREASED GLUCOSE; Start 07/23/16 at 20:29 Dextrose (D50w Syringe) 50 ml Q15M PRN IV DECREASED GLUCOSE; Start 07/23/16 at 20:29 Glucagon (Glucagen) 1 mg Q15M PRN IM DECREASED GLUCOSE; Start 07/23/16 at 20:29 Glucose (Glutose) 15 gm Q15M PRN BUCCAL DECREASED GLUCOSE; Start 07/23/16 at 20 :29 Nalbuphine HCl (Nubain) 2.5 mg Q4H PRN IV PRURITUS; Start 07/23/16 at 20:29 Ondansetron HCl (Zofran Inj) 4 mg Q6H PRN IV NAUSEA AND/OR VOMITING Last administered on 07/27/16 14:57; Admin Dose 4 MG; Start 07/23/16 at 20:29 Naloxone HCl (Narcan) 0.2 mg Q2M PRN IV FOR RESP RATE 8 OR LESS; Start at 20:29 Morphine Sulfate (morphine) 2 mg Q3H PRN IV PAIN Last administered on 10:09; Admin Dose 2 MG; Start 07/23/16 at 20:29 Diagnostic Test (Pha) (Accucheck) 1 ea 02 XX ; Start 07/23/16 at 20:29 Famotidine (Pepcid) 20 mg DAILY PO Last administered on 08/09/16 09:26; Admin Dose 20 MG; Start 07/23/16 at 20:29 Bethanechol Chloride (Urecholine) 25 mg TID PO Last administered on 08/09/16 12:23; Admin Dose 25 MG; Start 07/23/16 at 20:29 Ferrous Sulfate (Ferrous Sulfate (Ec)) 325 mg TID PO Last administered on 12:23; Admin Dose 325 MG; Start 07/23/16 at 20:29 Acetaminophen/ Hydrocodone Bitart ([place] (5/325)) 1 tab Q4H PRN PO PAIN Last administered on 08/09/16 17:23; Admin Dose 1 TAB; Start 07/23/16 at 21:00 Hydralazine HCl (Apresoline) 10 mg Q6 PRN IV SBP>170 Last administered on 22:02; Admin Dose 10 MG; Start 07/24/16 at 12:30 Enoxaparin Sodium (Lovenox) 40 mg DAILY SC Last administered on 08/09/16 09:21 ; Admin Dose 40 MG; Start 07/26/16 at 20:00 Lisinopril (Zestril) 20 mg BID PO Last administered on 08/09/16 09:27; Admin Dose 20 MG; Start 07/27/16 at 21:00 Hydralazine HCl (Apresoline) 50 mg BID PO Last administered on 08/09/16 09:26 ; Admin Dose 50 MG; Start 07/30/16 at 21:00 Carvedilol (Coreg) 12.5 mg BID PO Last administered on 08/09/16 09:27; Admin Dose 12.5 MG; Start 08/03/16 at 21:00 Furosemide (Lasix) 20 mg DAILY PO Last administered on 08/09/16 09:25; Admin Dose 20 MG; Start 08/04/16 at 09:00 Nifedipine (Procardia Xl) 30 mg BID PO ; Start 08/09/16 at 21:00 ARUNA ANTHONY Aug 09, 2016 17:31
[2016-08-09 20:00] VITALS: BP 153/71; PULSE 76; RESP 20
[2016-08-10] MEDS: ACCU-CHEK XX SCH (02:00)
[2016-08-10 07:30] VITALS: BP 138/66; RESP 18
[2016-08-10] MEDS: INSULIN ASPART [NOVOLOG] 3 ML PEN SC SCH (07:35)
[2016-08-10] MEDS: metFORMIN 500 MG TAB PO SCH (08:35)
[2016-08-10] MEDS: FUROSEMIDE 20 MG TAB PO SCH (08:36)
[2016-08-10] MEDS: FAMOTIDINE 20 MG TAB PO SCH (08:36)
[2016-08-10] MEDS: HYDROCODONE/APAP (5/325) TAB PO PRN (08:36)
[2016-08-10] MEDS: FERROUS SULFATE (EC) 325 MG TAB PO SCH (08:36)
[2016-08-10] MEDS: ASPIRIN (EC) 81 MG TAB PO SCH (08:36)
[2016-08-10] MEDS: LISINOPRIL 20 MG TAB PO SCH (08:37)
[2016-08-10] MEDS: BETHANECHOL 25 MG TAB PO SCH (08:37)
[2016-08-10] MEDS: NIFEdipine (XL) 30 MG TAB PO SCH (08:37)
[2016-08-10] MEDS: ENOXAPARIN 40 MG/0.4 ML SYG SC SCH (08:39)
--- NOTE | 2016-08-10 11:24 | PN ---
Date/Time of Note Date/Time of Note DATE: 08/10/16 TIME: 11:23 Assessment/Plan VTE Prophylaxis VTE Prophylaxis Intervention: SCD's Lines/Catheters [facility] Urinary Cath still in place: No Assessment/Plan Chief Complaint/Hosp Course Assessment/Plan - Intertrochanteric fracture of the left hip. S/p ORIF of the left hip 07/[address] Anderson, orthopedic surgery. Continue PT. continue pain management. - Breast cancer, status post left breast mastectomy and chemotherapy - Diabetes mellitus type 2, continue metformin and NovoLog from mild algorithm sliding scale - Hypertension, continue lisinopril, Coreg, hydralazine, Procardia. Dr. Hunt is following in cardiology consultation. Continue to optimize blood pressure medication per cardiology. D/ c planning Further recommendations based on clinical course. Plan of care discussed with Dr. Hinds. Problems: Subjective 24 Hr Interval Summary Free Text/Dictation BP is better on current regimen, d/c planning Exam/Review of Systems Vital Signs Vitals Vital Signs Date Time Temp Pulse Resp B/P Pulse Ox O2 Delivery O2 Flow Rate FiO2 08/10/16 07:30 98.2 80 18 138/66 97 08/09/16 20:00 Room Air Intake and Output 08/09/16 08/09/16 08/10/16 15:00 23:00 07:00 Intake Total 360 ml 240 ml Balance 360 ml 240 ml Exam PHYSICAL ASSESSMENT: GENERAL: Well-developed, obese gentleman. Currently, he is awake, alert, in no acute distress. HEENT: Head is atraumatic, normocephalic. PERRLA. NECK: Supple. No cervical lymphadenopathy, no thyromegaly. CHEST: Lungs clear, both slightly diminished at the bases. There are no rhonchi, wheezes noted. CARDIOVASCULAR: Normal S1, S2. No murmurs, gallops, clicks, rubs noted. ABDOMEN: Protuberant, soft, nondistended, nontender. Bowel sounds present. EXTREMITIES: The patient has mild edema, 1+. No clubbing, no cyanosis. Pulses equal bilaterally 2+. SKIN: There is no rash, petechiae noted. NEUROLOGIC: The patient is awake, alert, and oriented x4 Results Result Diagram: 08/07/16 0608/07/16 0605 Results 24 hrs Laboratory Tests Test 08/09/16 12:02 08/09/16 17:23 08/09/16 20:54 08/10/16 08:15 Bedside Glucose 108 106 88 120 Medications Medications Current Medications Acetaminophen (Tylenol Tab) 650 mg Q6H PRN PO PAIN LEVEL 1-3 OR FEVER Last administered on 07/31/16 09:30; Admin Dose 650 MG; Start 07/23/16 at 20:29 Aspirin (Halfprin) 81 mg DAILY PO Last administered on 08/10/16 08:36; Admin Dose 81 MG; Start 07/23/16 at 20:29 Miscellaneous Information 1 ea NOTE XX ; Start 07/23/16 at 20:29 Glucose (Glutose) 15 gm Q15M PRN PO DECREASED GLUCOSE; Start 07/23/16 at 20:29 Glucose (Glutose) 22.5 gm Q15M PRN PO DECREASED GLUCOSE; Start 07/23/16 at 20: 29 Dextrose (D50w Syringe) 25 ml Q15M PRN IV DECREASED GLUCOSE; Start 07/23/16 at 20:29 Dextrose (D50w Syringe) 50 ml Q15M PRN IV DECREASED GLUCOSE; Start 07/23/16 at 20:29 Glucagon (Glucagen) 1 mg Q15M PRN IM DECREASED GLUCOSE; Start 07/23/16 at 20:29 Glucose (Glutose) 15 gm Q15M PRN BUCCAL DECREASED GLUCOSE; Start 07/23/16 at 20 :29 Nalbuphine HCl (Nubain) 2.5 mg Q4H PRN IV PRURITUS; Start 07/23/16 at 20:29 Ondansetron HCl (Zofran Inj) 4 mg Q6H PRN IV NAUSEA AND/OR VOMITING Last administered on 07/27/16 14:57; Admin Dose 4 MG; Start 07/23/16 at 20:29 Naloxone HCl (Narcan) 0.2 mg Q2M PRN IV FOR RESP RATE 8 OR LESS; Start at 20:29 Morphine Sulfate (morphine) 2 mg Q3H PRN IV PAIN Last administered on 10:09; Admin Dose 2 MG; Start 07/23/16 at 20:29 Diagnostic Test (Pha) (Accucheck) 1 ea 02 XX ; Start 07/23/16 at 20:29 Famotidine (Pepcid) 20 mg DAILY PO Last administered on 08/10/16 08:36; Admin Dose 20 MG; Start 07/23/16 at 20:29 Bethanechol Chloride (Urecholine) 25 mg TID PO Last administered on 08/10/16 08:37; Admin Dose 25 MG; Start 07/23/16 at 20:29 Ferrous Sulfate (Ferrous Sulfate (Ec)) 325 mg TID PO Last administered on 08:36; Admin Dose 325 MG; Start 07/23/16 at 20:29 Acetaminophen/ Hydrocodone Bitart ([place] (5/325)) 1 tab Q4H PRN PO PAIN Last administered on 08/10/16 08:36; Admin Dose 1 TAB; Start 07/23/16 at 21:00 Hydralazine HCl (Apresoline) 10 mg Q6 PRN IV SBP>170 Last administered on 22:02; Admin Dose 10 MG; Start 07/24/16 at 12:30 Enoxaparin Sodium (Lovenox) 40 mg DAILY SC Last administered on 08/10/16 08:39 ; Admin Dose 40 MG; Start 07/26/16 at 20:00 Lisinopril (Zestril) 20 mg BID PO Last administered on 08/10/16 08:37; Admin Dose 20 MG; Start 07/27/16 at 21:00 Hydralazine HCl (Apresoline) 50 mg BID PO Last administered on 08/10/16 08:37 ; Admin Dose 50 MG; Start 07/30/16 at 21:00 Carvedilol (Coreg) 12.5 mg BID PO Last administered on 08/10/16 08:35; Admin Dose 12.5 MG; Start 08/03/16 at 21:00 Furosemide (Lasix) 20 mg DAILY PO Last administered on 08/10/16 08:36; Admin Dose 20 MG; Start 08/04/16 at 09:00 Nifedipine (Procardia Xl) 30 mg BID PO Last administered on 08/10/16 08:37; Admin Dose 30 MG; Start 08/09/16 at 21:00 ERICK PRICE Aug 10, 2016 11:24
--- NOTE | 2016-08-14 14:09 | DS ---
DATE OF ADMISSION: 07/23/2016 DATE OF DISCHARGE: 08/10/2016 ADMISSION DIAGNOSES: 1. Left intertrochanteric hip fracture status post open reduction internal fixation. 2. Acute pain syndrome. 3. Hypertension. 4. Uncontrolled diabetes mellitus. 5. History of left breast cancer with history of mastectomy and chemotherapy. 6. Impairments in self-care and mobility. DISCHARGE DIAGNOSES: 1. Left intertrochanteric hip fracture status post open reduction internal fixation. 2. Acute pain syndrome. 3. Hypertension. 4. Diabetes mellitus. 5. History of left breast cancer with history of mastectomy and chemotherapy. 6. Improvements in self-care and mobility. HOSPITAL COURSE: The patient was admitted for comprehensive interdisciplinary acute rehab and made excellent functional gains during the course of the stay. The patient progressed from an initial ma ximal assist for self-care and mobility tasks and progressed to the point of minimal assist for self -care and mobility including transfers and ambulation with the use of a front-wheeled walker. The p shahana is being discharged home with family. Family was able to demonstrate safe carryover of techn ique. DISCHARGE MEDICATIONS: Per the medication reconciliation sheet. CONDITION ON DISCHARGE: Stable. Dictated By: NEENA WILDE/ALTAGRACIA Conf#: [id number] DID#: [id number]
== END 2016-08-10 11:45 | disposition home health service (06) | DRG 561 ==
LOC: VRC 19:40
PROVIDERS: ADMIT Physical Medicine & Rehabilitation; ATTEND Internal Medicine
DX: Z47.1 Aftercare following joint replacement surgery (principal); E11.65 Type 2 diabetes mellitus with hyperglycemia; Z96.642 Presence of left artificial hip joint; G89.18 Other acute postprocedural pain; I10 Essential (primary) hypertension; Z85.3 Personal history of malignant neoplasm of breast; Z74.09 Other reduced mobility; D50.9 Iron deficiency anemia, unspecified; F06.31 Mood disorder due to known physiological condition with depressive features
CPT/HCPCS: 80048; 80053; 81001; 81003; 82962; 83735; 85025; 87081; 87086; 93923; 97110; 97112; 97116; 97150; 97163; 97166; 97530; 97535; 97542; J0360; J1650; J1815; J2270; J2405; J3475